=== PATIENT | female | born 1935 | race Caucasian/White ===

== ENCOUNTER → 2019-07-19 | Outpatient (CLI) | payer MEDICARE ==
--- NOTE | 2019-07-19 11:13 | BD ---
EXAMINATION TYPE: Axial Bone Density DATE OF EXAM: 07/19/2019 COMPARISON: NONE CLINICAL HISTORY: Postmenopausal female, disorder of bone Height: 63 Weight: 205 FRAX RISK QUESTIONS: Alcohol (3 or more units per day): no Family History (Parent hip fracture): no Glucocorticoids (More than 3mos): no (Ex: prednisone, prednisolone, methylprednisolone, dexamethasone, and hydrocortisone). History of Fracture in Adulthood: no Secondary Osteoporosis: 1. Type 1 Diabetes: no 2. Hyperthyroidism: no 3. Menopause before 45: no 4. Malnutrition: no 5. Chronic liver disease: no Rheumatoid Arthritis: no Current Tobacco Use: no RISK FACTORS HISTORY OF: Family History of Osteoporosis: unsure Active: yes Diet low in dairy products/other sources of calcium: at least one serving a day Postmenopausal woman: yes Take estrogen and/or progesterone medications: no Lost more than 2 inches in height since high school: no Frequent falls: no Poor Health: no, fair health because of dental problems Hyperparathyroidism: no Adrenal Insufficiency: no MEDICATIONS: Prednisone or other steroids: no Thyroid Medications: yes Which medication: Synthroid How Long: unsure, at least over 10 years Osteoporosis Medications: yes, Evista How long: unsure Additional Medications: medication for AFib ; Lipitor; blood pressure med Additional History: bilateral knee replacement; hypothyroid EXAM MEASUREMENTS: Bone mineral densitometry was performed using the [employer] System. Bone mineral density as measured about the Lumbar spine is: ----- L1-L4(G/cm2): 0.955 T Score Values are as follows: ----- L2: -1.3 ----- L3: -1.6 ----- L4: -2.3 ----- L1-L4: -1.9 Bone mineral density not previously done t this facility; done elsewhere many years ago Bone mineral density about the R hip (g/cm2): 0.694 Bone mineral density about the L hip (g/cm2): 0.668 T Score values are as follows: -----R Neck: -2.5 -----L Neck: -2.7 -----R Total: -2.6 -----L Total: -2.2 Bone mineral density not previously done at this facility; done elsewhere years ago IMPRESSION: Osteoporosis (T Score less than -2.5) femoral neck level left hip and overall right hip. Bone density likely falsely elevated in the low back. There is increased fracture risk and therapy is usually indicated based on age. Re-Screen 1-2 years. NOTE: T-SCORE=SD OF THE YOUNG ADULT MEAN.
== END ==
LOC: RADBDWWP 09:11
PROVIDERS: ATTEND Internal Medicine
DX: M81.8 Other osteoporosis without current pathological fracture (principal)
CPT/HCPCS: 77080

== ENCOUNTER → 2020-03-26 | Outpatient (CLI) | payer MEDICARE | END | disposition home or self-care (01) | LOC: LABWHC1 12:09 | PROVIDERS: ATTEND Ophthalmology | DX: I77.89 Other specified disorders of arteries and arterioles (principal) | CPT/HCPCS: 36415; 85652; 86140 ==

== ENCOUNTER → 2021-02-14 | Outpatient (CLI) | payer MEDICARE ==
--- NOTE | 2021-02-14 13:18 | XR ---
EXAMINATION TYPE: XR ankle complete RT DATE OF EXAM: 02/14/2021 COMPARISON: NONE HISTORY: Pain TECHNIQUE: Frontal, lateral and oblique images of the right ankle are obtained. COMPARISON: None. FINDINGS: There is no acute fracture/dislocation evident. The joint spaces appear within normal chatterjee its. Lateral soft tissue swelling noted. IMPRESSION: There is no acute fracture or dislocation seen.
== END | disposition home or self-care (01) ==
LOC: RADXRMAIN 11:11
PROVIDERS: ATTEND Internal Medicine
DX: M25.571 Pain in right ankle and joints of right foot (principal)

== ENCOUNTER 2021-06-21 11:48 | Emergency (ER) | payer MEDICARE ==
--- NOTE | 2021-06-21 12:16 | ED ---
General Adult HPI - General Chief complaint: Syncope Stated complaint: Syncope Time Seen by Provider: 06/21/21 12:00 Source: patient, EMS, RN notes reviewed, old records reviewed Mode of arrival: EMS Limitations: no limitations - History of Present Illness Initial comments: This is an 86-year-old female presents emergency department stating she got up l ate today did not eat breakfast wanted to take a hot shower. Patient states when she had shower she passed out. There is no indication of how long she was unconscious for but the came in and she woke up fairly quickly according to EMS. Patient denies any headache patient denies any numbness weakness. Patient denies any lightheadedness prior to the event. Patient denies any chest pain palpitations difficulty breathing shortness of breath. Patient states she did not take her Toprol today. Patient states she takes eliquis. Patient does not know if she's ever been told she has a slow heart rate. Patient currently has no symptoms. Patient states there was no injury when she fell onto the shower. - Related Data Home Medications Medication Instructions Recorded Confirmed Apixaban [Eliquis] 5 mg PO BID 06/21/21 06/21/21 Atorvastatin [Lipitor] 20 mg PO DAILY 06/21/21 06/21/21 Cholecalciferol [Vitamin D3 (25 50 mcg PO DAILY 06/21/21 06/21/21 Mcg = 1000 Iu)] Levothyroxine Sodium [Synthroid] 137 mcg PO DAILY 06/21/21 06/21/21 Metoprolol Succinate (ER) [Toprol 25 mg PO DAILY 06/21/21 06/21/21 Xl] Raloxifene HCl 60 mg PO DAILY 06/21/21 06/21/21 Vit C/E/Zn/Coppr/Lutein/Zeaxan 1 cap PO BID 06/21/21 06/21/21 [Preservision Areds 2 Softgel] Allergies Allergy/AdvReac Type Severity Reaction Status Date / Time No Known Allergies Allergy Verified 06/21/21 13:53 Review of Systems ROS Statement: Those systems with pertinent positive or pertinent negative responses have been documented in the HPI. ROS Other: All systems not noted in ROS Statement are negative. Past Medical History Past Medical History: Coronary Artery Disease (CAD), Hypertension, Thyroid Disorder History of Any Multi-Drug Resistant Organisms: None Reported Past Surgical History: No Surgical Hx Reported Past Psychological History: No Psychological Hx Reported Smoking Status: Never smoker Past Alcohol Use History: Daily Past Drug Use History: None Reported General Exam - General Exam Comments Initial Comments: GENERAL: Patient is well-developed and well-nourished. Patient is nontoxic and well- hydrated and is in no acute distress. ENT: Neck is soft and supple. No significant lymphadenopathy is noted. Oropharynx is clear. Moist mucous membranes. Neck has full range of motion without eliciting any pain. EYES: The sclera were anicteric and conjunctiva were pink and moist. Extraocular movements were intact and pupils were equal round and reactive to light. Eyelids were unremarkable. PULMONARY: Unlabored respirations. Good breath sounds bilaterally. No audible rales rhonchi or wheezing was noted. CARDIOVASCULAR: There is a regular rate and rhythm without any murmurs gallops or rubs. ABDOMEN: Soft and nontender with normal bowel sounds. SKIN: Skin is clear with no lesions or rashes and otherwise unremarkable. NEUROLOGIC: Patient is alert and oriented x3. Cranial nerves II through XII are grossly intact. Motor and sensory are also intact. Normal speech, volume and content. Symmetrical smile. MUSCULOSKELETAL: Normal extremities with adequate strength and full range of motion. LYMPHATICS: No significant lymphadenopathy is noted PSYCHIATRIC: Normal psychiatric evaluation. Limitations: no limitations Course Vital Signs 06/21/21 06/21/21 06/21/21 11:54 12:55 13:34 Temperature 97.9 F 97.5 F L Pulse Rate 51 L 54 L Pulse Rate [ 72 Right Sitting Pulse Oximetery ] Pulse Rate [ 76 Right Standing Pulse Oximetery ] Pulse Rate [ 63 Right Supine Pulse Oximetery ] Respiratory 22 18 18 Rate Blood Pressure 169/68 180/81 Blood Pressure 184/77 [Right Arm Sitting] Blood Pressure 187/92 [Right Arm Standing] Blood Pressure 208/80 [Right Arm Supine] O2 Sat by Pulse 92 L 97 95 Oximetry Medical Decision Making - Medical Decision Making EKG shows sinus bradycardia 50 bpm WV interval 250 QRS 78 QT interval 452 QTC is or 12. Patient's EKG shows no ST segment patient. Chest x-ray shows no acute abnormality. Patient's blood pressure was elevated so gave the patient 10 of hydralazine. I suggested patient be admitted patient refused admission daughter was in the room she was okay with the patient going home. Daughter states she will stay with the patient tonight. Patient has a nurse come in every day at 10:00. - Lab Data Result diagrams: 06/21/21 12:13 06/21/21 12:13 Lab Results 06/21/21 06/21/21 06/21/21 Range/Units 12:13 12:13 12:13 WBC 8.8 (3.8-10.6) k/uL RBC 5.10 (3.80-5.40) m/uL Hgb 16.0 (11.4-16.0) gm/dL Hct 48.6 H (34.0-46.0) % MCV 95.3 (80.0-100.0) fL MCH 31.3 (25.0-35.0) pg MCHC 32.8 (31.0-37.0) g/dL RDW 13.1 (11.5-15.5) % Plt Count 261 (150-450) k/uL MPV 8.7 Neutrophils % 61 % Lymphocytes % 27 % Monocytes % 7 % Eosinophils % 3 % Basophils % 1 % Neutrophils # 5.3 (1.3-7.7) k/uL Lymphocytes # 2.3 (1.0-4.8) k/uL Monocytes # 0.6 (0-1.0) k/uL Eosinophils # 0.3 (0-0.7) k/uL Basophils # 0.1 (0-0.2) k/uL PT 11.6 (9.0-12.0) sec INR 1.1 (<1.2) APTT 24.3 (22.0-30.0) sec Sodium 141 (137-145) mmol/L Potassium 4.2 (3.5-5.1) mmol/L Chloride 106 (98-107) mmol/L Carbon Dioxide 22 (22-30) mmol/L Anion Gap 13 mmol/L BUN 16 (7-17) mg/dL Creatinine 0.86 (0.52-1.04) mg/dL Est GFR (CKD-EPI)AfAm 71 (>60 ml/min/1.73 sqM) Est GFR (CKD-EPI)NonAf 61 (>60 ml/min/1.73 sqM) Glucose 113 H (74-99) mg/dL Calcium 9.9 (8.4-10.2) mg/dL Magnesium 2.0 (1.6-2.3) mg/dL Total Bilirubin 0.8 (0.2-1.3) mg/dL AST 39 H (14-36) U/L ALT 24 (4-34) U/L Alkaline Phosphatase 92 (38-126) U/L Troponin I (0.000-0.034) ng/mL Total Protein 7.0 (6.3-8.2) g/dL Albumin 4.2 (3.5-5.0) g/dL 06/21/21 Range/Units 12:13 WBC (3.8-10.6) k/uL RBC (3.80-5.40) m/uL Hgb (11.4-16.0) gm/dL Hct (34.0-46.0) % MCV (80.0-100.0) fL MCH (25.0-35.0) pg MCHC (31.0-37.0) g/dL RDW (11.5-15.5) % Plt Count (150-450) k/uL MPV Neutrophils % % Lymphocytes % % Monocytes % % Eosinophils % % Basophils % % Neutrophils # (1.3-7.7) k/uL Lymphocytes # (1.0-4.8) k/uL Monocytes # (0-1.0) k/uL Eosinophils # (0-0.7) k/uL Basophils # (0-0.2) k/uL PT (9.0-12.0) sec INR (<1.2) APTT (22.0-30.0) sec Sodium (137-145) mmol/L Potassium (3.5-5.1) mmol/L Chloride (98-107) mmol/L Carbon Dioxide (22-30) mmol/L Anion Gap mmol/L BUN (7-17) mg/dL Creatinine (0.52-1.04) mg/dL Est GFR (CKD-EPI)AfAm (>60 ml/min/1.73 sqM) Est GFR (CKD-EPI)NonAf (>60 ml/min/1.73 sqM) Glucose (74-99) mg/dL Calcium (8.4-10.2) mg/dL Magnesium (1.6-2.3) mg/dL Total Bilirubin (0.2-1.3) mg/dL AST (14-36) U/L ALT (4-34) U/L Alkaline Phosphatase (38-126) U/L Troponin I <0.012 (0.000-0.034) ng/mL Total Protein (6.3-8.2) g/dL Albumin (3.5-5.0) g/dL Disposition Clinical Impression: Syncope and collapse, Bradycardia, Hypertension Disposition: HOME SELF-CARE Instructions (If sedation given, give patient instructions): Syncope (ED), Bradycardia (ED) Additional Instructions: Patient should reduce the metoprolol and only take half a dose every morning. Is patient prescribed a controlled substance at d/c from ED?: No Referrals: Vangie Jimenez MD [Primary Care Provider] - 1-2 days Time of Disposition: 14:15
[2021-06-21] MEDS: SODIUM CHLORIDE 0.9% 500 ML 500 ML IV STA (12:26)
--- NOTE | 2021-06-21 12:32 | XR ---
EXAMINATION TYPE: XR chest 2V DATE OF EXAM: 06/21/2021 COMPARISON: Chest x-ray April 26, 2013 HISTORY: Chest pain. TECHNIQUE: Frontal and lateral views of the chest are obtained. FINDINGS: Low lung volumes redemonstrated. There is some chronic parenchymal change without suspicio us new focal air space opacity, pleural effusion, or pneumothorax seen. The cardiac silhouette size remains within normal limits. Degenerative change left glenohumeral joint. IMPRESSION: Chronic changes without acute pulmonary process.
[2021-06-21 12:44] LABS: Basophils # (A) 0.1 k/uL (0-0.2); Basophils % (A) 1 %; Eosinophils # (A) 0.3 k/uL (0-0.7); Eosinophils % (A) 3 %; HCT 48.6 % (34.0-46.0); Lymphocytes # (A) 2.3 k/uL (1.0-4.8); Lymphocytes % (A) 27 %; MCH 31.3 pg (25.0-35.0); MCHC 32.8 g/dL (31.0-37.0); MCV 95.3 fL (80.0-100.0); Mean Platelet Volume 8.7; Monocytes # (A) 0.6 k/uL (0-1.0); Monocytes % (A) 7 %; Neutrophils # (A) 5.3 k/uL (1.3-7.7); Neutrophils % (A) 61 %; Platelet Count 261 k/uL (150-450); RDW 13.1 % (11.5-15.5); WBC 8.8 k/uL (3.8-10.6)
[2021-06-21 12:49] LABS: Albumin 4.2 g/dL (3.5-5.0); Calcium 9.9 mg/dL (8.4-10.2); Potassium 4.2 mmol/L (3.5-5.1); Total Bilirubin 0.8 mg/dL (0.2-1.3)
[2021-06-21 12:50] LABS: INR 1.1 (<1.2); Partial Thromboplastin Time 24.3 sec (22.0-30.0); Prothrombin Time 11.6 sec (9.0-12.0)
--- NOTE | 2021-06-21 13:17 | XR ---
EXAMINATION TYPE: XR femur LT DATE OF EXAM: 06/21/2021 CLINICAL HISTORY: Pain after fall injury. TECHNIQUE: Two views of the left femur are obtained. COMPARISON: None FINDINGS: Osseous structures are demineralized. There is no acute fracture or dislocation seen in th e left femur. Czli-oc-[id number] axial joint space loss left hip. Metallic hardware from left knee pro sthesis is satisfactory in position on frontal projection. Overlying clothing or blanket material is present. IMPRESSION: There is no acute fracture or dislocation in the left femur.
[2021-06-21 13:30] VITALS: RESP 18
[2021-06-21] MEDS: hydrALAZINE HCL 20 MG/ML 1 ML VIAL IVP STA (13:36)
[2021-06-21] MEDS ORDERED: hydrALAZINE HCL 20 MG/ML 1 ML VIAL IVP STA (14:15)
[2021-06-21 14:40] VITALS: BP 152/63; PULSE 57; TEMP 97.9
== END 2021-06-21 14:39 | disposition home or self-care (01) ==
LOC: EC 11:48
DX: I10 Essential (primary) hypertension (principal); I25.10 Atherosclerotic heart disease of native coronary artery without angina pectoris; Z79.01 Long term (current) use of anticoagulants; Z79.890 Hormone replacement therapy; Z79.899 Other long term (current) drug therapy
CPT/HCPCS: 36415; 93005; 80053; 83735; 84484; 85025; 85610; 85730; 73552; 71046; 99284; 96374; 96361; J0360

== ENCOUNTER 2021-07-23 13:31 | Emergency (ER) | payer MEDICARE ==
[2021-07-23] MEDS ORDERED: SODIUM CHLORIDE 0.9% 1,000 ML IV STA (15:24)
--- NOTE | 2021-07-23 15:36 | ED ---
Abdominal Pain HPI - General Chief Complaint: Abdominal Pain Stated Complaint: R side pain-sent by Dr. Jimenez Time Seen by Provider: 07/23/21 15:04 Source: patient Mode of arrival: ambulatory Limitations: no limitations - History of Present Illness Initial Comments: Patient is an 86-year-old female who presents with right-sided flank pain since 10 AM this morning. She states that she felt fine when she woke up but then experienced 10/10 right flank pain after eating breakfast. Patient states this pain has never happened before. Patient's daughter states that the pain was consistent until 1:30 PM where severity changed to a 1/10. She denies fever, chills, chest pain, shortness of breath, abdominal pain, nausea, vomiting, diarrhea, gross hematuria. Patient has no history of kidney stones or infection. She does note that she has been experiencing a urinary tract infection for 3 weeks. Currently, no dysuria or urinary frequency/urgency. She is on day 5 of ciprofloxacin and was sent here today after speaking with her primary care provider regarding the right flank pain. - Related Data Home Medications Medication Instructions Recorded Confirmed Apixaban [Eliquis] 5 mg PO BID 06/21/21 06/21/21 Atorvastatin [Lipitor] 20 mg PO DAILY 06/21/21 06/21/21 Cholecalciferol [Vitamin D3 (25 50 mcg PO DAILY 06/21/21 06/21/21 Mcg = 1000 Iu)] Levothyroxine Sodium [Synthroid] 137 mcg PO DAILY 06/21/21 06/21/21 Metoprolol Succinate (ER) [Toprol 25 mg PO DAILY 06/21/21 06/21/21 Xl] Raloxifene HCl 60 mg PO DAILY 06/21/21 06/21/21 Vit C/E/Zn/Coppr/Lutein/Zeaxan 1 cap PO BID 06/21/21 06/21/21 [Preservision Areds 2 Softgel] Colace 50mg 1 cap PO DAILY 07/23/21 07/23/21 Allergies Allergy/AdvReac Type Severity Reaction Status Date / Time No Known Allergies Allergy Verified 07/23/21 17:21 Review of Systems ROS Statement: Those systems with pertinent positive or pertinent negative responses have been documented in the HPI. ROS Other: All systems not noted in ROS Statement are negative. Past Medical History Past Medical History: Coronary Artery Disease (CAD), Hypertension, Thyroid Disorder History of Any Multi-Drug Resistant Organisms: None Reported Past Surgical History: No Surgical Hx Reported Past Psychological History: No Psychological Hx Reported Smoking Status: Former smoker Past Alcohol Use History: Daily Past Drug Use History: None Reported General Exam Limitations: no limitations General appearance: alert, in no apparent distress Head exam: Present: atraumatic, normocephalic, normal inspection Eye exam: Present: normal appearance, PERRL, EOMI. Absent: scleral icterus, conjunctival injection, periorbital swelling ENT exam: Present: normal exam, mucous membranes dry Respiratory exam: Present: normal lung sounds bilaterally. Absent: respiratory distress, wheezes, rales, rhonchi, stridor Cardiovascular Exam: Present: regular rate, normal rhythm, normal heart sounds. Absent: systolic murmur, diastolic murmur, rubs, gallop, clicks GI/Abdominal exam: Present: soft, normal bowel sounds. Absent: distended, tenderness, guarding, rebound, rigid Extremities exam: Present: normal inspection, full ROM, normal capillary refill. Absent: tenderness, pedal edema, joint swelling, calf tenderness Back exam: Present: normal inspection, full ROM. Absent: tenderness, CVA tenderness (R), CVA tenderness (L), muscle spasm, paraspinal tenderness, vertebral tenderness, rash noted Neurological exam: Present: alert, oriented X3, CN II-XII intact Psychiatric exam: Present: normal affect, normal mood Skin exam: Present: warm, dry, intact, normal color. Absent: rash Course Vital Signs 07/23/21 14:13 Temperature 97.4 F L Pulse Rate 56 L Respiratory 20 Rate Blood Pressure 189/81 O2 Sat by Pulse 92 L Oximetry Medical Decision Making - Medical Decision Making This is an 86-year-old female with right flank pain since this morning. Vitals are stable. Patient looks well resting in bed. CBC reveals leukocytosis with a left shift. Urinalysis reveals high RBCs. High WBC's likely secondary to passed kidney stone. CT abdomen/pelvis without contrast reveals a 3 mm bladder calculus near the right ureterovesicular junction layering within the bladder lumen, may representing a recently passed stone. hepatic steatosis, cholithiasis, colonic diverticulosis. - Lab Data Result diagrams: 07/23/21 16:01 Lab Results 07/23/21 07/23/21 Range/Units 16:01 16:40 WBC 16.5 H (3.8-10.6) k/uL RBC 5.08 (3.80-5.40) m/uL Hgb 16.0 (11.4-16.0) gm/dL Hct 49.3 H (34.0-46.0) % MCV 97.2 (80.0-100.0) fL MCH 31.5 (25.0-35.0) pg MCHC 32.4 (31.0-37.0) g/dL RDW 13.7 (11.5-15.5) % Plt Count 303 (150-450) k/uL MPV 9.0 Neutrophils % 86 % Lymphocytes % 9 % Monocytes % 3 % Eosinophils % 1 % Basophils % 0 % Neutrophils # 14.2 H (1.3-7.7) k/uL Lymphocytes # 1.5 (1.0-4.8) k/uL Monocytes # 0.5 (0-1.0) k/uL Eosinophils # 0.1 (0-0.7) k/uL Basophils # 0.1 (0-0.2) k/uL Urine Color Light Red Urine Appearance Cloudy H (Clear) Urine pH 6.5 (5.0-8.0) Ur Specific [place] 1.009 (1.001-1.035) Urine Protein 1+ H (Negative) Urine Glucose (UA) Negative (Negative) Urine Ketones Trace H (Negative) Urine Blood Large H (Negative) Urine Nitrite Negative (Negative) Urine Bilirubin Negative (Negative) Urine Urobilinogen <2.0 (<2.0) mg/dL Ur Leukocyte Esterase Trace H (Negative) Urine RBC >182 H (0-5) /hpf Urine WBC 20 H (0-5) /hpf Ur Squamous Epith Cells 1 (0-4) /hpf Urine Bacteria Occasional H (None) /hpf Urine Mucus Occasional H (None) /hpf Disposition Clinical Impression: Nephrolithiasis Disposition: HOME SELF-CARE Condition: Good Instructions (If sedation given, give patient instructions): Kidney Stones (ED) Additional Instructions: Follow-up with urology at earliest available appointment. Return to emergency department if there are any concerning, new, worsening symptoms. Is patient prescribed a controlled substance at d/c from ED?: No Referrals: Vangie Jimenez MD [Primary Care Provider] - 1-2 days Jean-Claude Freeman MD [STAFF PHYSICIAN] - 1-2 days Time of Disposition: 17:17
[2021-07-23 16:19] LABS: Basophils # (A) 0.1 k/uL (0-0.2); Basophils % (A) 0 %; Eosinophils # (A) 0.1 k/uL (0-0.7); Eosinophils % (A) 1 %; HCT 49.3 % (34.0-46.0); Lymphocytes # (A) 1.5 k/uL (1.0-4.8); Lymphocytes % (A) 9 %; MCH 31.5 pg (25.0-35.0); MCHC 32.4 g/dL (31.0-37.0); MCV 97.2 fL (80.0-100.0); Monocytes # (A) 0.5 k/uL (0-1.0); Monocytes % (A) 3 %; Neutrophils # (A) 14.2 k/uL (1.3-7.7); Neutrophils % (A) 86 %; Platelet Count 303 k/uL (150-450); RBC 5.08 m/uL (3.80-5.40); RDW 13.7 % (11.5-15.5); WBC 16.5 k/uL (3.8-10.6)
[2021-07-23 17:03] LABS: Appearance,Urine Cloudy (Clear); Bacteria,Urine Occasional /hpf; Bilirubin,Urine Negative (Negative); Blood,Urine Large (Negative); Color,Urine Light Red; Glucose,Urine (UA) Negative (Negative); Ketones,Urine Trace (Negative); Leukocyte Esterase,Urine Trace (Negative); Mucus,Urine Occasional /hpf; Nitrite,Urine Negative (Negative); PH, Urine 6.5 (5.0-8.0); Protein,Urine 1+ (Negative); RBC,Urine >182 /hpf (0-5); Specific Gravity,Urine 1.009 (1.001-1.035); Squamous Epithelial Cell,Urine 1 /hpf (0-4); Urobilinogen,Urine <2.0 mg/dL (<2.0); WBC,Urine 20 /hpf (0-5)
--- NOTE | 2021-07-23 17:05 | CT ---
EXAMINATION TYPE: CT abdomen pelvis wo con CT DLP: 1077.9 mGycm, Automated exposure control for dose reduction was used. DATE OF EXAM: 07/23/2021 4:35 PM COMPARISON: CLINICAL INDICATION:Female, 86 years old with history of flank pain; right flank pain TECHNIQUE: Renal stone protocol CT of the abdomen and pelvis without IV or oral contrast. Lack of IV or oral contrast limits evaluation of solid and hollow organ viscera. Coronal and sagittal reformats were performed. FINDINGS: LOWER CHEST: Unremarkable ABDOMEN LIVER: Diffusely hypoattenuating parenchyma. GALLBLADDER AND BILE DUCTS: Layering increased densities within the lumen consistent with gallstones are present. PANCREAS: Unremarkable. SPLEEN: Unremarkable. ADRENAL GLANDS: Unremarkable. KIDNEYS AND URETERS: Mild right hydroureteronephrosis evidence for obstructing calculus. Left renal c ollecting system is unremarkable. No evidence of renal calculus or cyst. No evidence of right renal c alculi. PELVIS BLADDER: A 3 mm layering calculus near the right ureterovesicular junction in the bladder lumen. REPRODUCTIVE: Unremarkable. ABDOMEN & PELVIS STOMACH AND BOWEL: Small hiatal hernia, duodenum is unremarkable. Scattered diverticula are noted thr oughout the colon. No evidence of bowel obstruction. The appendix is visualized and within normal chatterjee its. PERITONEUM: No evidence of pneumoperitoneum or free fluid. VASCULATURE: Mild atherosclerotic calcifications are present throughout the abdominal aorta and its b ranches. MUSCULOSKELETAL: Mild disc degeneration changes are present throughout the thoracolumbar spine. L4-L5 disc osteophyte complex with at least mild spinal canal stenosis. LYMPH NODES: No gross evidence for lymphadenopathy. SOFT TISSUE/ABDOMINAL WALL: Fat filled umbilical hernia measuring 12 mm at the neck. IMPRESSION: 1. Mild right hydroureteronephrosis without evidence for obstructing calculus. There is a 3 mm bladd er calculus near the right ureterovesicular junction layering within the bladder lumen. This may repr esent recently passed stone. 2. Hepatic steatosis. 3. Cholelithiasis. 4. Colonic diverticulosis.
[2021-07-23 17:21] LABS: ALT 25 U/L (4-34); AST 47 U/L (14-36); African American GFR (CKD) >90 (>60 ml/min/1.73 sqM); Alkaline Phosphatase 106 U/L (38-126); Anion Gap 8 mmol/L; Blood Urea Nitrogen 16 mg/dL (7-17); Calcium 9.6 mg/dL (8.4-10.2); Carbon Dioxide 27 mmol/L (22-30); Chloride 104 mmol/L (98-107); Glucose 113 mg/dL (74-99); Lipase 120 U/L (23-300); Non-African American GFR(CKD) 79 (>60 ml/min/1.73 sqM); Potassium 4.5 mmol/L (3.5-5.1); Sodium 139 mmol/L (137-145); Total Bilirubin 0.7 mg/dL (0.2-1.3); Total Protein 6.7 g/dL (6.3-8.2)
[2021-07-23 18:02] VITALS: BP 182/79; PULSE 69; RESP 18; TEMP 97.6
== END 2021-07-23 17:55 | disposition home or self-care (01) ==
LOC: EC 13:31
DX: N20.0 Calculus of kidney (principal); I10 Essential (primary) hypertension; I25.10 Atherosclerotic heart disease of native coronary artery without angina pectoris; Z87.891 Personal history of nicotine dependence; Z79.01 Long term (current) use of anticoagulants; Z79.890 Hormone replacement therapy; Z79.899 Other long term (current) drug therapy
CPT/HCPCS: 36415; 74176; 80053; 81001; 83690; 85025; 87086; 96360; 99284

== ENCOUNTER → 2021-08-05 | Outpatient (CLI) | payer MEDICARE ==
--- NOTE | 2021-08-05 13:07 | CT ---
EXAMINATION TYPE: CT brain jeff wo con DATE OF EXAM: 08/05/2021 COMPARISON: None HISTORY: Syncope. CT DLP: 1729.[address] of the brain was performed. The ventricles, basal cisterns and sulci overlying the cerebral convexities demonstrate moderate enla rgement. There is no evidence for intracranial hemorrhage or sulcal effacement. There is decreased attenuatio n about the periventricular white matter and deep white matter of both cerebral hemispheres, compatib le with chronic small vessel ischemia. No mass effects are seen. If symptoms persist consider MRI. Osseous calvarium is intact. IMPRESSION: 1. Age related atrophic and chronic small vessel ischemic change without acute intracranial process seen at this time. CT Cervical Spine: Unenhanced CT of the cervical spine was performed with bone and soft tissue window settings submitted . Coronal and sagittal reconstruction is obtained. There is normal alignment and prevertebral soft tissues. No evidence for acute cervical fracture . Scattered degenerative disc disease and spondylosis. Biapical scarring. IMPRESSION: 1. No evidence for acute fracture or subluxation of the cervical spine.
--- NOTE | 2021-08-05 15:58 | US ---
EXAMINATION TYPE: US carotid duplex BILAT DATE OF EXAM: 08/05/2021 COMPARISON: NONE CLINICAL HISTORY: 86-year-old female [id number] SYNCOPE. TECHNIQUE: Carotid duplex ultrasound examination. Indirect Doppler criteria was utilized. FINDINGS: EXAM MEASUREMENTS: RIGHT: Peak Systolic Velocity (PSV) cm/sec ----- Right CCA: 68.6 ----- Right ICA: 102 ----- Right ECA: 112 ICA/CCA ratio: 1.5 RIGHT: End Diastole cm/sec ----- Right CCA: 7.9 ----- Right ICA: 10.8 ----- Right ECA: 10.2 LEFT: Peak Systolic Velocity (PSV) cm/sec ----- Left CCA: 72.8 ----- Left ICA: 90.9 ----- Left ECA: 96.0 ICA/CCA ratio: 1.25 LEFT: End Diastole cm/sec ----- Left CCA: 13.4 ----- Left ICA: 22.3 ----- Left ECA: 6.0 VERTEBRALS (direction of flow): Right Vertebral: Antegrade Left Vertebral: Antegrade Rhythm: Normal Rattling Machine Tender notes: Mild plaque with no significant velocity elevations. IMPRESSION: No hemodynamically significant internal carotid artery stenosis on either side. Criteria for Assigning % of Stenosis / Diameter reduction (Estimation based on the indirect measurements of the internal carotid artery velocities (ICA PSV). 1. Normal (no stenosis)=ICA PSV < 125 cm/s: ratio < 2.0: ICA EDV<40 cm/s. 2. Less than 50% stenosis=ICA PSV < 125 cm/s: ratio < 2.0: ICA EDV<40 cm/s. 3. 50 to 69% stenosis=ICA PSV of 125 to 230 cm/s: ration 2.0 ? 4.0: ICA EDV 40-100 cm/s. 4. Greater than 70% stenosis to near occlusion= ICA PSV > 230 cm/s: ratio > 4.0: ICA EDV > 100 cm/s. 5. Near occlusion= ICA PSV velocities may be low or undetectable: variable ratio and ICA EDV. 6. Total occlusion=unable to detect flow.
--- NOTE | 2021-08-06 11:00 | ECHOF ---
Referral Reason:[id number] SYNCOPE MEASUREMENTS -------- HEIGHT: 162.6 cm WEIGHT: 81.7 kg BP: 189/86 RVIDd: 3.0 cm (< 3.3) IVSd: 1.0 cm (0.6 - 1.1) LVIDd: 5.0 cm (3.9 - 5.3) LVPWd: 1.0 cm (0.6 - 1.1) IVSs: 1.7 cm LVIDs: 2.9 cm LVPWs: 1.5 cm LA Diam: 3.3 cm (2.7 - 3.8) LAESV Index (A-L): 31.88 ml/m Ao Diam: 2.8 cm (2.0 - 3.7) AV Cusp: 2.3 cm (1.5 - 2.6) MV EXCURSION: 17.007 mm (> 18.000) MV EF SLOPE: 67 mm/s (70 - 150) EPSS: 1.8 cm MV E Kwame: 0.86 m/s MV DecT: 217 ms MV A Kwame: 1.05 m/s MV E/A Ratio: 0.82 AR PHT: 1351 ms RAP: 5.00 mmHg RVSP: 38.41 mmHg FINDINGS -------- Sinus rhythm. The left ventricular size is normal. Left ventricular wall thickness is normal. Overall left vent ricular systolic function is normal with, an EF between 60 - 65 %. The right ventricle is normal in size. Normal LA size by volume 22+/-6 ml/m2. The right atrium is normal in size. Interatrial and interventricular septum intact. Trace to mild aortic regurgitation. Mild mitral regurgitation is present. Mild tricuspid regurgitation present. There is mild pulmonary hypertension. The right ventricular systolic pressure, as measured by Doppler, is 38.41mmHg. Trace/mild (physiologic) pulmonic regurgitation. The aortic root size is normal. IVC Not well visulized. There is no pericardial effusion. CONCLUSIONS -------- 1. Sinus rhythm. 2. The left ventricular size is normal. 3. Left ventricular wall thickness is normal. 4. Overall left ventricular systolic function is normal with, an EF between 60 - 65 %. 5. Normal LA size by volume 22+/-6 ml/m2. 6. Trace to mild aortic regurgitation. 7. Mild mitral regurgitation is present. 8. Mild tricuspid regurgitation present. 9. There is mild pulmonary hypertension. 10. The right ventricular systolic pressure, as measured by Doppler, is 38.41mmHg. 11. Trace/mild (physiologic) pulmonic regurgitation. 12. The aortic root size is normal. 13. There is no pericardial effusion. BAND SAW FILER: Lissa Garcia RDCS
== END | disposition home or self-care (01) ==
LOC: RADECHMAIN 11:58
PROVIDERS: ATTEND Internal Medicine
DX: I67.82 Cerebral ischemia (principal); G31.89 Other specified degenerative diseases of nervous system; I08.3 Combined rheumatic disorders of mitral, aortic and tricuspid valves; I27.20 Pulmonary hypertension, unspecified
CPT/HCPCS: 70450; 72125; 93306; 93880

== ENCOUNTER 2021-11-22 12:43 | Inpatient (IN) | payer MEDICARE ==
--- NOTE | 2021-11-22 13:23 | ED ---
General Adult HPI - General Chief complaint: Syncope Stated complaint: Syncope Time Seen by Provider: 11/22/21 13:00 Source: patient, EMS, RN notes reviewed Mode of arrival: EMS Limitations: no limitations - History of Present Illness Initial comments: Patient is a pleasant 86-year-old female presenting to the emergency department with friend following near syncopal episode. Patient [place] when she started not feeling well. Patient felt weak all over. Bystanders stated her color looked off. Patient felt generally weak and sat down. She was given orange juice and then started to feel somewhat better. Patient still feel s slightly weak at this time. Patient denies any isolated area of weakness. Patient noticed no difficulty with walking. No chest or back pain. No abdominal pain. No headache. No confusion. No history of similar symptoms previously. Patient did not pass out. Friend is present who helps provide history. Last known well was 12:30 - Related Data Home Medications Medication Instructions Recorded Confirmed Apixaban [Eliquis] 5 mg PO BID 06/21/21 11/22/21 Atorvastatin [Lipitor] 20 mg PO HS 06/21/21 11/22/21 Cholecalciferol [Vitamin D3 (25 25 mcg PO DAILY 06/21/21 11/22/21 Mcg = 1000 Iu)] Levothyroxine Sodium [Synthroid] 137 mcg PO DAILY 06/21/21 11/22/21 Metoprolol Succinate (ER) [Toprol 12.5 mg PO DAILY 06/21/21 11/22/21 Xl] Raloxifene HCl 60 mg PO HS 06/21/21 11/22/21 Vit C/E/Zn/Coppr/Lutein/Zeaxan 1 cap PO BID 06/21/21 11/22/21 [Preservision Areds 2 Softgel] Docusate [Colace] 100 mg PO DAILY PRN 11/22/21 11/22/21 Allergies Allergy/AdvReac Type Severity Reaction Status Date / Time No Known Allergies Allergy Verified 11/22/21 14:13 Review of Systems ROS Statement: Those systems with pertinent positive or pertinent negative responses have been documented in the HPI. ROS Other: All systems not noted in ROS Statement are negative. Constitutional: Denies: fever Eyes: Denies: eye pain ENT: Denies: ear pain Respiratory: Denies: cough, dyspnea Cardiovascular: Denies: chest pain Endocrine: Denies: fatigue Gastrointestinal: Denies: abdominal pain Genitourinary: Denies: dysuria Musculoskeletal: Denies: back pain Skin: Denies: rash Neurological: Reports: as per HPI, weakness. Denies: headache, numbness, paresthesias, confusion, abnormal gait, vertigo Past Medical History Past Medical History: Coronary Artery Disease (CAD), Hypertension, Thyroid Disorder History of Any Multi-Drug Resistant Organisms: None Reported Past Surgical History: No Surgical Hx Reported Past Psychological History: No Psychological Hx Reported Smoking Status: Former smoker Past Alcohol Use History: Daily Past Drug Use History: None Reported General Exam Limitations: no limitations General appearance: alert, in no apparent distress Head exam: Present: normocephalic Eye exam: Present: normal appearance, PERRL, EOMI. Absent: nystagmus ENT exam: Present: normal oropharynx Neck exam: Present: normal inspection. Absent: tenderness Respiratory exam: Present: normal lung sounds bilaterally Cardiovascular Exam: Present: regular rate, normal rhythm GI/Abdominal exam: Present: soft. Absent: tenderness Extremities exam: Present: normal inspection Neurological exam: Present: alert, oriented X3, CN II-XII intact Expanded Neurological exam: Present: protecting the airway Patient oriented to: Present: person, place, time Speech: Present: fluid speech Cranial nerves: EOM's Intact: Normal, Facial Sensation: Normal Sensory exam: Upper Extremity Light Touch: Normal, Lower Extremity Light Touch: Normal Motor strength exam: RUE: 5, LUE: 5, RLE: 3, LLE: 5 Eye Response: (4) open spontaneously Motor Response: (6) obeys commands Verbal Response: (5) oriented Psychiatric exam: Present: normal affect, normal mood Skin exam: Present: normal color Course Vital Signs 11/22/21 12:48 Temperature 97.0 F L Pulse Rate 58 L Respiratory 18 Rate Blood Pressure 116/44 O2 Sat by Pulse 93 L Oximetry - Reevaluation(s) Reevaluation #1: 11/22/21 13:22 Code stroke was called. Patient felt to be unlikely to receive TPA secondary to risks outweigh benefits. [facility] 1. 11/22/21 14:03 Case was discussed with Dr. Hall who confirmed not a TPA candidate secondary to risks outweigh benefits. Patient reevaluated and updated. EKG Findings - EKG Comments: EKG Findings:: Sinus bradycardia 52. IL 167. QRS 80. QT 412. QTC 393. Normal axis. Normal QRS. No acute ST change. Medical Decision Making - Medical Decision Making Case was discussed with Dr. Gonzalez from [facility] who will admit covering Dr. Harrison. - Lab Data Result diagrams: 11/22/21 14:10 - Radiology Data Radiology results: report reviewed (Computed tomography scan of the brain shows atrophy and chronic small vessel disease. 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 No acute process.) Disposition Clinical Impression: CVA (cerebral vascular accident) Disposition: ADMITTED IP TO THIS HOSP Is patient prescribed a controlled substance at d/c from ED?: No Time of Disposition: 14:07
--- NOTE | 2021-11-22 13:51 | CT ---
EXAMINATION TYPE: CT brain wo con for TPA DATE OF EXAM: 11/22/2021 HISTORY: cva. Acute onset neuro deficit. CT DLP: 1086.6 mGycm. Automated Exposure Control for Dose Reduction was Utilized. TECHNIQUE: CT scan of the head is performed without contrast. COMPARISON: Prior CT brain August 05, 2021. FINDINGS: There is no acute intracranial hemorrhage or midline shift identified. There is mild to m oderate diffuse ventricular and sulcal prominence consistent with diffuse age-related cerebral atroph y redemonstrated. There is more advanced low-attenuation in the periventricular white matter consist ent with chronic small vessel ischemic change redemonstrated. Suspected old infarct in the left inter nal capsule axial image 24 redemonstrated . The globes are intact and the visualized sinuses are daija r. IMPRESSION: No acute intracranial hemorrhage or midline shift. There is mild to moderate diffuse ce rebral atrophy and advanced chronic small vessel ischemic change along with old left-sided infarct re demonstrated. No significant change from recent CT. Attempts made to communicate preliminary results to emergency room. No one answered phone.
--- NOTE | 2021-11-22 14:06 | XR ---
EXAMINATION TYPE: XR chest 2V DATE OF EXAM: 11/22/2021 COMPARISON: Chest x-ray June 21, 2021 HISTORY: Altered mental status and weakness. TECHNIQUE: Frontal and lateral views of the chest are obtained. FINDINGS: Low lung volumes and chronic parenchymal changes bilaterally redemonstrated. Overlying bra strap current study. There is no suspicious new focal air space opacity, pleural effusion, or pneumot horax seen. The cardiac silhouette size remains within normal limits. The osseous structures remai n demineralized. IMPRESSION: Chronic changes and low lung volumes without new suspicious acute pulmonary process.
[2021-11-22] MEDS ORDERED: ASPIRIN 325 MG TAB PO STA (14:07)
[2021-11-22 14:19] LABS: Basophils # (A) 0.1 k/uL (0-0.2); Basophils % (A) 1 %; Eosinophils # (A) 0.1 k/uL (0-0.7); Eosinophils % (A) 1 %; HCT 46.8 % (34.0-46.0); HGB 14.4 gm/dL (11.4-16.0); Lymphocytes # (A) 1.6 k/uL (1.0-4.8); Lymphocytes % (A) 17 %; MCHC 30.9 g/dL (31.0-37.0); MCV 97.2 fL (80.0-100.0); Mean Platelet Volume 8.3; Monocytes # (A) 0.7 k/uL (0-1.0); Monocytes % (A) 7 %; Neutrophils # (A) 6.9 k/uL (1.3-7.7); Neutrophils % (A) 72 %; Platelet Count 282 k/uL (150-450); RBC 4.81 m/uL (3.80-5.40); RDW 13.2 % (11.5-15.5); WBC 9.6 k/uL (3.8-10.6)
[2021-11-22 14:33] LABS: Albumin 3.7 g/dL (3.5-5.0); Calcium 9.1 mg/dL (8.4-10.2); Potassium 4.7 mmol/L (3.5-5.1); Total Bilirubin 0.5 mg/dL (0.2-1.3); Total Protein 6.1 g/dL (6.3-8.2)
[2021-11-22 14:36] LABS: INR 1.1 (<1.2); Partial Thromboplastin Time 25.4 sec (22.0-30.0); Prothrombin Time 12.2 sec (9.0-12.0)
[2021-11-22] MEDS: SODIUM CHLORIDE 0.9% 1,000 ML IV SCH (14:38)
--- NOTE | 2021-11-22 14:47 | CT ---
EXAMINATION TYPE: CT angio head neck DATE OF EXAM: 11/22/2021 HISTORY: cva COMPARISON: None CT DLP: 591.2 mGycm. Automated Exposure Control for Dose Reduction was Utilized. TECHNIQUE: CTA scan of the head and neck is performed with IV Contrast, patient injected with 65cc m L of Isovue 370, axial images are obtained, coronal and sagittal reformatted images are reviewed. 3D reconstructed images are created on an independent workstation and reviewed. FINDINGS: The brachiocephalic origins are widely patent without significant stenosis. The left common carotid artery and left carotid bifurcation within the neck is widely patent. There i s a mild stenosis at the origin of the right internal carotid artery. Intracranially, there is no si gnificant stenosis within the anterior or posterior circulation and there are no sizable aneurysm sac s or arteriovascular malformations. IMPRESSION: No significant stenosis within the carotid arteries within the neck or within the intracerebral arter ial circulation. There is a mild focal stenosis of the origin of the right internal carotid artery. NASCET criteria was used in interpretation of this exam?
[2021-11-22] MEDS ORDERED: DOCUSATE 100 MG CAP PO PRN (16:10)
--- NOTE | 2021-11-22 16:33 | P.HPIM ---
History of Present Illness H&P Date: 11/22/21 Chief Complaint: right leg weakness 86 year old woman with history of HTN, HLD, Hypothyroidism, Paroxysmal Atrial Fibrillation who presented with right leg weakness. Pt says she was in her usual state of health this morning, and went to the [employer] club so that she could play bridge with her friends. When she was walking down the stairs she noticed some right leg weakness that almost made her fall. She was helped to the ground by bystanders who gave her some juice, which helped slightly but did not resolve her weakness. She presented to the hospital for further evaluation for this reason. At present, she denies: fevers, chills, nausea, vomiting, chest pain palpitations, cough, dyspnea, abdominal pain, constipation, diarrhea, dyschezia, dysuria, numbness of extremities. In the ER, she is afebrile, 116/44, HR 58, 93% on room air. CBC is unremarkable, chemistries, LFTs are unremarkable. Coags show mildly elevated PT to 12.2, INR is 1.1. Initial troponin is negative. Brain CT was negative for bleed. CXR is clear. EKG shows NSR without evidence of ischemia. CT Angiography of H/N shows mild right ICA stenosis, otherwise clear. All Systems reviewed and pertinent positives and negatives noted in HPI, all other symptoms are negative Gen: awake, alert HEENT: normocephalic, atraumatic, good hearing acuity, moist mucous membranes Resp: good air exchange, breathing comfortably with no accessory muscle use CVS: good distal perfusion x 4, GI: soft, NTTP, ND : no SPT, no CVAT, fisher catheter not present MSK: no pitting edema, no clubbing Neuro: 5 out of 5 motor strength throughout except for the right lower extremity which is 4+ to 5, sensation to fine and light touch are intact throughout, cranial nerves II through XII are intact Psych: cooperative, euthymic mood Labs and Imaging reviewed as above: Assessment/plan: Right Leg Weakness -Admit to observation, telemetry -Neurology consult -MRI pending -Echo pending -A1c, TSH, Lipid panel pending -ASA, statin -PT/OT HTN HLD Hypothyroidism Paroxysmal Atrial Fibrillation -Home medications reviewed and reconciled Pt is No Code DVT PPx covered with eliquis Past Medical History Past Medical History: Coronary Artery Disease (CAD), Hypertension, Thyroid Disorder History of Any Multi-Drug Resistant Organisms: None Reported Past Surgical History: No Surgical Hx Reported Past Psychological History: No Psychological Hx Reported Smoking Status: Former smoker Past Alcohol Use History: Daily Past Drug Use History: None Reported Medications and Allergies Home Medications Medication Instructions Recorded Confirmed Type Apixaban [Eliquis] 5 mg PO BID 06/21/21 11/22/21 History Atorvastatin [Lipitor] 20 mg PO HS 06/21/21 11/22/21 History Cholecalciferol [Vitamin D3 (25 25 mcg PO DAILY 06/21/21 11/22/21 History Mcg = 1000 Iu)] Levothyroxine Sodium [Synthroid] 137 mcg PO DAILY 06/21/21 11/22/21 History Metoprolol Succinate (ER) [Toprol 12.5 mg PO DAILY 06/21/21 11/22/21 History Xl] Raloxifene HCl 60 mg PO HS 06/21/21 11/22/21 History Vit C/E/Zn/Coppr/Lutein/Zeaxan 1 cap PO BID 06/21/21 11/22/21 History [Preservision Areds 2 Softgel] Docusate [Colace] 100 mg PO DAILY PRN 11/22/21 11/22/21 History Allergies Allergy/AdvReac Type Severity Reaction Status Date / Time No Known Allergies Allergy Verified 11/22/21 14:13 Physical Exam Osteopathic Statement: *. No significant issues noted on an osteopathic structural exam other than those noted in the History and Physical/Consult. Vitals: Vital Signs Temp Pulse Resp BP Pulse Ox 11/22/21 14:39 54 L 18 133/63 97 11/22/21 12:48 97.0 F L 58 L 18 116/44 93 L Intake and Output 11/22/21 11/22/21 11/22/21 06:59 14:59 22:59 Other: Weight 77.111 kg Results CBC & Chem 7: 11/22/21 14:10 11/22/21 14:10 Labs: Abnormal Lab Results - Last 24 Hours (Table) 11/22/21 11/22/21 11/22/21 Range/Units 14:10 14:10 14:10 Hct 46.8 H (34.0-46.0) % MCHC 30.9 L (31.0-37.0) g/dL PT 12.2 H (9.0-12.0) sec Glucose 102 H (74-99) mg/dL Total Protein 6.1 L (6.3-8.2) g/dL
--- NOTE | 2021-11-22 18:38 | CA ---
Transthoracic Echo Report Name: Namita Velazquez Age: 86 Gender: F : 1935 Exam Date: 11/22/2021 14:20 Exam Location: [facility] Ht (in): 64 Wt (lb): 170 Ordering Physician: Rj Schaffer DO Attending/Referring Phys: Ld Teacher Elda Babin RDCS Procedure CPT: Indications: Thrombus Cardiac Hx: Technical Quality: Fair Contrast 1: Total Dose (mL): Contrast 2: Total Dose (mL): MEASUREMENTS (Male / Female) Normal Values 2D ECHO LV Diastolic Diameter PLAX 3.9 cm 4.2 - 5.9 / 3.9 - 5.3 cm LV Systolic Diameter PLAX 2.5 cm IVS Diastolic Thickness 1.3 cm 0.6 - 1.0 / 0.6 - 0.9 cm LVPW Diastolic Thickness 1.3 cm 0.6 - 1.0 / 0.6 - 0.9 cm LV Relative Wall Thickness 0.7 RV Internal Dim ED PLAX 2.8 cm LA Volume 53.2 cm??? 18 - 58 / 22 - 52 cm??? M-MODE Aortic Root Diameter MM 2.6 cm LA Systolic Diameter MM 2.7 cm LA Ao Ratio MM 1.1 AV Cusp Separation MM 1.6 cm DOPPLER AV Peak Velocity 110.1 cm/s AV Peak Gradient 4.8 mmHg AI Peak Velocity 291.9 cm/s AI Peak Gradient 34.1 mmHg AI Pressure Half Time 686.8 ms LVOT Peak Velocity 87.8 cm/s LVOT Peak Gradient 3.1 mmHg Mitral E Point Velocity 57.1 cm/s Mitral A Point Velocity 84.9 cm/s Mitral E to A Ratio 0.7 MV E' Velocity 3.6 cm/s Mitral E to MV E' Ratio 16.0 TR Peak Velocity 259.0 cm/s TR Peak Gradient 26.8 mmHg Right Ventricular Systolic Press 31.6 mmHg FINDINGS Left Ventricle Moderately increased left ventricular wall thickness. Left ventricular cavity size normal. Normal left ventricular systolic function with no obvious regional wall motion abnormalities. Normal left ventricular diastolic filling pattern. Left ventricular ejection fraction is estimated at 55-60 %. Right Ventricle Normal right ventricular size and function. Right ventricular systolic pressure within normal limits. Right Atrium Normal right atrial size. Left Atrium Mildly increased left atrial volume. No evidence for an atrial septal defect. Mitral Valve Mild mitral annular calcification. Moderate mitral regurgitation. Aortic Valve Trace aortic regurgitation. Tricuspid Valve Mild tricuspid regurgitation. Pulmonic Valve Trace to mild pulmonic regurgitation. Pericardium No pericardial effusion. Aorta Normal size aortic root and proximal ascending aorta. CONCLUSIONS Normal left ventricular dimension and systolic function Moderate mitral regurgitation Previewed by: Dr. Roc Felipe MD (Electronically Signed) Final Date: 22 Nov 2021 18:37
[2021-11-22 20:35] VITALS: RESP 18
[2021-11-22] MEDS ORDERED: RALOXIFENE 60 MG TAB PO SCH (21:00)
[2021-11-22] MEDS ORDERED: ATORVASTATIN 20 MG TAB PO SCH (21:00)
[2021-11-22] MEDS: VIT A,C & E-LUTEIN-MINERALS 1 EACH TAB PO SCH (22:21)
[2021-11-22] MEDS: APIXABAN 5 MG TAB PO SCH (22:21)
[2021-11-23] MEDS: SODIUM CHLORIDE 0.9% 1,000 ML IV SCH ×2 (04:32→10:10)
[2021-11-23 05:59] VITALS: TEMP 97.5
[2021-11-23] MEDS ORDERED: LEVOTHYROXINE 137 MCG TAB PO SCH (06:30)
[2021-11-23] MEDS ORDERED: ASPIRIN 325 MG TAB PO SCH (09:00)
[2021-11-23] MEDS ORDERED: CHOLECALCIFEROL 25 MCG (1000 IU) TABLET PO SCH (09:00)
[2021-11-23] MEDS ORDERED: METOPROLOL SUCCINATE (ER) 25 MG TAB.ER.24H PO SCH (09:00)
[2021-11-23] MEDS ORDERED: ASPIRIN 81 MG PO SCH (09:00)
[2021-11-23 09:01] LABS: Basophils # (A) 0.1 k/uL (0-0.2); Basophils % (A) 1 %; Eosinophils # (A) 0.3 k/uL (0-0.7); Eosinophils % (A) 4 %; HCT 42.6 % (34.0-46.0); HGB 13.4 gm/dL (11.4-16.0); Lymphocytes # (A) 2.6 k/uL (1.0-4.8); Lymphocytes % (A) 33 %; MCH 30.9 pg (25.0-35.0); MCHC 31.4 g/dL (31.0-37.0); MCV 98.4 fL (80.0-100.0); Mean Platelet Volume 8.4; Monocytes # (A) 0.5 k/uL (0-1.0); Monocytes % (A) 6 %; Neutrophils # (A) 4.3 k/uL (1.3-7.7); Neutrophils % (A) 54 %; Platelet Count 245 k/uL (150-450); RBC 4.33 m/uL (3.80-5.40); RDW 13.8 % (11.5-15.5); WBC 7.9 k/uL (3.8-10.6)
[2021-11-23 09:24] LABS: African American GFR (CKD) >90 (>60 ml/min/1.73 sqM); Anion Gap 5 mmol/L; Blood Urea Nitrogen 16 mg/dL (7-17); Calcium 8.7 mg/dL (8.4-10.2); Carbon Dioxide 26 mmol/L (22-30); Chloride 108 mmol/L (98-107); Glucose 84 mg/dL (74-99); Magnesium 1.9 mg/dL (1.6-2.3); Non-African American GFR(CKD) 79 (>60 ml/min/1.73 sqM); Potassium 4.5 mmol/L (3.5-5.1); Sodium 139 mmol/L (137-145)
[2021-11-23] MEDS: APIXABAN 5 MG TAB PO SCH (10:09)
[2021-11-23] MEDS: VIT A,C & E-LUTEIN-MINERALS 1 EACH TAB PO SCH (10:10)
--- NOTE | 2021-11-23 10:53 | MR ---
EXAMINATION TYPE: MR brain wo con DATE OF EXAM: 11/23/2021 COMPARISON: CT brain 11/22/2021 HISTORY: Stroke rule out. CONTRAST: Performed utilizing 0 mL intravenous Gadavist gadolinium contrast. TECHNIQUE: Multiplanar, multiecho imaging on a 3.0 Josephine magnet is performed through the brain. Stud y is performed within 24 hours of arrival to the hospital. The craniovertebral junction is normal. The pituitary is normal. Diffusion-weighted imaging is performed. No abnormal hyperintensity is present to suggest an acute i ntracranial infarct or acute ischemic change. There is fairly extensive patchy to confluent periventricular deep white matter hyperintensities on T 2 and inversion recovery weighted sequences. Microvascular ischemic change is favored within the diff erential. An old lacunar infarct within the left banuelos radiata could be considered. No suspicious ch adam suggestive acute intracranial infarct is evident. Ventricles and sulci are prominent for the patient age. IMPRESSIONS: 1. Atrophy with chronic appearing ischemic type confluent white matter changes.
[2021-11-23 12:17] LABS: Chol/HDL Ratio 4.81 Ratio; LDL Cholesterol,Calculated 101.8 mg/dL (0.0-131.0)
[2021-11-23 15:33] VITALS: BP 138/74; PULSE 54
--- NOTE | 2021-11-23 15:56 | P.DS ---
Providers Date of admission: 11/22/21 14:07 Expected date of discharge: 11/23/21 Attending physician: aMrcela Vidales MD Consults: 11/22/21 14:08 Consult Physician Urgent Consulting Provider: Amelia Horowitz Consult Reason/Comments: cva Do you want consulting provider notified?: Yes Primary care physician: Vangie Jimenez MD Hospital Course: Right Leg Weakness HTN HLD Hypothyroidism Paroxysmal Atrial Fibrillation 86 year old woman with history of HTN, HLD, Hypothyroidism, Paroxysmal Atrial Fibrillation who presented with right leg weakness. In the ER, she is afebrile, 116/44, HR 58, 93% on room air. CBC is unremarkable, chemistries, LFTs are unremarkable. Coags show mildly elevated PT to 12.2, INR is 1.1. Initial troponin is negative. Brain CT was negative for bleed. CXR is clear. EKG shows NSR without evidence of ischemia. CT Angiography of H/N shows mild right ICA stenosis, otherwise clear. MRI did not show stroke. Echo showed good EF. Pt was discharged with routine PCP f/u. Gen: awake, alert HEENT: normocephalic, atraumatic, good hearing acuity, moist mucous membranes Resp: good air exchange, breathing comfortably with no accessory muscle use CVS: good distal perfusion x 4, GI: soft, NTTP, ND : no SPT, no CVAT, fisher catheter not present MSK: no pitting edema, no clubbing Neuro: 5 out of 5 motor strength throughout except for the right lower extremity which is 4+ to 5, sensation to fine and light touch are intact throughout, cranial nerves II through XII are intact Psych: cooperative, euthymic mood Patient Condition at Discharge: Good Plan - Discharge Summary New Discharge Prescriptions: New Aspirin 81 mg PO DAILY #30 tab Continue Cholecalciferol [Vitamin D3 (25 Mcg = 1000 Iu)] 25 mcg PO DAILY Vit C/E/Zn/Coppr/Lutein/Zeaxan [Preservision Areds 2 Softgel] 1 cap PO BID Metoprolol Succinate (ER) [Toprol XL] 12.5 mg PO DAILY Levothyroxine Sodium [Synthroid] 137 mcg PO DAILY Docusate [Colace] 100 mg PO DAILY PRN PRN Reason: Constipation Raloxifene HCl 60 mg PO HS Atorvastatin [Lipitor] 20 mg PO HS Apixaban [Eliquis] 5 mg PO BID Discharge Medication List Apixaban [Eliquis] 5 mg PO BID 06/21/21 [History] Atorvastatin [Lipitor] 20 mg PO HS 06/21/21 [History] Cholecalciferol [Vitamin D3 (25 Mcg = 1000 Iu)] 25 mcg PO DAILY 06/21/21 [History] Levothyroxine Sodium [Synthroid] 137 mcg PO DAILY 06/21/21 [History] Metoprolol Succinate (ER) [Toprol XL] 12.5 mg PO DAILY 06/21/21 [History] Raloxifene HCl 60 mg PO HS 06/21/21 [History] Vit C/E/Zn/Coppr/Lutein/Zeaxan [Preservision Areds 2 Softgel] 1 cap PO BID 06/21/21 [History] Docusate [Colace] 100 mg PO DAILY PRN 11/22/21 [History] Aspirin 81 mg PO DAILY #30 tab 11/23/21 [Rx] Follow up Appointment(s)/Referral(s): Vangie Jimenez MD [Primary Care Provider] - 1-2 days Patient Instructions/Handouts: Ischemic Stroke (DC) Discharge Disposition: HOME SELF-CARE
--- NOTE | 2021-11-23 16:42 | P.CNNES ---
History of Present Illness Consult date: 11/23/21 Requesting physician: Rj Schaffer Reason for Consult: CVA History of Present Illness: Patient is a 86-year-old female was brought to the hospital by ambulance yesterday at 12:43 PM for a near syncopal spell. Patient's daughters were present at the time of interview. They mentioned that patient was going to [place] to have dinner with her friend. She was going upstairs, when she became very weak, felt will pass out. She was placed in a chair. Patient denies loss of consciousness although it was reported that she was not responding. Kept on saying "I'm weak". Patient does have a cane and a walker, but doesn't use any of the devices. Patient did not bite her tongue, or loss control of urine. No convulsive activity was noted. Patient denies any focal symptoms like numbness tingling focal weakness, double vision, loss of vision or facial droop or slurred speech. As per EMS flow sheet, it was mentioned that patient while walking into lunch with her friend, suddenly stopped walking and became very weak and pale in color. Friends asked if she was okay, and she would not respond or follow commands to sit down for approximately 2 minutes. When EMS arrived, patient was seated but very pale and slightly diaphoretic. She denied any pain or discomfort or dyspnea. Her blood glucose was 1 45 mg/dL. Vitals were normal. EKG revealed normal sinus rhythm. Her blood pressure at the scene was 148/78, pulse rate 65, respiration 12, saturation 93%. Vital signs on arrival blood pressure 116/44 pulse rate 58 temperature 97.0. Blood tests shows normal CBC, PT/PTT, normal CMP. Troponin negative. Last hemoglobin A1c 5.5 on 06/18/2021. Her cholesterol 193, LDL 104 and HDL 37 on 06/18/2021. CT head showed no acute intracranial hemorrhage or midline shift. 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 No significant change from recent CT. I personally review CT of the head, and agree with the findings. There is evidence of a probable old encephalomalacia in the left anterior limb of internal capsule. CTA of head and neck revealed mild right ICA stenosis. Chest x-ray revealed chronic changes and low lung volumes without new suspicious acute pulmonary process. EKG shows sinus bradycardia with heart rate in 52. Patient had a carotid Doppler on 08/05/2021 revealed no hemodynamically significant stenosis of the ICA on either side. Antegrade flow in both vertebral arteries. Patient was evaluated in the ED by ED staff. Last known well was 12:30 PM. Patient's NIH stroke scale was 1. ED staff discussed case with stroke neurologist Dr. Shane, and patient was not considered a candidate for TPA because of low NIH stroke scale. Patient's daughters further mentioned that in the last 1 year she had about 3 syncopal spells. Around 3 months ago she passed out in shower. She was placed in a chair, then passed out again. She was noted to have low heart rate, high BP. Her dose of metoprolol was decreased from 50 down to 25 mg a day. She had another syncopal spell in the bathroom about one-year ago. Patient's daughters have observed that she sleeps a lot, sometimes up to 16-18 hours per day. She does have mild depression. Patient's , who is 89 years old is currently in hospice. She does have history of recurrent UTI in the last 6-9 months. Home medications include vitamin D, metoprolol, levothyroxine, raloxifene 60 mg at bedtime, Lipitor 20 mg, Eliquis 5 mg twice a day and Colace. Review of Systems All 14 points of review of system reviewed, and unremarkable except as mentioned in HPI. Patient does have borderline diabetes per family. Past Medical History Past Medical History: Atrial Fibrillation, Coronary Artery Disease (CAD), Hypertension, Thyroid Disorder History of Any Multi-Drug Resistant Organisms: None Reported Past Surgical History: Joint Replacement Additional Past Surgical History / Comment(s): bilateral Knee replacement Past Anesthesia/Blood Transfusion Reactions: No Reported Reaction Past Psychological History: No Psychological Hx Reported Smoking Status: Former smoker Past Alcohol Use History: Daily Past Drug Use History: None Reported - Past Family History Father Family Medical History: Coronary Artery Disease (CAD) Medications and Allergies Home Medications Medication Instructions Recorded Confirmed Type Apixaban [Eliquis] 5 mg PO BID 06/21/21 11/22/21 History Atorvastatin [Lipitor] 20 mg PO HS 06/21/21 11/22/21 History Cholecalciferol [Vitamin D3 (25 25 mcg PO DAILY 06/21/21 11/22/21 History Mcg = 1000 Iu)] Levothyroxine Sodium [Synthroid] 137 mcg PO DAILY 06/21/21 11/22/21 History Metoprolol Succinate (ER) [Toprol 12.5 mg PO DAILY 06/21/21 11/22/21 History XL] Raloxifene HCl 60 mg PO HS 06/21/21 11/22/21 History Vit C/E/Zn/Coppr/Lutein/Zeaxan 1 cap PO BID 06/21/21 11/22/21 History [Preservision Areds 2 Softgel] Docusate [Colace] 100 mg PO DAILY PRN 11/22/21 11/22/21 History Aspirin 81 mg PO DAILY #30 tab 11/23/21 Rx Allergies Allergy/AdvReac Type Severity Reaction Status Date / Time No Known Allergies Allergy Verified 11/22/21 14:13 Physical Examination - Vital Signs Vital Signs: Vital Signs Temp Pulse Pulse Resp BP BP Pulse Ox 11/23/21 04:00 97.5 F L 58 L 18 179/83 95 11/23/21 02:00 58 L 18 11/22/21 21:54 97.8 F 58 L 18 157/69 93 L 11/22/21 20:33 59 L 18 161/71 11/22/21 18:21 56 L 16 152/57 98 11/22/21 14:39 54 L 18 133/63 97 11/22/21 12:48 97.0 F L 58 L 18 116/44 93 L Intake and Output 11/22/21 11/23/21 11/23/21 22:59 06:59 14:59 Intake Total 540 Output Total 200 Balance 340 Intake: Oral 540 Output: Urine 200 Other: Voiding Method Toilet # Voids 3 Weight 77.111 kg 80 kg Patient is an elderly female, in no acute distress. Patient is alert awake oriented to time place and person. Speech and language functions are normal. No aphasia or dysarthria. Attention, concentration and fund of knowledge is adequate. On cranial examination, pupils are equal, round and reacting to light, visual bullock are full on confrontation, extraocular muscles are intact with no nystagmus. Face is symmetric, tongue protrudes to the midline. Palatal elevation and sensation normal, hearing and shoulder shrug normal, facial sensation normal. Shoulder shrug normal. On muscle strength testing, there is no pronator drift and the strength is normal in arms and legs distally and proximally. Deep tendon reflexes are 1+, symmetric and plantars downgoing. Sensory to touch is equal with no neglect. Cerebellar function showed no ataxia for [id number] testing. No dysdiadochokinesia. Tone and bulk of muscles normal. Gait deferred. On general examination, there is no carotid bruit or murmur, S1-S2 audible. Abdomen is soft nontender. No organomegaly, bowel sounds present. Chest is clear. Peripheral pulses are present. No edema. Results - Laboratory Findings CBC and BMP: 11/23/21 08:31 11/23/21 08:31 Abnormal Lab Findings: Abnormal Labs 11/22/21 11/22/21 11/22/21 14:10 14:10 14:10 Hct 46.8 H MCHC 30.9 L PT 12.2 H Glucose 102 H Total Protein 6.1 L Assessment and Plan Assessment: * Near syncopal spell. Patient was generalized weak, with no focal weakness. Doubt stroke/TIA. * CAD * Hypertension * History of atrial fibrillation, on anticoagulation. Plan: * CTA of head and neck showed no significant stenosis within the carotid arteries within the neck all within the intracerebral arterial circulation. There is mild focal stenosis of the origin of the right ICA. * 2-D echo revealed normal left ventricular dimension and systolic function. Moderate mitral regurgitation. EF is 55-60%. Normal left atrial size. * Orthostatics were checked today. Supine blood pressure 138/74, pulse rate 54. Sitting blood pressure 121/69, pulse rate 53. On standing up, blood pressure 150/78, pulse rate 71. Orthostatics appears to have slightly tachycardic response on standing, may suggest ?POTS. May consider tilt table test as an outpatient. * Suggest follow-up with cardiology for a 30 days event monitor or loop recorder placement for further evaluation of arrhythmia. * MRI brain revealed no acute process. Atrophy and chronic appearing ischemic type confluent white matter changes. I personally reviewed MRI agree with the findings. * Lipase. Cholesterol 174, LDL 101, HDL 36 and triglycerides were 80. May increase Lipitor to 40 mg. * Neurologically clear for discharge.
== END 2021-11-23 16:26 | disposition home or self-care (01) | DRG 948 ==
LOC: EC 12:43 → 3SCARD 14:07
PROVIDERS: ADMIT Internal Medicine; ATTEND Internal Medicine
DX: R53.1 Weakness (principal); Z87.891 Personal history of nicotine dependence; R55 Syncope and collapse; I25.10 Atherosclerotic heart disease of native coronary artery without angina pectoris; I10 Essential (primary) hypertension; B96.20 Unspecified Escherichia coli [E. coli] as the cause of diseases classified elsewhere; E03.9 Hypothyroidism, unspecified; E78.5 Hyperlipidemia, unspecified; F32.A Depression, unspecified; I48.0 Paroxysmal atrial fibrillation; I08.3 Combined rheumatic disorders of mitral, aortic and tricuspid valves; I25.2 Old myocardial infarction; I37.1 Nonrheumatic pulmonary valve insufficiency; G31.89 Other specified degenerative diseases of nervous system; G93.89 Other specified disorders of brain; R00.0 Tachycardia, unspecified; I65.21 Occlusion and stenosis of right carotid artery; R79.1 Abnormal coagulation profile; Z79.01 Long term (current) use of anticoagulants; Z79.82 Long term (current) use of aspirin; Z79.890 Hormone replacement therapy; Z79.899 Other long term (current) drug therapy; Z82.49 Family history of ischemic heart disease and other diseases of the circulatory system; Z87.440 Personal history of urinary (tract) infections; Z96.653 Presence of artificial knee joint, bilateral
CPT/HCPCS: 36415; 70450; 70496; 70498; 70551; 71046; 80048; 80053; 80061; 83735; 84484; 85025; 85610; 85730; 87077; 87086; 87186; 93005; 93306; 99285

== ENCOUNTER → 2022-01-10 | Outpatient (CLI) | payer MEDICARE ==
--- NOTE | 2022-01-10 15:04 | BD ---
EXAMINATION TYPE: Axial Bone Density DATE OF EXAM: 01/10/2022 COMPARISON: DEXA bone scan July 19, 2019 CLINICAL HISTORY: 86 years year old Female. ICD-10 CODE: OSTEOPOROSIS M81.0 Height: 64 Weight: 180 FRAX RISK QUESTIONS: Alcohol (3 or more units per day): no Family History (Parent hip fracture): no Glucocorticoids (More than 3mos): no (Ex: prednisone, prednisolone, methylprednisolone, dexamethasone, and hydrocortisone). History of Fracture in Adulthood: no Secondary Osteoporosis: 1. Type 1 Diabetes: no 2. Hyperthyroidism: no 3. Menopause before 45: no 4. Malnutrition: no 5. Chronic liver disease: no Rheumatoid Arthritis: no Current Tobacco Use: no RISK FACTORS HISTORY OF: Surgery to Spine/Hip(right/left)/Wrist (right/left): no Family History of Osteoporosis: no Diet low in dairy products/other sources of calcium: no Postmenopausal woman: yes Lost more than 2 inches in height since high school: no MEDICATIONS: Thyroid Medications: thyroid How Lon years EXAM MEASUREMENTS: Bone mineral densitometry was performed using the L[employer]Idealist System. Bone mineral density as measured about the Lumbar spine is: ----- L1-L4(G/cm2): 0.982 T Score Values are as follows: ----- L1: -2.2 ----- L2: -1.2 ----- L3: -1.0 ----- L4: -2.2 ----- L1-L4: -1.6 Bone mineral density : unavailable Bone mineral density about the R hip (g/cm2): 0.647 Bone mineral density about the L hip (g/cm2): 0.689 T Score values are as follows: -----R Neck: -2.8 -----L Neck: -2.5 -----R Total: -2.8 -----L Total: -2.5 Bone mineral density unavailable FRAX%s: The graph provided illustrates a 18.3% chance for a major osteoporotic fx and a 7.0% chance f or the hips probability for fx in 10 years time. IMPRESSION: Osteoporosis (T Score less than -2.5) remains present. There is increased fracture risk and therapy is usually indicated based on age. Re-Screen 1-2 years. NOTE: T-SCORE=SD OF THE YOUNG ADULT MEAN.
== END | disposition home or self-care (01) ==
LOC: RADBDWWP 11:56
PROVIDERS: ATTEND Internal Medicine
DX: M81.0 Age-related osteoporosis without current pathological fracture (principal)
CPT/HCPCS: 77080

== ENCOUNTER 2022-04-19 11:07 | Observation (INO) | payer MEDICARE ==
[2022-04-19] MEDS ORDERED: SODIUM CHLORIDE 0.9% 1,000 ML IV STA (11:16)
[2022-04-19 11:33] LABS: Basophils # (A) 0.1 k/uL (0-0.2); Basophils % (A) 1 %; Eosinophils # (A) 0.1 k/uL (0-0.7); Eosinophils % (A) 1 %; HCT 45.6 % (34.0-46.0); HGB 15.1 gm/dL (11.4-16.0); Lymphocytes # (A) 2.2 k/uL (1.0-4.8); Lymphocytes % (A) 27 %; MCHC 33.1 g/dL (31.0-37.0); MCV 93.7 fL (80.0-100.0); Mean Platelet Volume 8.9; Monocytes # (A) 0.8 k/uL (0-1.0); Monocytes % (A) 10 %; Neutrophils # (A) 4.7 k/uL (1.3-7.7); Neutrophils % (A) 59 %; Platelet Count 253 k/uL (150-450); RBC 4.87 m/uL (3.80-5.40); RDW 13.1 % (11.5-15.5); WBC 8.1 k/uL (3.8-10.6)
--- NOTE | 2022-04-19 11:33 | ED ---
General Adult HPI - General Chief complaint: Neuro Symptoms/Deficit Stated complaint: Rt sided weakness Time Seen by Provider: 04/19/22 11:20 Source: patient, RN notes reviewed, old records reviewed Mode of arrival: EMS Limitations: no limitations - History of Present Illness Initial comments: This is an 87-year-old female who presents emergency Department and the history comes from EMS. Patient was in the shower felt fine got out became weak and aparna ntually passed out. When EMS arrived they thought the patient weakness and leaning to the right. Patient currently has no weakness and no complaints at this time. Patient states she can't remember having even taken a shower this morning. Patient denies any fever chills. Patient denies any chest pain difficulty breathing shortest breath. Patient denies any lightheadedness or dizziness. Patient denies any abdominal pain patient denies nausea vomiting or diarrhea recently - Related Data Home Medications Medication Instructions Recorded Confirmed Apixaban [Eliquis] 5 mg PO BID 06/21/21 04/19/22 Atorvastatin [Lipitor] 20 mg PO HS 06/21/21 04/19/22 Cholecalciferol [Vitamin D3 (25 25 mcg PO DAILY 06/21/21 04/19/22 Mcg = 1000 Iu)] Levothyroxine Sodium [Synthroid] 137 mcg PO DAILY 06/21/21 04/19/22 Metoprolol Succinate (ER) [Toprol 12.5 mg PO DAILY 06/21/21 04/19/22 XL] Raloxifene HCl 60 mg PO HS 06/21/21 04/19/22 Vit C/E/Zn/Coppr/Lutein/Zeaxan 2 cap PO DAILY 06/21/21 04/19/22 [Preservision Areds 2 Softgel] Docusate [Colace] 100 mg PO DAILY 11/22/21 04/19/22 Previous Rx's Medication Instructions Recorded Aspirin 81 mg PO DAILY #30 tab 11/23/21 Allergies Allergy/AdvReac Type Severity Reaction Status Date / Time No Known Allergies Allergy Verified 04/19/22 11:24 Review of Systems ROS Statement: Those systems with pertinent positive or pertinent negative responses have been documented in the HPI. ROS Other: All systems not noted in ROS Statement are negative. Past Medical History Past Medical History: Atrial Fibrillation, Coronary Artery Disease (CAD), Hypertension, Thyroid Disorder History of Any Multi-Drug Resistant Organisms: None Reported Past Surgical History: Joint Replacement Additional Past Surgical History / Comment(s): bilateral Knee replacement Past Anesthesia/Blood Transfusion Reactions: No Reported Reaction Past Psychological History: No Psychological Hx Reported Smoking Status: Former smoker Past Alcohol Use History: Daily Past Drug Use History: None Reported - Past Family History Father Family Medical History: Coronary Artery Disease (CAD) General Exam - General Exam Comments Initial Comments: GENERAL: Patient is well-developed and well-nourished. Patient is nontoxic and well-hydrated and is in no acute distress. ENT: Neck is soft and supple. No significant lymphadenopathy is noted. Oropharynx is clear. Moist mucous membranes. Neck has full range of motion without eliciting any pain. EYES: The sclera were anicteric and conjunctiva were pink and moist. Extraocular move ments were intact and pupils were equal round and reactive to light. Eyelids were unremarkable. PULMONARY: Unlabored respirations. Good breath sounds bilaterally. No audible rales rhonchi or wheezing was noted. CARDIOVASCULAR: There is a regular rate and rhythm without any murmurs gallops or rubs. ABDOMEN: Soft and nontender with normal bowel sounds. SKIN: Skin is clear with no lesions or rashes and otherwise unremarkable. NEUROLOGIC: Patient is alert and oriented x3. Cranial nerves II through XII are grossly intact. Motor and sensory are also intact. Normal speech, volume and content. Symmetrical smile. NIH is 0 MUSCULOSKELETAL: Normal extremities with adequate strength and full range of motion. No lower extremity swelling or edema. No calf tenderness. LYMPHATICS: No significant lymphadenopathy is noted PSYCHIATRIC: Normal psychiatric evaluation. Limitations: no limitations Course Vital Signs 04/19/22 04/19/22 04/19/22 11:15 11:49 13:18 Temperature 98.3 F Pulse Rate 60 56 L 56 L Respiratory 18 18 18 Rate Blood Pressure 128/88 125/74 162/79 O2 Sat by Pulse 89 L 95 97 Oximetry Medical Decision Making - Medical Decision Making EKG shows sinus bradycardia 55 bpm DE interval 245 QRS is 90 QT intervals 45 QTC is 394 per patient's EKG shows no ST segment elevation or depression. Chest x-ray shows no acute abnormality. Patient had a urinary tract infection started the patient on Rocephin. Patient also had COVID 19. I spoke with sounds physician's he agreed to admit the patient admitted the patient wrote admitting orders. - Lab Data Result diagrams: 04/19/22 11:26 04/19/22 11:26 Lab Results 04/19/22 04/19/22 04/19/22 Range/Units 11:26 11:26 11:26 WBC 8.1 (3.8-10.6) k/uL RBC 4.87 (3.80-5.40) m/uL Hgb 15.1 (11.4-16.0) gm/dL Hct 45.6 (34.0-46.0) % MCV 93.7 (80.0-100.0) fL MCH 31.0 (25.0-35.0) pg MCHC 33.1 (31.0-37.0) g/dL RDW 13.1 (11.5-15.5) % Plt Count 253 (150-450) k/uL MPV 8.9 Neutrophils % 59 % Lymphocytes % 27 % Monocytes % 10 % Eosinophils % 1 % Basophils % 1 % Neutrophils # 4.7 (1.3-7.7) k/uL Lymphocytes # 2.2 (1.0-4.8) k/uL Monocytes # 0.8 (0-1.0) k/uL Eosinophils # 0.1 (0-0.7) k/uL Basophils # 0.1 (0-0.2) k/uL Sodium 139 (137-145) mmol/L Potassium 3.9 (3.5-5.1) mmol/L Chloride 104 (98-107) mmol/L Carbon Dioxide 23 (22-30) mmol/L Anion Gap 12 mmol/L BUN 18 H (7-17) mg/dL Creatinine 0.80 (0.52-1.04) mg/dL Est GFR (CKD-EPI)AfAm 76 (>60 ml/min/1.73 sqM) Est GFR (CKD-EPI)NonAf 66 (>60 ml/min/1.73 sqM) Glucose 108 H (74-99) mg/dL Plasma Lactic Acid Serge (0.7-2.0) mmol/L Calcium 8.8 (8.4-10.2) mg/dL Total Bilirubin 0.7 (0.2-1.3) mg/dL AST 52 H (14-36) U/L ALT 28 (4-34) U/L Alkaline Phosphatase 90 (38-126) U/L Troponin I 0.013 (0.000-0.034) ng/mL Total Protein 6.3 (6.3-8.2) g/dL Albumin 4.0 (3.5-5.0) g/dL Urine Color Urine Appearance (Clear) Urine pH (5.0-8.0) Ur Specific [place] (1.001-1.035) Urine Protein (Negative) Urine Glucose (UA) (Negative) Urine Ketones (Negative) Urine Blood (Negative) Urine Nitrite (Negative) Urine Bilirubin (Negative) Urine Urobilinogen (<2.0) mg/dL Ur Leukocyte Esterase (Negative) Urine RBC (0-5) /hpf Urine WBC (0-5) /hpf Urine WBC Clumps (None) /hpf Ur Squamous Epith Cells (0-4) /hpf Amorphous Sediment (None) /hpf Urine Bacteria (None) /hpf Hyaline Casts (0-2) /lpf Urine Mucus (None) /hpf Coronavirus (PCR) (Not Detectd) 04/19/22 04/19/22 04/19/22 Range/Units 11:37 11:49 13:16 WBC (3.8-10.6) k/uL RBC (3.80-5.40) m/uL Hgb (11.4-16.0) gm/dL Hct (34.0-46.0) % MCV (80.0-100.0) fL MCH (25.0-35.0) pg MCHC (31.0-37.0) g/dL RDW (11.5-15.5) % Plt Count (150-450) k/uL MPV Neutrophils % % Lymphocytes % % Monocytes % % Eosinophils % % Basophils % % Neutrophils # (1.3-7.7) k/uL Lymphocytes # (1.0-4.8) k/uL Monocytes # (0-1.0) k/uL Eosinophils # (0-0.7) k/uL Basophils # (0-0.2) k/uL Sodium (137-145) mmol/L Potassium (3.5-5.1) mmol/L Chloride (98-107) mmol/L Carbon Dioxide (22-30) mmol/L Anion Gap mmol/L BUN (7-17) mg/dL Creatinine (0.52-1.04) mg/dL Est GFR (CKD-EPI)AfAm (>60 ml/min/1.73 sqM) Est GFR (CKD-EPI)NonAf (>60 ml/min/1.73 sqM) Glucose (74-99) mg/dL Plasma Lactic Acid Serge 1.4 (0.7-2.0) mmol/L Calcium (8.4-10.2) mg/dL Total Bilirubin (0.2-1.3) mg/dL AST (14-36) U/L ALT (4-34) U/L Alkaline Phosphatase (38-126) U/L Troponin I (0.000-0.034) ng/mL Total Protein (6.3-8.2) g/dL Albumin (3.5-5.0) g/dL Urine Color Yellow Urine Appearance Turbid H (Clear) Urine pH 5.5 (5.0-8.0) Ur Specific [place] 1.027 (1.001-1.035) Urine Protein 2+ H (Negative) Urine Glucose (UA) Negative (Negative) Urine Ketones 1+ H (Negative) Urine Blood Negative (Negative) Urine Nitrite Negative (Negative) Urine Bilirubin Negative (Negative) Urine Urobilinogen 2.0 (<2.0) mg/dL Ur Leukocyte Esterase Large H (Negative) Urine RBC 37 H (0-5) /hpf Urine WBC 174 H (0-5) /hpf Urine WBC Clumps Occasional H (None) /hpf Ur Squamous Epith Cells 20 H (0-4) /hpf Amorphous Sediment Occasional H (None) /hpf Urine Bacteria Moderate H (None) /hpf Hyaline Casts 6 H (0-2) /lpf Urine Mucus Many H (None) /hpf Coronavirus (PCR) Detected A (Not Detectd) Disposition Clinical Impression: COVID-19, Syncope, Urinary tract infection Disposition: ADMITTED IP TO THIS HOSP Referrals: Vangie Jimenez MD [REFERRING] - 1-2 days Time of Disposition: 14:03
[2022-04-19 12:00] LABS: Calcium 8.8 mg/dL (8.4-10.2); Potassium 3.9 mmol/L (3.5-5.1); Total Bilirubin 0.7 mg/dL (0.2-1.3); Total Protein 6.3 g/dL (6.3-8.2)
[2022-04-19 12:27] LABS: Amorphous Sediment,Urine Occasional /hpf; Appearance,Urine Turbid (Clear); Bacteria,Urine Moderate /hpf; Bilirubin,Urine Negative (Negative); Blood,Urine Negative (Negative); Color,Urine Yellow; Glucose,Urine (UA) Negative (Negative); Hyaline Casts,Urine 6 /lpf (0-2); Ketones,Urine 1+ (Negative); Leukocyte Esterase,Urine Large (Negative); Mucus,Urine Many /hpf; Nitrite,Urine Negative (Negative); PH, Urine 5.5 (5.0-8.0); Protein,Urine 2+ (Negative); RBC,Urine 37 /hpf (0-5); Specific Gravity,Urine 1.027 (1.001-1.035); Squamous Epithelial Cell,Urine 20 /hpf (0-4); WBC,Urine 174 /hpf (0-5)
--- NOTE | 2022-04-19 12:30 | CT ---
EXAMINATION TYPE: CT brain wo con DATE OF EXAM: 04/19/2022 HISTORY: stroke like symptoms. Acute onset neuro deficit. CT DLP: 1115.4 mGycm. Automated Exposure Control for Dose Reduction was Utilized. TECHNIQUE: CT scan of the head is performed without contrast. COMPARISON: CT brain November 22, 2021 FINDINGS: There is no acute intracranial hemorrhage or midline shift identified. There is mild diff use ventricular and sulcal prominence consistent with diffuse age-related cerebral atrophy. There is moderate to advanced low-attenuation in the periventricular white matter consistent with chronic sma ll vessel ischemic change. The globes are intact and the visualized sinuses are clear. IMPRESSION: No acute intracranial hemorrhage or midline shift. There is mild diffuse cerebral atrop hy and moderately advanced chronic small vessel ischemic change redemonstrated. No significant crespo e from most recent prior CT.
--- NOTE | 2022-04-19 12:31 | XR ---
EXAMINATION TYPE: XR chest 2V DATE OF EXAM: 04/19/2022 COMPARISON: Chest x-ray November 22, 2021 HISTORY: Altered mental status and weakness. TECHNIQUE: Frontal and lateral views of the chest are obtained. FINDINGS: Low lung volumes and mild chronic parenchymal change bilaterally redemonstrated with left b asilar linear scarring and/or atelectasis again seen . There is no suspicious new focal air space opa city, pleural effusion, or pneumothorax seen. The cardiac silhouette size is stable and upper limits of normal. The osseous structures remain demineralized. IMPRESSION: Chronic changes without new acute pulmonary process.
[2022-04-19] MEDS ORDERED: cefTRIAXone IN SWFI 1,000 MG/10 ML SYRINGE IVP STA (12:42)
[2022-04-19] MEDS ORDERED: DOCUSATE 100 MG CAP PO PRN (13:18)
--- NOTE | 2022-04-19 13:25 | P.HPIM ---
History of Present Illness H&P Date: 04/19/22 Chief Complaint: syncope Patient is a 87-year-old female with a past medical history of atrial fibrillation, hypertension, hyperlipidemia, hypothyroidism who presents to the ED with an episode of syncope. Patient herself states that she does not know what happened. History was obtained from the daughter who is at bedside and was also present when the patient passed out. Daughter states that patient took a shower independently and when she came out of the shower she sat down and passed out. Daughter denied any tonic-clonic like activity. Patient states that prior to this episode she did not have any chest pain and lightheadedness. Patient states that for the past 2 days she has not been feeling well. She states that she has a cough. She also reports dysuria. She also states that this morning she did not have her breakfast. Daughter states that for the past 2 days her mother has not been drinking well. In the ED patient was found to have a UTI and was also positive for COVID-19. Patient states that she has received due to booster shots. Chest x-ray is negative. Review of Systems 10 ROS reviewed and are negative except as noted in HPI Past Medical History Past Medical History: Atrial Fibrillation, Coronary Artery Disease (CAD), Hypertension, Thyroid Disorder History of Any Multi-Drug Resistant Organisms: None Reported Past Surgical History: Joint Replacement Additional Past Surgical History / Comment(s): bilateral Knee replacement Past Anesthesia/Blood Transfusion Reactions: No Reported Reaction Past Psychological History: No Psychological Hx Reported Smoking Status: Former smoker Past Alcohol Use History: Daily Past Drug Use History: None Reported - Past Family History Father Family Medical History: Coronary Artery Disease (CAD) Medications and Allergies Home Medications Medication Instructions Recorded Confirmed Type Apixaban [Eliquis] 5 mg PO BID 06/21/21 11/22/21 History Atorvastatin [Lipitor] 20 mg PO HS 06/21/21 11/22/21 History Cholecalciferol [Vitamin D3 (25 25 mcg PO DAILY 06/21/21 11/22/21 History Mcg = 1000 Iu)] Levothyroxine Sodium [Synthroid] 137 mcg PO DAILY 06/21/21 11/22/21 History Metoprolol Succinate (ER) [Toprol 12.5 mg PO DAILY 06/21/21 11/22/21 History XL] Raloxifene HCl 60 mg PO HS 06/21/21 11/22/21 History Vit C/E/Zn/Coppr/Lutein/Zeaxan 1 cap PO BID 06/21/21 11/22/21 History [Preservision Areds 2 Softgel] Docusate [Colace] 100 mg PO DAILY PRN 11/22/21 11/22/21 History Aspirin 81 mg PO DAILY #30 tab 11/23/21 Rx Allergies Allergy/AdvReac Type Severity Reaction Status Date / Time No Known Allergies Allergy Verified 04/19/22 11:24 Physical Exam Osteopathic Statement: *. No significant issues noted on an osteopathic structural exam other than those noted in the History and Physical/Consult. Vitals: Vital Signs Temp Pulse Resp BP Pulse Ox 04/19/22 13:18 56 L 18 162/79 97 04/19/22 11:49 56 L 18 125/74 95 04/19/22 11:15 98.3 F 60 18 128/88 89 L Intake and Output 04/18/22 04/19/22 04/19/22 22:59 06:59 14:59 Other: Weight 81.647 kg General: [Alert and oriented, well nourished, no acute distress]. Eye: [PERRL, EOMI, normal conjunctiva]. HENT: [Normocephalic, clear tympanic membranes, normal hearing, dry oral mucosa, no scleral icterus, no sinus tenderness]. Neck: [Supple, non-tender, no carotid bruits, no JVD, no lymphadenopathy]. Lungs: [Clear to auscultation and percussion, non-labored respiration]. Heart: [Normal rate, regular rhythm, no murmur, gallop or edema]. Abdomen: [Soft, non-tender, non-distended, normal bowel sounds, no masses]. Musculoskeletal: [Normal range of motion and strength, no tenderness or swelling]. Skin: [Skin is warm, dry and pink, no rashes or lesions]. Neurologic: [Awake, alert, and oriented X3, CN II-XII intact]. Psychiatric: [Cooperative, appropriate mood and affect]. Results CBC & Chem 7: 04/19/22 11:26 04/19/22 11:26 Labs: Abnormal Lab Results - Last 24 Hours (Table) 10/22/22 10/22/22 10/22/22 Range/Units 11:26 11:37 11:49 BUN 18 H (7-17) mg/dL Glucose 108 H (74-99) mg/dL AST 52 H (14-36) U/L Urine Appearance Turbid H (Clear) Urine Protein 2+ H (Negative) Urine Ketones 1+ H (Negative) Ur Leukocyte Esterase Large H (Negative) Urine RBC 37 H (0-5) /hpf Urine WBC 174 H (0-5) /hpf Urine WBC Clumps Occasional H (None) /hpf Ur Squamous Epith Cells 20 H (0-4) /hpf Amorphous Sediment Occasional H (None) /hpf Urine Bacteria Moderate H (None) /hpf Hyaline Casts 6 H (0-2) /lpf Urine Mucus Many H (None) /hpf Coronavirus (PCR) Detected A (Not Detectd) Assessment and Plan Assessment: Syncope likely due to dehydration Continue with fluids Generalized weakness secondary to UTI and COVID-19 Consult PT OT Urinary tract infection Continue IV Rocephin Follow up on blood culture and urine culture Patient does not meet sepsis criteria COVID-19 Patient satting well on room air so no need to treat Chest x-ray is negative Atrial fibrillation Resume Eliquis Hold metoprolol as heart rate is in the 50s and 60s Hyperlipidemia Continue with statin Hypothyroidism Continue his Synthroid Hypertension Hold the metoprolol due to low heart rate. We'll continue to monitor blood pressure and if elevated we'll start patient on low-dose lisinopril CODE STATUS: DNR/DNI DPOA: daughter DVT prophylaxis: Eliquis Discussed with: Patient, ER, rn Anticipated length of stay < than [address]: home A total of 75 minutes was spent on the care of this complex patient more than 50% of the time was spent in counseling and care coordination.
[2022-04-19] MEDS ORDERED: SODIUM CHLORIDE 0.9% 1,000 ML IV ONE (14:03)
[2022-04-19] MEDS: RALOXIFENE 60 MG TAB PO SCH (21:25)
[2022-04-19] MEDS: APIXABAN 5 MG TAB PO SCH (21:25)
[2022-04-19] MEDS: ATORVASTATIN 20 MG TAB PO SCH (21:25)
[2022-04-20] MEDS: LEVOTHYROXINE 137 MCG TAB PO SCH (07:32)
[2022-04-20] MEDS: ASPIRIN 81 MG PO SCH (09:26)
[2022-04-20] MEDS: APIXABAN 5 MG TAB PO SCH ×2 (09:26→20:01)
[2022-04-20] MEDS: CHOLECALCIFEROL 25 MCG (1000 IU) TABLET PO SCH (09:26)
--- NOTE | 2022-04-20 10:00 | P.PN ---
Subjective Progress Note Date: 04/20/22 Patient states that she is feeling much better today. She states that she is ready to go home. I started by the nurse that the family is looking forward to go to an extended living facility. PT OT consult is pending. Patient currently is denying any dysuria. 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 Psych - Calm and cooperative - Labs CBC & Chem 7: 04/19/22 11:26 04/19/22 11:26 Labs: Abnormal Lab Results - Last 24 Hours (Table) 04/19/22 04/19/22 04/19/22 Range/Units 11:26 11:37 11:49 BUN 18 H (7-17) mg/dL Glucose 108 H (74-99) mg/dL AST 52 H (14-36) U/L Urine Appearance Turbid H (Clear) Urine Protein 2+ H (Negative) Urine Ketones 1+ H (Negative) Ur Leukocyte Esterase Large H (Negative) Urine RBC 37 H (0-5) /hpf Urine WBC 174 H (0-5) /hpf Urine WBC Clumps Occasional H (None) /hpf Ur Squamous Epith Cells 20 H (0-4) /hpf Amorphous Sediment Occasional H (None) /hpf Urine Bacteria Moderate H (None) /hpf Hyaline Casts 6 H (0-2) /lpf Urine Mucus Many H (None) /hpf Coronavirus (PCR) Detected A (Not Detectd) Microbiology - Last 24 Hours (Table) 04/19/22 11:49 Urine Culture - Preliminary Urine,Voided Assessment and Plan Assessment: Syncope likely due to dehydration Continue with fluids Generalized weakness secondary to UTI and COVID-19 Consult PT OT Urinary tract infection Continue IV Rocephin Follow up on blood culture and urine culture Patient does not meet sepsis criteria COVID-19 Patient satting well on room air so no need to treat Chest x-ray is negative Atrial fibrillation Resume Eliquis Hold metoprolol as heart rate is in the 50s and 60s Hyperlipidemia Continue with statin Hypothyroidism Continue his Synthroid Hypertension Hold the metoprolol due to low heart rate. We'll continue to monitor blood pressure and if elevated we'll start patient on low-dose lisinopril CODE STATUS: DNR/DNI DPOA: daughter DVT prophylaxis: Eliquis Anticipated length of stay: Awaiting for urine culture PT OT consult Anticipated discharge place: home
[2022-04-20] MEDS: ATORVASTATIN 20 MG TAB PO SCH (20:01)
[2022-04-20] MEDS: RALOXIFENE 60 MG TAB PO SCH (20:01)
[2022-04-21] MEDS ORDERED: ACETAMINOPHEN TAB 325 MG TAB PO PRN (01:20)
[2022-04-21] MEDS: LEVOTHYROXINE 137 MCG TAB PO SCH (06:07)
[2022-04-21 08:24] VITALS: BP 183/83; PULSE 63; RESP 18; TEMP 97.7
[2022-04-21] MEDS: APIXABAN 5 MG TAB PO SCH (10:26)
[2022-04-21] MEDS: ASPIRIN 81 MG PO SCH (10:27)
[2022-04-21] MEDS: CHOLECALCIFEROL 25 MCG (1000 IU) TABLET PO SCH (10:27)
--- NOTE | 2022-04-21 13:27 | P.DS ---
Providers Date of admission: 04/19/22 14:05 Attending physician: Niels Sevilla MD Primary care physician: Dennis Carroll MD Hospital Course: Discharge Diagnosis: Syncope likely due to dehydration Generalized weakness secondary to UTI and COVID-19 Unit tract infection COVID-19 Atrial fibrillation Hyperlipidemia Hyperthyroidism Hypertension Hospital Course: Patient is a 87-year-old female with a past medical history of atrial fibrillation, hypertension, hyperlipidemia, hypothyroidism who presents to the ED with an episode of syncope. Patient herself states that she does not know what happened. History was obtained from the daughter who is at bedside and was also present when the patient passed out. Daughter states that patient took a shower independently and when she came out of the shower she sat down and passed out. Daughter denied any tonic-clonic like activity. Patient states that prior to this episode she did not have any chest pain and lightheadedness. Patient states that for the past 2 days she has not been feeling well. She states that she has a cough. She also reports dysuria. She also states that this morning she did not have her breakfast. Daughter states that for the past 2 days her mother has not been drinking well. In the ED patient was found to have a UTI and was also positive for COVID-19. Patient states that she has received due to booster shots. Chest x-ray is negative. Patient was given fluids. She was also started on IV Rocephin. Patient did not require any treatment for her COVID-19 since she was asymptomatic and satting well on room air. The following day patient was feeling much better. During hospitalization patient had a good appetite and was eating well. Patient was ready to go home. However family did not think she was safe to go home because she lives alone with her elderly . Patient seen by PT OT and was cleared to go home. Patient amenable to going home. 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 Daughter from out of state will be living with the patient. I discussed this with the son who is amenable to the plan. Patient will be discharged on Ceftin for 5 more days to complete antibiotic course. At the time of discharge patient denied any dysuria. Patient seen and examined at bedside.[] Vital signs reviewed and stable. General: [non toxic], [no distress], [appears at stated age] Derm: [warm], [dry] Head: [atraumatic], [normocephalic], [symmetric] Eyes: [EOMI], [no lid lag], [anicteric sclera] Mouth: [no lip lesion], [mucus membranes moist] Cardiovascular: [S1S2 reg], [no murmur], [positive posterior tibial pulse bilateral], Lungs: [CTA bilateral], [no rhonchi, no rales] , [no accessory muscle use] Abdominal: [soft], [ nontender to palpation], [no guarding], [no appreciable organomegaly] Ext: [no gross muscle atrophy], [no edema], [no contractures] Neuro: [ CN II-XI grossly intact], [no focal neuro deficits] Psych: [Alert], [oriented], [appropriate affect] A total of [33] minutes of time were spent preparing this complex discharge summary . Patient Condition at Discharge: Fair Plan - Discharge Summary New Discharge Prescriptions: New cefUROXime axetiL [Ceftin] 500 mg PO BID 5 Days #10 tab Continue Cholecalciferol [Vitamin D3 (25 Mcg = 1000 Iu)] 25 mcg PO DAILY Vit C/E/Zn/Coppr/Lutein/Zeaxan [Preservision Areds 2 Softgel] 2 cap PO DAILY Levothyroxine Sodium [Synthroid] 137 mcg PO DAILY Docusate [Colace] 100 mg PO DAILY Aspirin 81 mg PO DAILY #30 tab Raloxifene HCl 60 mg PO HS Atorvastatin [Lipitor] 20 mg PO HS Apixaban [Eliquis] 5 mg PO BID Discontinued Metoprolol Succinate (ER) [Toprol XL] 12.5 mg PO DAILY Discharge Medication List Apixaban [Eliquis] 5 mg PO BID 06/21/21 [History] Atorvastatin [Lipitor] 20 mg PO HS 06/21/21 [History] Cholecalciferol [Vitamin D3 (25 Mcg = 1000 Iu)] 25 mcg PO DAILY 06/21/21 [History] Levothyroxine Sodium [Synthroid] 137 mcg PO DAILY 06/21/21 [History] Raloxifene HCl 60 mg PO HS 06/21/21 [History] Vit C/E/Zn/Coppr/Lutein/Zeaxan [Preservision Areds 2 Softgel] 2 cap PO DAILY 06/21/21 [History] Docusate [Colace] 100 mg PO DAILY 11/22/21 [History] Aspirin 81 mg PO DAILY #30 tab 11/23/21 [Rx] cefUROXime axetiL [Ceftin] 500 mg PO BID 5 Days #10 tab 04/21/22 [Rx] Follow up Appointment(s)/Referral(s): Vangie Jimenez MD [REFERRING] - 1-2 days Discharge Disposition: HOME SELF-CARE
== END 2022-04-21 15:08 | disposition home or self-care (01) ==
LOC: EC 11:07 → 6NMEDSUR 14:05
PROVIDERS: ADMIT Internal Medicine; ATTEND Internal Medicine
DX: R55 Syncope and collapse (principal); N39.0 Urinary tract infection, site not specified; U07.1 COVID-19; I10 Essential (primary) hypertension; I25.10 Atherosclerotic heart disease of native coronary artery without angina pectoris; I48.91 Unspecified atrial fibrillation; E78.5 Hyperlipidemia, unspecified; E03.9 Hypothyroidism, unspecified; Z79.01 Long term (current) use of anticoagulants; Z79.899 Other long term (current) drug therapy; Z79.890 Hormone replacement therapy; Z79.82 Long term (current) use of aspirin; Z96.653 Presence of artificial knee joint, bilateral; Z87.891 Personal history of nicotine dependence; Z82.49 Family history of ischemic heart disease and other diseases of the circulatory system; Z66 Do not resuscitate
CPT/HCPCS: 96361 ×3; 96366 ×2; 96376; 96365; 99285; 36415; 93005; 97162; 97166; 80053; 83605; 84484; 85025; 81001; 87040; 87086; 87077; 87186; 87635; 71046; 70450; G0378 ×3; J0696 ×2

== ENCOUNTER 2023-04-26 10:04 | Observation (INO) | payer MEDICARE ==
[2023-04-26 10:21] LABS: Glucose,Whole Blood 105 mg/dL (70-110)
[2023-04-26] MEDS ORDERED: SODIUM CHLORIDE 0.9% 1,000 ML IV STA (10:30)
[2023-04-26 10:49] LABS: Basophils % (A) 1 %; Eosinophils # (A) 0.3 k/uL (0-0.7); Eosinophils % (A) 4 %; HCT 47.7 % (34.0-46.0); HGB 15.3 gm/dL (11.4-16.0); Lymphocytes # (A) 2.2 k/uL (1.0-4.8); Lymphocytes % (A) 27 %; MCH 30.7 pg (25.0-35.0); MCV 95.8 fL (80.0-100.0); Mean Platelet Volume 9.1; Monocytes # (A) 0.6 k/uL (0-1.0); Monocytes % (A) 7 %; Neutrophils # (A) 4.8 k/uL (1.3-7.7); Neutrophils % (A) 59 %; Platelet Count 227 k/uL (150-450); RBC 4.97 m/uL (3.80-5.40); RDW 13.7 % (11.5-15.5)
[2023-04-26 10:54] LABS: Appearance,Urine Clear (Clear); Bilirubin,Urine Negative (Negative); Blood,Urine Negative (Negative); Color,Urine Colorless; Glucose,Urine (UA) Negative (Negative); Ketones,Urine Negative (Negative); Leukocyte Esterase,Urine Negative (Negative); Nitrite,Urine Negative (Negative); PH, Urine 7.5 (5.0-8.0); Protein,Urine Trace (Negative); Specific Gravity,Urine 1.011 (1.001-1.035); Urobilinogen,Urine <2.0 mg/dL (<2.0)
[2023-04-26 11:03] LABS: INR 1.1 (<1.2); Partial Thromboplastin Time 23.2 sec (22.0-30.0); Prothrombin Time 11.7 sec (10.0-12.5)
[2023-04-26 11:14] LABS: ALT 18 U/L (4-34); AST 29 U/L (14-36); African American GFR (CKD) 88 (>60 ml/min/1.73 sqM); Albumin 4.1 g/dL (3.5-5.0); Alkaline Phosphatase 74 U/L (38-126); Anion Gap 13 mmol/L; Blood Urea Nitrogen 17 mg/dL (7-17); Calcium 9.5 mg/dL (8.4-10.2); Carbon Dioxide 23 mmol/L (22-30); Chloride 106 mmol/L (98-107); Glucose 106 mg/dL (74-99); Non-African American GFR(CKD) 76 (>60 ml/min/1.73 sqM); Potassium 4.4 mmol/L (3.5-5.1); Sodium 142 mmol/L (137-145); Total Bilirubin 0.7 mg/dL (0.2-1.3); Total Protein 6.8 g/dL (6.3-8.2)
--- NOTE | 2023-04-26 11:20 | ED ---
General Adult HPI - General Chief complaint: Syncope Stated complaint: Syncope Time Seen by Provider: 04/26/23 10:05 Source: patient, RN notes reviewed, old records reviewed Mode of arrival: ambulatory Limitations: no limitations - History of Present Illness Initial comments: Patient is an 88-year-old female who presents emergency Department after a syn copal episode. Patient presents from assisted living. At baseline patient is alert and oriented 2, to person and place. She is currently at her baseline. She has a history of atrial fibrillation on Eliquis. She states she was taking a shower this morning and was doing well when she went to sit on the bed. She states she felt a little off and lightheaded and extension and she was on the ground. Unknown if she significantly her head. Denies any obvious injuries at this time. Denies any episodes of chest pain or shortness of breath. Denies nausea or vomiting. Patient was seen here approximately one year ago for similar complaints. She had COVID-19 at that time. Presents for further evaluation at this time. Per half-way paperwork, patient is DO NOT RESUSCITATE.Patient apparently was in A. fib with RVR initially with EMS and converted to normal sinus rhythm with heart rates in the 60s. - Related Data Home Medications Medication Instructions Recorded Confirmed Apixaban [Eliquis] 5 mg PO BID 06/21/21 04/19/22 Atorvastatin [Lipitor] 20 mg PO HS 06/21/21 04/19/22 Cholecalciferol [Vitamin D3 (25 25 mcg PO DAILY 06/21/21 04/19/22 Mcg = 1000 Iu)] Levothyroxine Sodium [Synthroid] 137 mcg PO DAILY 06/21/21 04/19/22 Raloxifene HCl 60 mg PO HS 06/21/21 04/19/22 Vit C/E/Zn/Coppr/Lutein/Zeaxan 2 cap PO DAILY 06/21/21 04/19/22 [Preservision Areds 2 Softgel] Docusate [Colace] 100 mg PO DAILY 11/22/21 04/19/22 Previous Rx's Medication Instructions Recorded Aspirin 81 mg PO DAILY #30 tab 11/23/21 cefUROXime axetiL [Ceftin] 500 mg PO BID 5 Days #10 tab 04/21/22 Allergies Allergy/AdvReac Type Severity Reaction Status Date / Time No Known Allergies Allergy Verified 04/26/23 13:59 Review of Systems ROS Statement: Those systems with pertinent positive or pertinent negative responses have been documented in the HPI. Review of Systems: CONST: Denies fever EYES: Denies blurry vision ENT: Denies nasal congestion C/V: Denies Chest pain RESP: Denies shortness of breath GI: Denies abdominal pain : Denies dysuria SKIN: Denies rash. MSK: Denies joint pain. NEURO: Denies headache ROS Other: All systems not noted in ROS Statement are negative. Past Medical History Past Medical History: Atrial Fibrillation, Coronary Artery Disease (CAD), Hypertension, Thyroid Disorder History of Any Multi-Drug Resistant Organisms: None Reported Past Surgical History: Joint Replacement Additional Past Surgical History / Comment(s): bilateral Knee replacement Past Anesthesia/Blood Transfusion Reactions: No Reported Reaction Past Psychological History: No Psychological Hx Reported Smoking Status: Former smoker Past Alcohol Use History: Daily Past Drug Use History: None Reported - Past Family History Father Family Medical History: Coronary Artery Disease (CAD) General Exam - General Exam Comments Initial Comments: General: Appears in no acute distress. HEAD: Normal with no signs of head trauma. Negative harper sign. Negative raccoon eyes. EYES: PERRLA, EOMI, conjunctiva normal, no discharge. Pupils are 2 mm and equal bilaterally. ENT: Hearing grossly intact, normal oropharynx. RESPIRATORY: Clear breath sounds bilaterally. No wheezes, rales, or rhonchi. C/V: Regular rate and rhythm. S1 and S2 auscultated, no edema, peripheral pulses 2+ and intact throughout ABD: Abd is soft, nontender, nondistended EXT: Normal range of motion, no obvious deformity. Pelvis is stable. No midline cervical, thoracic, lumbar spine tenderness to palpation and no step- offs or deformities of the spine. No extremity tenderness to palpation. SKIN: No rashes or lesions observed on exposed skin. NEURO: Alert and oriented 2-3. Confused to time. This is baseline for the patient. No focal neurological deficits. Limitations: no limitations Course Vital Signs 04/26/23 04/26/23 04/26/23 10:17 10:38 11:00 Temperature 98.8 F Pulse Rate 56 L 58 L Pulse Rate [ 56 L Disposition Clerk ] Respiratory 18 16 Rate Blood Pressure 162/87 145/78 O2 Sat by Pulse 91 L 92 L Oximetry 04/26/23 04/26/23 12:00 13:00 Temperature Pulse Rate 51 L 60 Pulse Rate [ Disposition Clerk ] Respiratory 18 19 Rate Blood Pressure 174/85 176/85 O2 Sat by Pulse 90 L 92 L Oximetry Medical Decision Making - Medical Decision Making Was pt. sent in by a medical professional or institution (JENNIFER Saunders, FRONT OFFICE ASSOCIATE, urgent care, hospital, or half-way...) When possible be specific @ -Sent from her assisted living facility. Did you speak to anyone other than the patient for history (EMS, parent, family, police, friend...)? What history was obtained from this source @ -I spoke with nursing staff who spoke with the EMS provided history. Did you review nursing and triage notes (agree or disagree)? Why? @ -I reviewed and agree with nursing and triage notes Were old charts reviewed (outside hosp., previous admission, EMS record, old EKG, old radiological studies, urgent care reports/EKG's, half-way records)? Report findings @ -Old charts reviewed. Differential Diagnosis (chest pain, altered mental status, abdominal pain women, abdominal pain men, vaginal bleeding, weakness, fever, dyspnea, syncope, headache, dizziness, GI bleed, back pain, seizure, CVA, palpatations, mental health, musculoskeletal)? @ -Differential Syncope: Valvular disease, hypertrophic cardiomyopathy, pulmonary embolism, tamponade, tachycardia, bradycardia, SC, hypovolemia, hemorrhage, dissection, anemia, intracranial hemorrhage, seizure, hypoglycemia, carbon monoxide poisoning, this is not meant to be an all-inclusive list. EKG interpreted by me (3pts min.). @ -As above X-rays interpreted by me (1pt min.). @ -Chest x-ray reveals no obvious acute cardio pulmonary process. CT interpreted by me (1pt min.). @ -CT brain shows no obvious acute intracranial process or injury. U/S interpreted by me (1pt. min.). @ -None done What testing was considered but not performed or refused? (CT, X-rays, U/S, labs)? Why? @ -None What meds were considered but not given or refused? Why? @ -None Did you discuss the management of the patient with other professionals (professionals i.e. JENNIFER Saunders, FRONT OFFICE ASSOCIATE, lab, RT, psych nurse, social media campaign manager, marketing community liaison, teacher, chief juvenile probation officer, piano case and bench assembler)? Give summary @ -Discussed with Dr. Vaughn as he was rounding who reviewed EKG and was in agreement with admission and troponin trending. Discussed with Dr. Villa who is covering for Dr. Ness for admitting and accepted the patient. Was smoking cessation discussed for >3mins.? @ -No Was critical care preformed (if so, how long)? @ -No Were there social determinants of health that impacted care today? How? (Homelessness, low income, unemployed, alcoholism, drug addiction, transportation, low edu. Level, literacy, decrease access to med. care, prison, rehab)? @ -No Was there de-escalation of care discussed even if they declined (Discuss DNR or withdrawal of care, Hospice)? DNR status @ -Patient is DO NOT RESUSCITATE per her assisted living home paperwork What co-morbidities impacted this encounter? (DM, HTN, Smoking, COPD, CAD, Cancer, CVA, ARF, Chemo, Hep., AIDS, mental health diagnosis, sleep apnea, morbid obesity)? @ -None Was patient admitted / discharged? Hospital course, mention meds given and route, prescriptions, significant lab abnormalities, going to OR and other per tinent info. @ -Based on the patient's presentation and physical exam, presents with a syncopal episode. We will obtain syncope workup. She has no acute complaints at this time. She is on blood thinners and therefore we will obtain CT brain. Vital signs are currently within acceptable limits. Patient was in agreement this plan. She was given a 1 L fluid bolus. EKG shows what appears to be a new left bundle branch block however we have no recent EKG for comparison since last March. Patient has no ACS symptoms at this time denying any chest pain, shortness of breath, lightheadedness. I did briefly showed EKG to Dr. Vaughn who is running in the ER and he was in agreement with likely admission trending the troponin as the patient is asymptomatic at this time. Patient's imaging negative. Patient's labs were remarkable for lactic acidosis of 2.6 likely secondary to mild dehydration. Remainder the labs within acceptable limits. On reevaluation, patient is asymptomatic. We did discuss her workup. Patient's daughter is now bedside. I discussed the EKG findings and we would like to admit the patient for cardiology evaluation, telemetry monitoring, as well as troponin trending. They were in agreement this plan. Patient will be an observation admission. I spoke with admitting team, Dr. Villa of [facility] emergency department who is covering for Dr. Ness who normally admits for Dr. Anne. Patient was accepted. Undiagnosed new problem with uncertain prognosis? @ -No Drug Therapy requiring intensive monitoring for toxicity (Heparin, Nitro, Insulin, Cardizem)? @ -No Were any procedures done? @ -No Diagnosis/symptom? @ -Syncope, new left bundle branch block Acute, or Chronic, or Acute on Chronic? @ -Acute Uncomplicated (without systemic symptoms) or Complicated (systemic symptoms)? @ -Complicated Side effects of treatment? @ -none Exacerbation, Progression, or Severe Exacerbation] @ -no Poses a threat to life or bodily function? @ -Possibly - Lab Data Result diagrams: 04/26/23 10:37 04/26/23 10:37 Lab Results 04/26/23 04/26/23 04/26/23 Range/Units 10:18 10:37 10:37 WBC 8.0 (3.8-10.6) k/uL RBC 4.97 (3.80-5.40) m/uL Hgb 15.3 (11.4-16.0) gm/dL Hct 47.7 H (34.0-46.0) % MCV 95.8 (80.0-100.0) fL MCH 30.7 (25.0-35.0) pg MCHC 32.0 (31.0-37.0) g/dL RDW 13.7 (11.5-15.5) % Plt Count 227 (150-450) k/uL MPV 9.1 Neutrophils % 59 % Lymphocytes % 27 % Monocytes % 7 % Eosinophils % 4 % Basophils % 1 % Neutrophils # 4.8 (1.3-7.7) k/uL Lymphocytes # 2.2 (1.0-4.8) k/uL Monocytes # 0.6 (0-1.0) k/uL Eosinophils # 0.3 (0-0.7) k/uL Basophils # 0.0 (0-0.2) k/uL PT 11.7 (10.0-12.5) sec INR 1.1 (<1.2) APTT 23.2 (22.0-30.0) sec Sodium (137-145) mmol/L Potassium (3.5-5.1) mmol/L Chloride (98-107) mmol/L Carbon Dioxide (22-30) mmol/L Anion Gap mmol/L BUN (7-17) mg/dL Creatinine (0.52-1.04) mg/dL Est GFR (CKD-EPI)AfAm (>60 ml/min/1.73 sqM) Est GFR (CKD-EPI)NonAf (>60 ml/min/1.73 sqM) Glucose (74-99) mg/dL POC Glucose (mg/dL) 105 (70-110) mg/dL POC Glu Lower In Supervisor ID Rosette Curtis Lactic Ac Sepsis Rflx Plasma Lactic Acid Serge (0.7-2.0) mmol/L Calcium (8.4-10.2) mg/dL Magnesium (1.6-2.3) mg/dL Total Bilirubin (0.2-1.3) mg/dL AST (14-36) U/L ALT (4-34) U/L Alkaline Phosphatase (38-126) U/L Troponin I (0.000-0.034) ng/mL Total Protein (6.3-8.2) g/dL Albumin (3.5-5.0) g/dL Urine Color Urine Appearance (Clear) Urine pH (5.0-8.0) Ur Specific Overton (1.001-1.035) Urine Protein (Negative) Urine Glucose (UA) (Negative) Urine Ketones (Negative) Urine Blood (Negative) Urine Nitrite (Negative) Urine Bilirubin (Negative) Urine Urobilinogen (<2.0) mg/dL Ur Leukocyte Esterase (Negative) Influenza Type A (PCR) (Not Detectd) Influenza Type B (PCR) (Not Detectd) RSV (PCR) (Not Detectd) SARS-CoV-2 (PCR) (Not Detectd) 04/26/23 04/26/23 04/26/23 Range/Units 10:37 10:37 10:37 WBC (3.8-10.6) k/uL RBC (3.80-5.40) m/uL Hgb (11.4-16.0) gm/dL Hct (34.0-46.0) % MCV (80.0-100.0) fL MCH (25.0-35.0) pg MCHC (31.0-37.0) g/dL RDW (11.5-15.5) % Plt Count (150-450) k/uL MPV Neutrophils % % Lymphocytes % % Monocytes % % Eosinophils % % Basophils % % Neutrophils # (1.3-7.7) k/uL Lymphocytes # (1.0-4.8) k/uL Monocytes # (0-1.0) k/uL Eosinophils # (0-0.7) k/uL Basophils # (0-0.2) k/uL PT (10.0-12.5) sec INR (<1.2) APTT (22.0-30.0) sec Sodium 142 (137-145) mmol/L Potassium 4.4 (3.5-5.1) mmol/L Chloride 106 (98-107) mmol/L Carbon Dioxide 23 (22-30) mmol/L Anion Gap 13 mmol/L BUN 17 (7-17) mg/dL Creatinine 0.71 (0.52-1.04) mg/dL Est GFR (CKD-EPI)AfAm 88 (>60 ml/min/1.73 sqM) Est GFR (CKD-EPI)NonAf 76 (>60 ml/min/1.73 sqM) Glucose 106 H (74-99) mg/dL POC Glucose (mg/dL) (70-110) mg/dL POC Glu Lower In Supervisor ID Lactic Ac Sepsis Rflx Plasma Lactic Acid Serge 2.6 H* (0.7-2.0) mmol/L Calcium 9.5 (8.4-10.2) mg/dL Magnesium 2.0 (1.6-2.3) mg/dL Total Bilirubin 0.7 (0.2-1.3) mg/dL AST 29 (14-36) U/L ALT 18 (4-34) U/L Alkaline Phosphatase 74 (38-126) U/L Troponin I (0.000-0.034) ng/mL Total Protein 6.8 (6.3-8.2) g/dL Albumin 4.1 (3.5-5.0) g/dL Urine Color Colorless Urine Appearance Clear (Clear) Urine pH 7.5 (5.0-8.0) Ur Specific Overton 1.011 (1.001-1.035) Urine Protein Trace H (Negative) Urine Glucose (UA) Negative (Negative) Urine Ketones Negative (Negative) Urine Blood Negative (Negative) Urine Nitrite Negative (Negative) Urine Bilirubin Negative (Negative) Urine Urobilinogen <2.0 (<2.0) mg/dL Ur Leukocyte Esterase Negative (Negative) Influenza Type A (PCR) (Not Detectd) Influenza Type B (PCR) (Not Detectd) RSV (PCR) (Not Detectd) SARS-CoV-2 (PCR) (Not Detectd) 04/26/23 04/26/23 04/26/23 Range/Units 10:37 10:37 11:29 WBC (3.8-10.6) k/uL RBC (3.80-5.40) m/uL Hgb (11.4-16.0) gm/dL Hct (34.0-46.0) % MCV (80.0-100.0) fL MCH (25.0-35.0) pg MCHC (31.0-37.0) g/dL RDW (11.5-15.5) % Plt Count (150-450) k/uL MPV Neutrophils % % Lymphocytes % % Monocytes % % Eosinophils % % Basophils % % Neutrophils # (1.3-7.7) k/uL Lymphocytes # (1.0-4.8) k/uL Monocytes # (0-1.0) k/uL Eosinophils # (0-0.7) k/uL Basophils # (0-0.2) k/uL PT (10.0-12.5) sec INR (<1.2) APTT (22.0-30.0) sec Sodium (137-145) mmol/L Potassium (3.5-5.1) mmol/L Chloride (98-107) mmol/L Carbon Dioxide (22-30) mmol/L Anion Gap mmol/L BUN (7-17) mg/dL Creatinine (0.52-1.04) mg/dL Est GFR (CKD-EPI)AfAm (>60 ml/min/1.73 sqM) Est GFR (CKD-EPI)NonAf (>60 ml/min/1.73 sqM) Glucose (74-99) mg/dL POC Glucose (mg/dL) (70-110) mg/dL POC Glu Lower In Supervisor ID Lactic Ac Sepsis Rflx Y Plasma Lactic Acid Serge (0.7-2.0) mmol/L Calcium (8.4-10.2) mg/dL Magnesium (1.6-2.3) mg/dL Total Bilirubin (0.2-1.3) mg/dL AST (14-36) U/L ALT (4-34) U/L Alkaline Phosphatase (38-126) U/L Troponin I <0.012 (0.000-0.034) ng/mL Total Protein (6.3-8.2) g/dL Albumin (3.5-5.0) g/dL Urine Color Urine Appearance (Clear) Urine pH (5.0-8.0) Ur Specific Overton (1.001-1.035) Urine Protein (Negative) Urine Glucose (UA) (Negative) Urine Ketones (Negative) Urine Blood (Negative) Urine Nitrite (Negative) Urine Bilirubin (Negative) Urine Urobilinogen (<2.0) mg/dL Ur Leukocyte Esterase (Negative) Influenza Type A (PCR) Not Detected (Not Detectd) Influenza Type B (PCR) Not Detected (Not Detectd) RSV (PCR) Not Detected (Not Detectd) SARS-CoV-2 (PCR) Not Detected (Not Detectd) - EKG Data -: EKG Interpreted by Me EKG Comments: 12-lead Electrocardiogram Interpretation Note EKG was reviewed and interpreted by myself. 12-lead ECG performed at 1013 is interpreted by me as revealing sinus bradycardia at a rate of 58 beats per minute. Left axis deviation. WV interval is 176 ms, QRS durations 149 ms, QTc is 450 ms. Appears to have a new left bundle branch block, as no prior EKGs show evidence of this. However, patient's most recent EKG is from March 2022.. There were no obvious ST or T wave abnormalities to suggest myocardial ischemia or injury. R wave progression across the precordium delayed. Disposition Clinical Impression: Syncope, New onset left bundle branch block (LBBB) Disposition: ADMITTED IP TO THIS HOSP Condition: Stable Time of Disposition: 12:45
--- NOTE | 2023-04-26 12:17 | CT ---
EXAMINATION TYPE: CT brain wo con DATE OF EXAM: 04/26/2023 COMPARISON: 04/19/2022 INDICATION: syncope DLP: 1087.4 mGycm, Automated exposure control for dose reduction was used. CONTRAST: None CT of the brain is performed utilizing 3 mm thick sections through the posterior fossa and 3 mm thick sections through the remaining calvarium. Study is performed within 24 hours of arrival to the hosp ital. No abnormal hyperdensity is present to suggest an acute intracranial hemorrhage. No mass lesion is evident. No acute infarcts are evident. Patchy periventricular white matter hypodensity is present, likely on the basis of chronic white matter ischemic changes. Ventricles and sulci are prominent for the patient age. Paranasal sinuses and mastoid air cells within the [id number] are clear. IMPRESSION: 1. Atrophy with chronic appearing periventricular white matter ischemic changes, stable from compar maty. 2. No acute intracranial process. Follow-up MRI can be performed as clinically indicated.
[2023-04-26] MEDS ORDERED: NALOXONE 0.4 MG/ML 1 ML VIAL IV PRN (12:53)
[2023-04-26] MEDS ORDERED: ONDANSETRON 4 MG/2 ML VIAL IVP PRN (12:53)
--- NOTE | 2023-04-26 12:57 | XR ---
EXAMINATION TYPE: XR chest 2V DATE OF EXAM: 04/26/2023 10:47 AM CLINICAL INDICATION:Female, 88 years old with history of syncope; [facility] COMPARISON: 04/19/2022 TECHNIQUE: XR chest 2V Frontal and lateral views of the chest. FINDINGS: Lines/Tubes: EKG leads overlie the chest. No indwelling lines are seen. Lungs/Pleura: Mild asymmetric elevation right hemidiaphragm with mild basilar atelectasis and/or scar ring. Mild chronic senescent changes otherwise. There is no evidence of pleural effusion, focal conso lidation, or pneumothorax. Pulmonary vascularity: Unremarkable. Heart/mediastinum: Cardiomediastinal silhouette is stable. Heart size upper normal. Musculoskeletal: No acute osseous pathology. Degenerative changes of the shoulders and spine. Other findings: None IMPRESSION: Overall stable exam. Chronic lung changes, without evidence of an acute abnormality.
[2023-04-26] MEDS: SODIUM CHLORIDE 0.9% 1,000 ML IV SCH (13:42)
[2023-04-26] MEDS ORDERED: ASPIRIN 81 MG PO STA (13:58)
--- NOTE | 2023-04-26 16:14 | P.HPIM ---
History of Present Illness H&P Date: 04/26/23 88-year-old female with PMH of atrial fibrillation, dyslipidemia, hypothyroidism presents the ED after syncopal episode. Patient reports taking a shower, walking back and sitting down when she apparen tly had a syncopal episode. She denies any prodrome prior to her syncope. She denies any episode of shaking, bladder or bowel incontinence. She denies any postictal confusion. She denies any chest pain, shortness breath or palpitations. Currently feeling at baseline. In the ED, she underwent extensive evaluation. CBC showed hematocrit 47.7 Coagulation panel within normal limits CMP showed glucose 106 Lactic acid 2.6 Troponin less than 0.012. Magnesium 2.0. Urinalysis trace protein. Influenza, COVID-19, RSV negative. EKG showed sinus bradycardia with left bundle branch block. CT brain negative for acute pathology. Chest x-ray negative for acute pathology. General: non toxic, no distress, appears at stated age Derm: warm, dry Head: atraumatic, normocephalic, symmetric Eyes: EOMI, no lid lag, anicteric sclera Cardiovascular: S1S2 reg, no murmur Lungs: CTA bilateral, no rhonchi, no rales , no accessory muscle use Abdominal: soft, nontender to palpation, no guarding, no appreciable organomegaly Ext: no gross muscle atrophy, no edema, no contractures Neuro: no focal neuro deficits Psych: Alert, oriented, appropriate affect Syncope Lactic acidosis LBBB Chronic conditions: atrial fibrillation, dyslipidemia, hypothyroidism Based on my assessment of this patient, this patient meets a high complexity level of care. Patient has an acute diagnosis of syncope with new LBBB on EKG which poses a threat to life or bodily function. Syncope: Trend Trop/EKG to rule out ACS. Echo. Telemetry monitoring. Cardiology consult. Lactic acidosis: NS at 75 cc/hr. Trend until negative. LBBB: Management as above. Eliquis for DVT prophylaxis. NO CODE. Decision maker is her son if she can't make decisions for himself. I have reviewed the following information consultant notes: I have reviewed the results of the following tests: As above. I have ordered the following tests: Trop. Echo. I have discussed the care of this patient with the following independent historian: I have independently interpreted the following test below: EKG. I have discussed the management of this patient with the following physician: Past Medical History Past Medical History: Atrial Fibrillation, Coronary Artery Disease (CAD), Hypertension, Thyroid Disorder History of Any Multi-Drug Resistant Organisms: None Reported Past Surgical History: Joint Replacement Additional Past Surgical History / Comment(s): bilateral Knee replacement Past Anesthesia/Blood Transfusion Reactions: No Reported Reaction Past Psychological History: No Psychological Hx Reported Smoking Status: Former smoker Past Alcohol Use History: Daily Past Drug Use History: None Reported - Past Family History Father Family Medical History: Coronary Artery Disease (CAD) Medications and Allergies Home Medications Medication Instructions Recorded Confirmed Type Apixaban [Eliquis] 5 mg PO BID 06/21/21 04/26/23 History Atorvastatin [Lipitor] 20 mg PO HS 06/21/21 04/26/23 History Cholecalciferol [Vitamin D3 (25 25 mcg PO DAILY 06/21/21 04/26/23 History Mcg = 1000 Iu)] Raloxifene HCl 60 mg PO DAILY 06/21/21 04/26/23 History Vit C/E/Zn/Coppr/Lutein/Zeaxan 1 cap PO BID 06/21/21 04/26/23 History [Preservision Areds 2 Softgel] Docusate [Colace] 100 mg PO BID 11/22/21 04/26/23 History Acetaminophen [Tylenol] 650 mg PO Q6H PRN 04/26/23 04/26/23 History Levothyroxine Sodium [Synthroid] 125 mcg PO [id number] 04/26/23 04/26/23 History Melatonin 5 mg PO HS 04/26/23 04/26/23 History Metoprolol Succinate [Metoprolol 12.5 mg PO DAILY 04/26/23 04/26/23 History Succinate ER] Allergies Allergy/AdvReac Type Severity Reaction Status Date / Time No Known Allergies Allergy Verified 04/26/23 13:59 Physical Exam Vitals: Vital Signs Temp Pulse Pulse Resp BP Pulse Ox 04/26/23 13:00 60 19 176/85 92 L 04/26/23 12:00 51 L 18 174/85 90 L 04/26/23 11:00 58 L 16 145/78 92 L 04/26/23 10:38 56 L 04/26/23 10:17 98.8 F 56 L 18 162/87 91 L Intake and Output 04/26/23 04/26/23 04/26/23 06:59 14:59 22:59 Other: Weight 90.718 kg Results CBC & Chem 7: 04/26/23 10:37 04/26/23 10:37 Labs: Abnormal Lab Results - Last 24 Hours (Table) 04/26/23 04/26/23 04/26/23 Range/Units 10:37 10:37 10:37 Hct 47.7 H (34.0-46.0) % Glucose 106 H (74-99) mg/dL Plasma Lactic Acid Serge (0.7-2.0) mmol/L Urine Protein Trace H (Negative) 04/26/23 Range/Units 10:37 Hct (34.0-46.0) % Glucose (74-99) mg/dL Plasma Lactic Acid Serge 2.6 H* (0.7-2.0) mmol/L Urine Protein (Negative)
[2023-04-26] MEDS: ATORVASTATIN 20 MG TAB PO SCH (22:00)
[2023-04-26] MEDS: MELATONIN 5 MG TABLET PO SCH (22:00)
[2023-04-26] MEDS: APIXABAN 5 MG TAB PO SCH (22:00)
[2023-04-27] MEDS ORDERED: ACETAMINOPHEN TAB 325 MG TAB PO PRN (01:07)
[2023-04-27] MEDS: SODIUM CHLORIDE 0.9% 1,000 ML IV SCH ×2 (02:26→19:44)
[2023-04-27 09:00] LABS: BUN/Creat Ratio 20.86 Ratio (12.00-20.00); Blood Urea Nitrogen 14.6 mg/dL (9.0-27.0); Calcium 8.9 mg/dL (8.7-10.3); Carbon Dioxide 23.4 mmol/L (21.6-31.8); Chloride 111 mmol/L (96-109); Glucose 93 mg/dL (70-110); Potassium 4.6 mmol/L (3.5-5.5); Sodium 145 mmol/L (135-145)
[2023-04-27 09:12] LABS: Basophils # (A) 0.07 X 10*3/uL (0.00-0.10); Basophils % (A) 0.6 %; Eosinophils # (A) 0.27 X 10*3/uL (0.04-0.35); Eosinophils % (A) 2.2 %; HCT 42.7 % (37.2-46.3); HGB 13.6 d/dL (12.0-15.0); Lymphocytes # (A) 2.99 X 10*3/uL (0.90-5.00); Lymphocytes % (A) 24.1 %; MCH 30.4 pg (27.0-32.0); MCHC 31.9 d/dL (32.0-37.0); MCV 95.3 FL (80.0-97.0); Mean Platelet Volume 11.6 FL (9.5-12.2); Monocytes # (A) 1.12 X 10*3/uL (0.20-1.00); NRBC Per 100 WBC 0 X 10*3/uL (0.00-0.01); Neutrophils % (A) 63.6 %; Platelet Count 249 X 10*3/uL (140-440); RBC 4.48 X 10*6/uL (4.10-5.20); WBC 12.41 X 10*3/uL (4.50-10.00)
[2023-04-27] MEDS: APIXABAN 5 MG TAB PO SCH ×2 (10:09→21:17)
[2023-04-27] MEDS: METOPROLOL SUCCINATE (ER) 25 MG TAB.ER.24H PO SCH (10:09)
[2023-04-27] MEDS: LEVOTHYROXINE 125 MCG TAB PO SCH (10:09)
[2023-04-27] MEDS: RALOXIFENE 60 MG TAB PO SCH (10:10)
--- NOTE | 2023-04-27 10:18 | P.CRDCN ---
History of Present Illness Consult date: 04/27/23 Consult reason: sycope (new LBBB) History of present illness: History of present illness: This is an 88-year-old female patient of Dr. Calvin Jorgensen with past medical history of paroxysmal atrial fibrillation, mitral regurgitation, dyslipidemia hypoth yroidism. We've been asked to evaluate the patient for syncope and new left bundle branch block. Patient states that she had passed out. She states that she took her shower she walked over to the bed and sat down and the next thing she knew she was completely out. She is unsure how long she was out. She denies having any weakness at this time. She denies having any change in her speech. No shortness of breath no chest pain, no dizziness. She states she is usually active. She states that Dr. Esquivel was evaluating her for pacemaker knee. This was not indicated in his last office note dated 03/19/2023. EKG sinus bradycardia at 56 bpm with left bundle branch block compared to old EKGs is new finding. Chest x-ray: Stable exam. Chronic lung changes without evidence of acute abnormality. CT of the brain revealed atrophy with chronic appearing periventricular white matter changes. No acute intracranial process. WBC 12.4, hemoglobin 13.6, platelet count 249. INR 1.1. Electrolytes and renal function unremarkable. Blood sugar 106. Lactic acid 2.6 followed by 1.6. Troponin negative 3. Liver function tests are normal. Urinalysis negative for infection. Influenza A, influenza B, RSV, Covid 19 not detected. Home cardiac medications: Eliquis 5 mg twice daily, atorvastatin 20 mg at bedtime, levothyroxine 125 g daily, metoprolol succinate 12.5 mg daily Review Of Systems: At the time of my evaluation: Constitutional: No fever, no chills. No weakness, fatigue or lethargy. EENT: No headache. No dizziness. Lungs: No shortness of breath, cough, no sputum production. No wheezing. Cardiovascular: No chest pain, no lower extremity edema. No palpitations. No paroxysmal nocturnal dyspnea. No orthopnea. No lightheadedness or dizziness. + syncopal episodes. Abdominal: No abdominal pain. No nausea, vomiting. No diarrhea. No constipation. No bloody or tarry stools. Genitourinary: No dysuria. Musculoskeletal: No myalgias. No muscle weakness, no frequent falls. Integumentary: No wounds. No rash. No unusual bruising. Neurologic: No aphasia. No facial droop. No change in mentation. Physical examination: Gen: This is an 88-year-old female. She is resting in bed and appears to be comfortable and in no acute distress. VS: reviewed HEENT: Head is atraumatic, normocephalic. Pupils equal, round. Sclerae is anicteric. NECK: Supple. No JVD. LUNGS: Clear to auscultation. No wheezes or rhonchi. No intercostal retractions. HEART: Regular rate and rhythm. 2/6 systolic murmur. ABDOMEN: Soft No tenderness. EXTREMITIES: No pedal edema. No calf tenderness. NEUROLOGICAL: Patient is awake, alert and oriented x3. Assessment: Syncopal episode rule out orthostatic hypotension, AV block, arrhythmia Paroxysmal atrial fibrillation Mitral regurgitation Dyslipidemia Hypothyroidism Plan: Resume patient's home cardiac medications Continue telemetry monitoring Obtain 2-D echocardiogram and Doppler study to assess cardiac structure and function We will review records from the office for further determination of plan. Patient may require event monitor or loop recorder. Further recommendations to follow based upon clinical course Thank you kindly for this consultation. Nurse practitioner note has been reviewed, I agree with documented findings and plan of care. Patient was seen and examined. Past Medical History Past Medical History: Atrial Fibrillation, Coronary Artery Disease (CAD), Hypertension, Thyroid Disorder History of Any Multi-Drug Resistant Organisms: None Reported Past Surgical History: Joint Replacement Additional Past Surgical History / Comment(s): bilateral Knee replacement Past Anesthesia/Blood Transfusion Reactions: No Reported Reaction Past Psychological History: No Psychological Hx Reported Smoking Status: Former smoker Past Alcohol Use History: Daily Past Drug Use History: None Reported - Past Family History Father Family Medical History: Coronary Artery Disease (CAD) Medications and Allergies Home Medications Medication Instructions Recorded Confirmed Type Apixaban [Eliquis] 5 mg PO BID 06/21/21 04/26/23 History Atorvastatin [Lipitor] 20 mg PO HS 06/21/21 04/26/23 History Cholecalciferol [Vitamin D3 (25 25 mcg PO DAILY 06/21/21 04/26/23 History Mcg = 1000 Iu)] Raloxifene HCl 60 mg PO DAILY 06/21/21 04/26/23 History Vit C/E/Zn/Coppr/Lutein/Zeaxan 1 cap PO BID 06/21/21 04/26/23 History [Preservision Areds 2 Softgel] Docusate [Colace] 100 mg PO BID 11/22/21 04/26/23 History Acetaminophen [Tylenol] 650 mg PO Q6H PRN 04/26/23 04/26/23 History Levothyroxine Sodium [Synthroid] 125 mcg PO AC-BRKFST 04/26/23 04/26/23 History Melatonin 5 mg PO HS 04/26/23 04/26/23 History Metoprolol Succinate [Metoprolol 12.5 mg PO DAILY 04/26/23 04/26/23 History Succinate ER] Allergies Allergy/AdvReac Type Severity Reaction Status Date / Time No Known Allergies Allergy Verified 04/27/23 09:55 Physical Exam Vitals: Vital Signs Temp Pulse Pulse Resp BP Pulse Ox 04/27/23 06:21 56 L 16 175/86 92 L 04/27/23 05:00 63 17 95 04/27/23 03:35 61 16 186/88 93 L 04/26/23 13:00 60 19 176/85 92 L 04/26/23 12:00 51 L 18 174/85 90 L 04/26/23 11:00 58 L 16 145/78 92 L 04/26/23 10:38 56 L 04/26/23 10:17 98.8 F 56 L 18 162/87 91 L Results 04/27/23 05:53 04/27/23 05:53 Cardiac Enzymes 04/26/23 04/26/23 04/26/23 Range/Units 10:37 10:37 14:46 AST 29 (14-36) U/L Troponin I <0.012 0.014 (0.000-0.034) ng/mL 04/26/23 Range/Units 18:33 AST (14-36) U/L Troponin I <0.012 (0.000-0.034) ng/mL Coagulation 04/26/23 Range/Units 10:37 PT 11.7 (10.0-12.5) sec APTT 23.2 (22.0-30.0) sec CBC 04/26/23 Range/Units 10:37 WBC 8.0 (3.8-10.6) k/uL RBC 4.97 (3.80-5.40) m/uL Hgb 15.3 (11.4-16.0) gm/dL Hct 47.7 H (34.0-46.0) % Plt Count 227 (150-450) k/uL Comprehensive Metabolic Panel 04/26/23 Range/Units 10:37 Sodium 142 (137-145) mmol/L Potassium 4.4 (3.5-5.1) mmol/L Chloride 106 (98-107) mmol/L Carbon Dioxide 23 (22-30) mmol/L BUN 17 (7-17) mg/dL Creatinine 0.71 (0.52-1.04) mg/dL Glucose 106 H (74-99) mg/dL Calcium 9.5 (8.4-10.2) mg/dL AST 29 (14-36) U/L ALT 18 (4-34) U/L Alkaline Phosphatase 74 (38-126) U/L Total Protein 6.8 (6.3-8.2) g/dL Albumin 4.1 (3.5-5.0) g/dL Current Medications Generic Name Dose Route Start Last Admin Trade Name Freq PRN Reason Stop Dose Admin Acetaminophen 650 mg 04/27/23 01:07 Acetaminophen Tab 325 Mg Tab PO Q4HR PRN Fever and/ or Mild Pain Apixaban 5 mg 04/26/23 21:00 04/26/23 22:00 Apixaban 5 Mg Tab PO 5 mg BID MICHELA Administration Protocol Atorvastatin Calcium 20 mg 04/26/23 21:00 04/26/23 22:00 Atorvastatin 20 Mg Tab PO 20 mg HS MICHELA Administration Sodium Chloride 1,000 mls @ 75 mls/hr 04/26/23 13:00 04/27/23 02:26 Saline 0.9% IV 75 mls/hr .[id number] MICHELA Administration Levothyroxine Sodium 125 mcg 04/27/23 07:30 Levothyroxine 125 Mcg Tab PO AC-BRKFST MICHELA Melatonin 5 mg 04/26/23 21:00 04/26/23 22:00 Melatonin 5 Mg Tablet PO 5 mg HS MICHELA Administration Metoprolol Succinate 12.5 mg 04/27/23 09:00 Metoprolol Succinate (Er) 25 Mg Tab.Er.24h PO DAILY MICHELA Naloxone HCl 0.2 mg 04/26/23 12:53 Naloxone 0.4 Mg/Ml 1 Ml Vial IV Q2M PRN Opioid Reversal Ondansetron HCl 4 mg 04/26/23 12:53 Ondansetron 4 Mg/2 Ml Vial IVP Q8HR PRN Nausea And Vomiting Raloxifene HCl 60 mg 04/27/23 09:00 Raloxifene 60 Mg Tab PO DAILY [facility] 04/26/23 10:37 04/26/23 10:37
--- NOTE | 2023-04-27 19:23 | CA ---
Transthoracic Echo Report Name: Namita Velazquez Age: 88 Gender: F : 1935 Exam Date: 04/27/2023 15:58 Exam Location: [place] [facility] Ht (in): 64 Wt (lb): 200 Ordering Physician: Raad Pacheco MD Attending/Referring Phys: Page Makeup System Operator Becky Russo [facility] Procedure CPT: Indications: Syncope Cardiac Hx: Technical Quality: Fair Contrast 1: Total Dose (mL): Contrast 2: Total Dose (mL): MEASUREMENTS (Male / Female) Normal Values 2D ECHO LV Diastolic Diameter PLAX 4.9 cm 4.2 - 5.9 / 3.9 - 5.3 cm LV Systolic Diameter PLAX 3.8 cm IVS Diastolic Thickness 0.8 cm 0.6 - 1.0 / 0.6 - 0.9 cm LVPW Diastolic Thickness 0.9 cm 0.6 - 1.0 / 0.6 - 0.9 cm LV Relative Wall Thickness 0.4 LVOT Diameter 2.0 cm Ascending Aorta Diameter 3.4 cm M-MODE Aortic Root Diameter MM 2.5 cm LA Systolic Diameter MM 4.9 cm LA Ao Ratio MM 2.0 AV Cusp Separation MM 1.7 cm DOPPLER AV Peak Velocity 136.2 cm/s AV Peak Gradient 7.4 mmHg AV Mean Velocity 85.9 cm/s AV Mean Gradient 3.4 mmHg AV Velocity Time Integral 24.6 cm LVOT Peak Velocity 98.4 cm/s LVOT Peak Gradient 3.9 mmHg LVOT Velocity Time Integral 19.1 cm LVOT Stroke Volume 57.1 cm??? LVOT Stroke Volume Index 29.2 ml/m??? LVOT Cardiac Index 1633.2 cm???/min???m??? AV Area Cont Eq vti 2.3 cm??? AV Area Cont Eq pk 2.2 cm??? MV Peak Velocity 135.7 cm/s MV Peak Gradient 7.4 mmHg MV Mean Velocity 61.0 cm/s MV Mean Gradient 2.0 mmHg MV Velocity Time Integral 41.6 cm MR Peak Velocity 630.7 cm/s MR Peak Gradient 159.1 mmHg Mitral E Point Velocity 122.5 cm/s Mitral A Point Velocity 88.0 cm/s Mitral E to A Ratio 1.4 MV Deceleration Time 176.2 ms LV E' Lateral Velocity 8.3 cm/s Mitral E to LV E' Lateral Ratio 14.7 LV E' Septal Velocity 5.6 cm/s Mitral E to LV E' Septal Ratio 22.0 TR Peak Velocity 315.5 cm/s TR Peak Gradient 39.8 mmHg Right Atrial Pressure 3.0 mmHg Pulmonary Artery Systolic Pressu 42.8 mmHg Right Ventricular Systolic Press 44.8 mmHg FINDINGS Left Ventricle Left ventricular cavity size normal. Left ventricular wall thickness normal. Low normal left ventricular systolic function with no obvious regional wall motion abnormalities. Left ventricular ejection fraction is estimated at 55-60 %. Right Ventricle Normal right ventricular size. Mild pulmonary hypertension Right Atrium Normal right atrial size. Left Atrium Severe left atrial dilatation. Mitral Valve Mitral valve thickened. Moderate to Severe mitral regurgitation. Aortic Valve Trileaflet aortic valve. Aortic valve sclerosis. Trace aortic regurgitation. Tricuspid Valve Structurally normal tricuspid valve. Moderate tricuspid regurgitation. Pulmonic Valve Pulmonic valve not well visualized. Pericardium Minimal pericardial effusion (normal variant). Echo free space anterior to the right ventricle likely represents a fat pad. Aorta Normal size aortic root and proximal ascending aorta. CONCLUSIONS 1. Normal left ventricular size and systolic function 2. Moderate to severe mitral regurgitation 3. Moderate tricuspid regurgitation with mild pulmonary hypertension Previewed by: Dr. Vangie Logan MD (Electronically Signed) Final Date: 27 April 2023 19:22
[2023-04-27] MEDS: ATORVASTATIN 20 MG TAB PO SCH (21:17)
[2023-04-27] MEDS: MELATONIN 5 MG TABLET PO SCH (21:17)
--- NOTE | 2023-04-27 22:18 | P.PN ---
Progress Note - Text Progress Note Date: 04/27/23 88-year-old female with PMH of atrial fibrillation, dyslipidemia, hypothyroidism presents the ED after syncopal episode. Patient reports taking a shower, walking back and sitting down when she apparently had a syncopal episode. She denies any prodrome prior to her syncope. She denies any episode of shaking, bladder or bowel incontinence. She denies any postictal confusion. She denies any chest pain, shortness breath or palpitations. Currently feeling at baseline. April 27: I assumed care of the patient today. Daughter the bedside. Patient been up to the bathroom. Eating fair. Her fever no chills. Often likes to lie down. Discussed with her daughter were deconditioning. 2-D echo was done. Cardiology will review office records then go from there. In the ED, she underwent extensive evaluation. CBC showed hematocrit 47.7 Coagulation panel within normal limits CMP showed glucose 106 Lactic acid 2.6 Troponin less than 0.012. Magnesium 2.0. Urinalysis trace protein. Influenza, COVID-19, RSV negative. EKG showed sinus bradycardia with left bundle branch block. CT brain negative for acute pathology. Chest x-ray negative for acute pathology. On examination: VITAL SIGNS: [97.7, 60, 16, 155/62, 94% room air] GENERAL APPEARANCE: Laying in bed, comfortable HEENT: Normal external appearance of nose and ear. Oral cavity normal EYES: Pupils equal. Conjunctiva normal. NECK: JVD not raised. Mass not palpable. RESPIRATORY: Respiratory effort normal. Lungs clear to auscultation. CARDIOVASCULAR: First and second sounds normal. No edema. ABDOMEN: Soft. Liver and spleen not palpable. No tenderness. No mass palpable. PSYCHIATRY: Able to answer simple questions. Assessment and plan: Syncope Lactic acidosis LBBB Chronic conditions: Paroxysmal atrial fibrillation, dyslipidemia, hypothyroidism Deconditioning Discussed with daughter at the bedside. Await further input from cardiology Encourage patient to be out of bed up in a chair.
[2023-04-28] MEDS: LEVOTHYROXINE 125 MCG TAB PO SCH (05:52)
[2023-04-28] MEDS: SODIUM CHLORIDE 0.9% 1,000 ML IV SCH (05:52)
[2023-04-28 07:41] VITALS: RESP 16; TEMP 97.5
[2023-04-28] MEDS: RALOXIFENE 60 MG TAB PO SCH (08:35)
[2023-04-28] MEDS: APIXABAN 5 MG TAB PO SCH (08:35)
[2023-04-28] MEDS: METOPROLOL SUCCINATE (ER) 25 MG TAB.ER.24H PO SCH (08:35)
[2023-04-28] MEDS ORDERED: amLODIPine 5 MG TAB PO SCH (09:00)
--- NOTE | 2023-04-28 10:29 | P.PN ---
Subjective Progress Note Date: 04/28/23 History of present illness: This is an 88-year-old female patient of Dr. Calvin Jorgensen with past medical history of paroxysmal atrial fibrillation, mitral regurgitation, dyslipidemia hypothyroidism. We've been asked to evaluate the patient for syncope and new left bundle branch block. Patient states that she had passed out. She states that she took her shower she walked over to the bed and sat down and the next thing she knew she was completely out. She is unsure how long she was out. She denies having any weakness at this time. She denies having any change in her speech. No shortness of breath no chest pain, no dizziness. She states she is usually active. She states that Dr. Esquivel was evaluating her for pacemaker knee. This was not indicated in his last office note dated 03/19/2023. EKG sinus bradycardia at 56 bpm with left bundle branch block compared to old EKGs is new finding. Chest x-ray: Stable exam. Chronic lung changes without evidence of acute abnormality. CT of the brain revealed atrophy with chronic appearing periventricular white matter changes. No acute intracranial process. WBC 12.4, hemoglobin 13.6, platelet count 249. INR 1.1. Electrolytes and renal function unremarkable. Blood sugar 106. Lactic acid 2.6 followed by 1.6. Troponin negative 3. Liver function tests are normal. Urinalysis negative for infection. Influenza A, influenza B, RSV, Covid 19 not detected. Home cardiac medications: Eliquis 5 mg twice daily, atorvastatin 20 mg at bedtime, levothyroxine 125 g daily, metoprolol succinate 12.5 mg daily 04/28 Patient is seen today in follow-up. She denies any lightheadedness or syncope episodes. Telemetry showed no arrhythmias. Heart rate is running in the 50s and 60s, blood pressure elevated at 190/77. Echocardiogram reveals normal left ventricle size and systolic function. Moderate to severe mitral regurgitation. Moderate tricuspid regurgitation and mild pulmonary hypertension. Physical examination: Gen: This is an 88-year-old female. She is resting in bed and appears to be comfortable and in no acute distress. VS: reviewed HEENT: Head is atraumatic, normocephalic. Pupils equal, round. Sclerae is anicteric. NECK: Supple. No JVD. LUNGS: Clear to auscultation. No wheezes or rhonchi. No intercostal retractions. HEART: Regular rate and rhythm. 2/6 systolic murmur. ABDOMEN: Soft No tenderness. EXTREMITIES: No pedal edema. No calf tenderness. NEUROLOGICAL: Patient is awake, alert and oriented x3. Assessment: Syncopal episode rule out orthostatic hypotension, AV block, arrhythmia Paroxysmal atrial fibrillation Mitral regurgitation Dyslipidemia Hypothyroidism Severe mitral regurgitation Plan: Continue patient's home cardiac medications Add amlodipine 5 mg daily Continue telemetry monitoring Patient is cleared for discharge from cardiology and may follow-up with Dr. Calvin Jorgensen in the office and at that time will be considered for event monitor or loop recorder. Cardiology will sign off this case and follow on an as-needed basis. Please reconsult for any new concerns. Nurse practitioner note has been reviewed, I agree with documented findings and plan of care. Patient was seen and examined. Objective - Vital Signs Vital signs: Vital Signs Temp 98.2 F 04/28/23 03:11 Pulse 68 04/28/23 03:11 Resp 17 04/28/23 03:11 BP 182/82 04/28/23 03:11 Pulse Ox 94 L 04/28/23 03:11 FiO2 Intake & Output 04/27/23 04/28/23 04/28/23 18:59 06:59 18:59 Intake Total 356 Balance 356 Weight 90.718 kg Intake: Oral 356 Other: Voiding Method Toilet Toilet # Voids 1 - Labs CBC & Chem 7: 04/27/23 05:53 04/27/23 05:53 Labs: Abnormal Lab Results - Last 24 Hours (Table) 04/27/23 04/27/23 Range/Units 05:53 05:53 WBC 12.41 H (4.50-10.00) X 10*3/uL MCHC 31.9 L (32.0-37.0) d/dL Neutrophils # 7.90 H (1.80-7.70) X 10*3/uL Monocytes # 1.12 H (0.20-1.00) X 10*3/uL Chloride 111 H (96-109) mmol/L BUN/Creatinine Ratio 20.86 H (12.00-20.00) Ratio
[2023-04-28 11:06] VITALS: BP 132/78; PULSE 72
--- NOTE | 2023-04-28 20:13 | P.DS ---
Providers Date of admission: 04/26/23 12:53 Expected date of discharge: 04/28/23 Attending physician: Jeff Ness Consults: 04/26/23 13:57 Consult Physician Routine Consulting Provider: [facility] Consult Reason/Comments: syncope, new LBBB Do you want consulting provider notified?: Yes Primary care physician: [facility] Course: 88-year-old female with PMH of atrial fibrillation, dyslipidemia, hypothyroidism presents the ED after syncopal episode. Patient reports taking a shower, walking back and sitting down when she apparently had a syncopal episode. She denies any prodrome prior to her syncope. She denies any episode of shaking, bladder or bowel incontinence. She denies any postictal confusion. She denies any chest pain, shortness breath or palpitations. Currently feeling at baseline. April 27: I assumed care of the patient today. Daughter the bedside. Patient been up to the bathroom. Eating fair. Her fever no chills. Often likes to lie down. Discussed with her daughter were deconditioning. 2-D echo was done. Cardiology will review office records then go from there. April 28: Patient is stable. Daughter is at bedside. Cleared by cardiac for discharge. Amlodipine has been added for blood pressure. Patient follow-up with Dr. Calvin Esquivel. In the ED, she underwent extensive evaluation. CBC showed hematocrit 47.7 Coagulation panel within normal limits CMP showed glucose 106 Lactic acid 2.6 Troponin less than 0.012. Magnesium 2.0. Urinalysis trace protein. Influenza, COVID-19, RSV negative. EKG showed sinus bradycardia with left bundle branch block. CT brain negative for acute pathology. Chest x-ray negative for acute pathology. On examination: VITAL SIGNS: 97.5, 72, 16, 132/78 GENERAL APPEARANCE: Laying in bed, comfortable HEENT: Normal external appearance of nose and ear. Oral cavity normal EYES: Pupils equal. Conjunctiva normal. NECK: JVD not raised. Mass not palpable. RESPIRATORY: Respiratory effort normal. Lungs clear to auscultation. CARDIOVASCULAR: First and second sounds normal. No edema. ABDOMEN: Soft. Liver and spleen not palpable. No tenderness. No mass palpable. PSYCHIATRY: Able to answer simple questions. Assessment and plan: Syncope Lactic acidosis LBBB Chronic conditions: Paroxysmal atrial fibrillation, dyslipidemia, hypothyroidism Deconditioning Essential hypertension Disposition: Home Plan - Discharge Summary New Discharge Prescriptions: New amLODIPine [Norvasc] 5 mg PO DAILY #30 tab Continue Cholecalciferol [Vitamin D3 (25 Mcg = 1000 Iu)] 25 mcg PO DAILY Vit C/E/Zn/Coppr/Lutein/Zeaxan [Preservision Areds 2 Softgel] 1 cap PO BID Docusate [Colace] 100 mg PO BID Acetaminophen [Tylenol] 650 mg PO Q6H PRN PRN Reason: Pain Or Fever > 100.5 Metoprolol Succinate [Metoprolol Succinate ER] 12.5 mg PO DAILY Raloxifene HCl 60 mg PO DAILY Atorvastatin [Lipitor] 20 mg PO HS Apixaban [Eliquis] 5 mg PO BID Melatonin 5 mg PO HS Levothyroxine Sodium [Synthroid] 125 mcg PO AC-BRKFST Discharge Medication List Apixaban [Eliquis] 5 mg PO BID 06/21/21 [History] Atorvastatin [Lipitor] 20 mg PO HS 06/21/21 [History] Cholecalciferol [Vitamin D3 (25 Mcg = 1000 Iu)] 25 mcg PO DAILY 06/21/21 [History] Raloxifene HCl 60 mg PO DAILY 06/21/21 [History] Vit C/E/Zn/Coppr/Lutein/Zeaxan [Preservision Areds 2 Softgel] 1 cap PO BID 06/21/21 [History] Docusate [Colace] 100 mg PO BID 11/22/21 [History] Acetaminophen [Tylenol] 650 mg PO Q6H PRN 04/26/23 [History] Levothyroxine Sodium [Synthroid] 125 mcg PO AC-BRKFST 04/26/23 [History] Melatonin 5 mg PO HS 04/26/23 [History] Metoprolol Succinate [Metoprolol Succinate ER] 12.5 mg PO DAILY 04/26/23 [History] amLODIPine [Norvasc] 5 mg PO DAILY #30 tab 04/28/23 [Rx] Follow up Appointment(s)/Referral(s): Niko Anne MD [Primary Care Provider] - 1-2 days Juan Jorgensen MD [STAFF PHYSICIAN] - 05/01/23 1:30 pm Patient Instructions/Handouts: Syncope (DC) Discharge Disposition: HOME SELF-CARE
== END 2023-04-28 12:38 | disposition home or self-care (01) ==
LOC: EC 10:04 → 6NMEDSUR 12:53
PROVIDERS: ADMIT Hospitalist; ATTEND Hospitalist
DX: R55 Syncope and collapse (principal); I44.7 Left bundle-branch block, unspecified; I48.0 Paroxysmal atrial fibrillation; I25.10 Atherosclerotic heart disease of native coronary artery without angina pectoris; I10 Essential (primary) hypertension; E78.5 Hyperlipidemia, unspecified; E03.9 Hypothyroidism, unspecified; I08.1 Rheumatic disorders of both mitral and tricuspid valves; E87.20 Acidosis, unspecified; Z20.822 Contact with and (suspected) exposure to COVID-19; Z66 Do not resuscitate; Z86.16 Personal history of COVID-19; Z87.891 Personal history of nicotine dependence; Z79.01 Long term (current) use of anticoagulants; Z79.899 Other long term (current) drug therapy; Z79.890 Hormone replacement therapy; Z79.82 Long term (current) use of aspirin; Z82.49 Family history of ischemic heart disease and other diseases of the circulatory system
CPT/HCPCS: 96361 ×2; 96360; 99285; 36415; 93005; 93306; 80053; 80048; 83605; 83735; 84484; 85025 ×2; 85610; 85730; 81003; 87636; 71046; 70450; G0378 ×3

== ENCOUNTER 2023-11-28 11:22 | Emergency (ER) | payer MEDICARE ==
[2023-11-28 11:44] VITALS: RESP 18
--- NOTE | 2023-11-28 11:54 | ED ---
General Adult HPI - General Chief complaint: Dizziness Stated complaint: Dizziness Time Seen by Provider: 11/28/23 11:35 Source: patient, EMS, RN notes reviewed, old records reviewed Mode of arrival: EMS Limitations: no limitations, altered mental status (Patient is a very poor historian and cannot even remember if she took any medications today and does not know any single one of her medications) - History of Present Illness Initial comments: This is an 88-year-old female who presents to the emergency department because of dizziness and when EMS arrived she was very tachycardic. Patient has a history of atrial fibrillation and a left bundle branch block. Patient denies having any symptoms currently. Patient denies headache patient denies numbness weakness. Patient has any dizziness currently. Patient denies any chest pain palpitation difficulty breathing shortness of breath. Patient has any recent fever chills or cough or patient has any abdominal pain patient has nausea vomiting diarrhea. - Related Data Home Medications Medication Instructions Recorded Confirmed Apixaban [Eliquis] 5 mg PO BID@0800,199906/21/21 11/28/23 Atorvastatin [Lipitor] 20 mg PO HS@199906/21/21 11/28/23 Cholecalciferol [Vitamin D3 (25 25 mcg PO DAILY@0800 06/21/21 11/28/23 Mcg = 1000 Iu)] Raloxifene HCl 60 mg PO DAILY@0800 06/21/21 11/28/23 Vit C/E/Zn/Coppr/Lutein/Zeaxan 1 cap PO BID@0800,199906/21/21 11/28/23 [Preservision Areds 2 Softgel] Docusate [Colace] 100 mg PO BID@0800,199911/22/21 11/28/23 Acetaminophen [Tylenol] 650 mg PO Q6H PRN 04/26/23 11/28/23 Levothyroxine Sodium [Synthroid] 125 mcg PO DAILY@0700 04/26/23 11/28/23 Melatonin 5 mg PO HS@199904/26/23 11/28/23 Metoprolol Succinate [Metoprolol 12.5 mg PO DAILY@0800 04/26/23 11/28/23 Succinate ER] Chlorhexidine Gluconate [Peridex] 1 ml PO BID@0800,199911/28/23 11/28/23 Cyanocobalamin (Vitamin B-12) 1,000 mcg PO DAILY@0800 11/28/23 11/28/23 [Vitamin B-12] amLODIPine [Norvasc] 5 mg PO DAILY@0800 11/28/23 11/28/23 Allergies Allergy/AdvReac Type Severity Reaction Status Date / Time No Known Allergies Allergy Verified 11/28/23 11:47 Review of Systems ROS Statement: Those systems with pertinent positive or pertinent negative responses have been documented in the HPI. ROS Other: All systems not noted in ROS Statement are negative. Past Medical History Past Medical History: Atrial Fibrillation, Coronary Artery Disease (CAD), Hypertension, Thyroid Disorder History of Any Multi-Drug Resistant Organisms: None Reported Past Surgical History: Joint Replacement Additional Past Surgical History / Comment(s): bilateral Knee replacement Past Anesthesia/Blood Transfusion Reactions: No Reported Reaction Past Psychological History: No Psychological Hx Reported Smoking Status: Former smoker Past Alcohol Use History: Daily Past Drug Use History: None Reported - Past Family History Father Family Medical History: Coronary Artery Disease (CAD) General Exam - General Exam Comments Initial Comments: GENERAL: Patient is well-developed and well-nourished. Patient is nontoxic and well- hydrated and is in mild distress. ENT: Neck is soft and supple. No significant lymphadenopathy is noted. Oropharynx is clear. Moist mucous membranes. Neck has full range of motion without eliciting any pain. EYES: The sclera were anicteric and conjunctiva were pink and moist. Extraocular movements were intact and pupils were equal round and reactive to light. Eyelids were unremarkable. PULMONARY: Unlabored respirations. Good breath sounds bilaterally. No audible rales rhonchi or wheezing was noted. CARDIOVASCULAR: Patient is tachycardic at about 150 beats a minute ABDOMEN: Soft and nontender with normal bowel sounds. SKIN: Skin is clear with no lesions or rashes and otherwise unremarkable. NEUROLOGIC: Patient is alert and oriented x 2. Cranial nerves II through XII are grossly intact. Motor and sensory are also intact. Normal speech, volume and content. Symmetrical smile. MUSCULOSKELETAL: Normal extremities with adequate strength and full range of motion. No lower extremity swelling or edema. No calf tenderness. LYMPHATICS: No significant lymphadenopathy is noted PSYCHIATRIC: Normal psychiatric evaluation. Limitations: no limitations Course Vital Signs 11/28/23 11/28/23 11/28/23 11:24 12:01 13:17 Temperature 97.5 F L Pulse Rate 58 L Respiratory 18 18 Rate Blood Pressure 141/99 131/73 O2 Sat by Pulse 92 L 91 L 94 L Oximetry Medical Decision Making - Medical Decision Making EKG is interpreted by myself. EKG shows atrial fibrillation with rapid ventricular response at 147 bpm QRS is 133 QT interval 304 QTc is 388. A second EKG was done because patient converted to normal sinus rhythm on her own. Patient's EKG shows sinus rhythm at 62 bpm SD interval 169 QRS 137 QT interval is 435 QTc is 439. Patient's EKG shows a left bundle branch block. Was pt. sent in by a medical professional or institution (, PA, ORNAMENT SETTER, urgent care, hospital, or [place] [facility]...) When possible be specific @ -No Did you speak to anyone other than the patient for history (EMS, parent, family, police, friend...)? What history was obtained from this source @ -EMS gave us most history because the patient has baseline dementia Did you review nursing and triage notes (agree or disagree)? Why? @ -I reviewed and agree with nursing and triage notes Were old charts reviewed (outside hosp., previous admission, EMS record, old EKG, old radiological studies, urgent care reports/EKG's, [place] [facility] records)? Report findings @ -No old charts were reviewed Differential Diagnosis (chest pain, altered mental status, abdominal pain women, abdominal pain men, vaginal bleeding, weakness, fever, dyspnea, syncope, headache, dizziness, GI bleed, back pain, seizure, CVA, palpatations, mental health, musculoskeletal)? @ -Differential Dizziness: Benign paroxysmal positional Vertigo, Menieres disease, otitis media, acoustic neuroma, vertebrobasilar insufficiency, cerebellar stroke, encephalitis, hypovolemic, arrhythmia, coronary artery syndrome, anemia, this is not meant to be an all-inclusive list EKG interpreted by me (3pts min.). @ -As above X-rays interpreted by me (1pt min.). @ -None done CT interpreted by me (1pt min.). @ -None done U/S interpreted by me (1pt. min.). @ -None done What testing was considered but not performed or refused? (CT, X-rays, U/S, labs)? Why? @ -None What meds were considered but not given or refused? Why? @ -None Did you discuss the management of the patient with other professionals (professionals i.e. DrDeandre, PA, ORNAMENT SETTER, lab, RT, psych nurse, social worker psychiatric, corporation lawyer, teacher, army officer, dependency case manager)? Give summary @ -No Was smoking cessation discussed for >3mins.? @ -No Was critical care preformed (if so, how long)? @ -No Were there social determinants of health that impacted care today? How? (Homelessness, low income, unemployed, alcoholism, drug addiction, transportation, low edu. Level, literacy, decrease access to med. care, prison, rehab)? @ -No Was there de-escalation of care discussed even if they declined (Discuss DNR or withdrawal of care, Hospice)? DNR status @ -No What co-morbidities impacted this encounter? (DM, HTN, Smoking, COPD, CAD, Cancer, CVA, ARF, Chemo, Hep., AIDS, mental health diagnosis, sleep apnea, morbid obesity)? @ -None Was patient admitted / discharged? Hospital course, mention meds given and route, prescriptions, significant lab abnormalities, going to OR and other pertinent info. @ -Patient was initially going to get Cardizem but she converted prior to getting the Cardizem so no Cardizem was given. Patient remained in normal sinus rhythm throughout her ED course. Patient had no symptoms throughout her ED course. Patient ambulated without problem and no symptoms arose. Son came into the room later and I spoke with him and he stated that the patient just prior to arrival took her metoprolol and he thinks that was a little after 10:00 in the morning. Undiagnosed new problem with uncertain prognosis? @ -No Drug Therapy requiring intensive monitoring for toxicity (Heparin, Nitro, Insulin, Cardizem)? @ -No Were any procedures done? @ -No Diagnosis/symptom? @ -A-fib with rapid ventricular response Acute, or Chronic, or Acute on Chronic? @ -Acute Uncomplicated (without systemic symptoms) or Complicated (systemic symptoms)? @ -Complicated Side effects of treatment? @ -No Exacerbation, Progression, or Severe Exacerbation? @ -No Poses a threat to life or bodily function? How? (Chest pain, USA, NC, pneumonia, PE, COPD, DKA, ARF, appy, cholecystitis, CVA, Diverticulitis, Homicidal, Suicidal, threat to staff... and all critical care pts) @ -No - Lab Data Result diagrams: 11/28/23 11:55 11/28/23 11:55 Lab Results 11/28/23 11/28/23 11/28/23 Range/Units 11:55 11:55 11:55 WBC 9.6 (3.8-10.6) k/uL RBC 5.18 (3.80-5.40) m/uL Hgb 15.8 (11.4-16.0) gm/dL Hct 48.6 H (34.0-46.0) % MCV 93.8 (80.0-100.0) fL MCH 30.5 (25.0-35.0) pg MCHC 32.5 (31.0-37.0) g/dL RDW 13.4 (11.5-15.5) % Plt Count 288 (150-450) k/uL MPV 9.3 Neutrophils % 62 % Lymphocytes % 25 % Monocytes % 6 % Eosinophils % 4 % Basophils % 1 % Neutrophils # 5.9 (1.3-7.7) k/uL Lymphocytes # 2.4 (1.0-4.8) k/uL Monocytes # 0.6 (0-1.0) k/uL Eosinophils # 0.4 (0-0.7) k/uL Basophils # 0.1 (0-0.2) k/uL PT 11.7 (10.0-12.5) sec INR 1.1 (<1.2) APTT 27.4 (22.0-30.0) sec Sodium 139 (137-145) mmol/L Potassium 4.1 (3.5-5.1) mmol/L Chloride 107 (98-107) mmol/L Carbon Dioxide 26 (22-30) mmol/L Anion Gap 6 mmol/L BUN 17 (7-17) mg/dL Creatinine 0.78 (0.52-1.04) mg/dL Est GFR (CKD-EPI)AfAm 78 (>60 ml/min/1.73 sqM) Est GFR (CKD-EPI)NonAf 68 (>60 ml/min/1.73 sqM) Glucose 145 H (74-99) mg/dL Calcium 9.2 (8.4-10.2) mg/dL Magnesium 2.0 (1.6-2.3) mg/dL Total Bilirubin 0.7 (0.2-1.3) mg/dL AST 30 (14-36) U/L ALT 17 (4-34) U/L Alkaline Phosphatase 84 (38-126) U/L Troponin I (0.000-0.034) ng/mL Total Protein 6.7 (6.3-8.2) g/dL Albumin 4.1 (3.5-5.0) g/dL 11/28/23 Range/Units 11:55 WBC (3.8-10.6) k/uL RBC (3.80-5.40) m/uL Hgb (11.4-16.0) gm/dL Hct (34.0-46.0) % MCV (80.0-100.0) fL MCH (25.0-35.0) pg MCHC (31.0-37.0) g/dL RDW (11.5-15.5) % Plt Count (150-450) k/uL MPV Neutrophils % % Lymphocytes % % Monocytes % % Eosinophils % % Basophils % % Neutrophils # (1.3-7.7) k/uL Lymphocytes # (1.0-4.8) k/uL Monocytes # (0-1.0) k/uL Eosinophils # (0-0.7) k/uL Basophils # (0-0.2) k/uL PT (10.0-12.5) sec INR (<1.2) APTT (22.0-30.0) sec Sodium (137-145) mmol/L Potassium (3.5-5.1) mmol/L Chloride (98-107) mmol/L Carbon Dioxide (22-30) mmol/L Anion Gap mmol/L BUN (7-17) mg/dL Creatinine (0.52-1.04) mg/dL Est GFR (CKD-EPI)AfAm (>60 ml/min/1.73 sqM) Est GFR (CKD-EPI)NonAf (>60 ml/min/1.73 sqM) Glucose (74-99) mg/dL Calcium (8.4-10.2) mg/dL Magnesium (1.6-2.3) mg/dL Total Bilirubin (0.2-1.3) mg/dL AST (14-36) U/L ALT (4-34) U/L Alkaline Phosphatase (38-126) U/L Troponin I <0.012 (0.000-0.034) ng/mL Total Protein (6.3-8.2) g/dL Albumin (3.5-5.0) g/dL Disposition Clinical Impression: Atrial fibrillation with rapid ventricular response Disposition: HOME SELF-CARE Condition: Good Instructions (If sedation given, give patient instructions): A-fib (Atrial Fibrillation) (ED) Is patient prescribed a controlled substance at d/c from ED?: No Referrals: Niko Anne MD [Primary Care Provider] - 1-2 days Time of Disposition: 14:03
[2023-11-28] MEDS: SODIUM CHLORIDE 0.9% 500 ML 500 ML IV STA (12:00)
[2023-11-28 12:03] LABS: Basophils # (A) 0.1 k/uL (0-0.2); Basophils % (A) 1 %; Eosinophils # (A) 0.4 k/uL (0-0.7); Eosinophils % (A) 4 %; HCT 48.6 % (34.0-46.0); HGB 15.8 gm/dL (11.4-16.0); Lymphocytes # (A) 2.4 k/uL (1.0-4.8); Lymphocytes % (A) 25 %; MCH 30.5 pg (25.0-35.0); MCHC 32.5 g/dL (31.0-37.0); MCV 93.8 fL (80.0-100.0); Mean Platelet Volume 9.3; Monocytes # (A) 0.6 k/uL (0-1.0); Monocytes % (A) 6 %; Neutrophils # (A) 5.9 k/uL (1.3-7.7); Neutrophils % (A) 62 %; Platelet Count 288 k/uL (150-450); RBC 5.18 m/uL (3.80-5.40); RDW 13.4 % (11.5-15.5); WBC 9.6 k/uL (3.8-10.6)
[2023-11-28 12:20] LABS: ALT 17 U/L (4-34); AST 30 U/L (14-36); African American GFR (CKD) 78 (>60 ml/min/1.73 sqM); Albumin 4.1 g/dL (3.5-5.0); Alkaline Phosphatase 84 U/L (38-126); Anion Gap 6 mmol/L; Blood Urea Nitrogen 17 mg/dL (7-17); Calcium 9.2 mg/dL (8.4-10.2); Carbon Dioxide 26 mmol/L (22-30); Chloride 107 mmol/L (98-107); Glucose 145 mg/dL (74-99); INR 1.1 (<1.2); Non-African American GFR(CKD) 68 (>60 ml/min/1.73 sqM); Partial Thromboplastin Time 27.4 sec (22.0-30.0); Potassium 4.1 mmol/L (3.5-5.1); Prothrombin Time 11.7 sec (10.0-12.5); Sodium 139 mmol/L (137-145); Total Bilirubin 0.7 mg/dL (0.2-1.3); Total Protein 6.7 g/dL (6.3-8.2)
[2023-11-28] MEDS: DILTIAZEM 125 MG in SODIUM CHLORIDE 0.9% 100 ML IV SCH (12:43)
[2023-11-28] MEDS: DILTIAZEM DRIP BOLUS FROM BAG 1 MG SOLN IV ONE (12:44)
--- NOTE | 2023-11-28 13:10 | XR ---
EXAMINATION TYPE: XR chest 2V DATE OF EXAM: 11/28/2023 COMPARISON: 04/26/2023 HISTORY: Dysrhythmia TECHNIQUE: Frontal and lateral views of the chest are obtained. FINDINGS: There is no focal air space opacity, pleural effusion, or pneumothorax seen. The cardiac silhouette size is within normal limits. The osseous structures are intact. IMPRESSION: No acute cardiopulmonary process.
[2023-11-28 14:59] VITALS: BP 144/68; PULSE 54; TEMP 98.1
== END 2023-11-28 14:17 | disposition home or self-care (01) ==
LOC: EC 11:22
DX: I48.91 Unspecified atrial fibrillation (principal); Z79.01 Long term (current) use of anticoagulants; Z87.891 Personal history of nicotine dependence
CPT/HCPCS: 36415; 71046; 80053; 83735; 84484; 85025; 85610; 85730; 93005; 99285

== ENCOUNTER 2023-12-08 13:38 | Inpatient (IN) | payer MEDICARE ==
--- NOTE | 2023-12-08 13:58 | ED ---
General Adult HPI - General Chief complaint: Neuro Symptoms/Deficit Stated complaint: Poss TIA Time Seen by Provider: 12/08/23 13:50 Source: patient, EMS, RN notes reviewed, old records reviewed Mode of arrival: EMS Limitations: altered mental status - History of Present Illness Initial comments: This is an 88-year-old female with past medical history significant atrial fibrillation. Patient was sent in because people at her assisted living facility because she was having some facial droop on the left and some right hand weakness. When EMS got there she had no symptoms whatsoever she had no complaints other than feeling tired. Patient states she does drink a alcoholic beverage every day. But only 1. Patient denies any chest pain or palpitations. Patient denies any recent fever chills or cough. Patient only complaint currently is weakness. Patient denies any focal weakness. - Related Data Home Medications Medication Instructions Recorded Confirmed Apixaban [Eliquis] 5 mg PO BID@0800,199906/21/21 12/08/23 Atorvastatin [Lipitor] 20 mg PO HS@199906/21/21 12/08/23 Cholecalciferol [Vitamin D3 (25 25 mcg PO DAILY@0806/21/21 12/08/23 Mcg = 1000 Iu)] Raloxifene HCl 60 mg PO DAILY@0806/21/21 12/08/23 Vit C/E/Zn/Coppr/Lutein/Zeaxan 1 cap PO BID@0800,199906/21/21 12/08/23 [Preservision Areds 2 Softgel] Docusate [Colace] 100 mg PO BID@08,199911/22/21 12/08/23 Acetaminophen [Tylenol] 650 mg PO Q6H PRN 04/26/23 12/08/23 Levothyroxine Sodium [Synthroid] 125 mcg PO DAILY@00 04/26/23 12/08/23 Melatonin 5 mg PO HS@199904/26/23 12/08/23 Metoprolol Succinate [Metoprolol 12.5 mg PO DAILY@00 04/26/23 12/08/23 Succinate ER] Chlorhexidine Gluconate [Peridex] 1 ml PO BID@08,199911/28/23 12/08/23 Cyanocobalamin (Vitamin B-12) 1,000 mcg PO DAILY@00 11/28/23 12/08/23 [Vitamin B-12] amLODIPine [Norvasc] 5 mg PO DAILY@0800 11/28/23 12/08/23 Allergies Allergy/AdvReac Type Severity Reaction Status Date / Time No Known Allergies Allergy Verified 12/08/23 14:26 Review of Systems ROS Statement: Those systems with pertinent positive or pertinent negative responses have been documented in the HPI. ROS Other: All systems not noted in ROS Statement are negative. Past Medical History Past Medical History: Atrial Fibrillation, Coronary Artery Disease (CAD), Hypertension, Thyroid Disorder History of Any Multi-Drug Resistant Organisms: None Reported Past Surgical History: Joint Replacement Additional Past Surgical History / Comment(s): bilateral Knee replacement Past Anesthesia/Blood Transfusion Reactions: No Reported Reaction Past Psychological History: No Psychological Hx Reported Smoking Status: Former smoker Past Alcohol Use History: Daily Past Drug Use History: None Reported - Past Family History Father Family Medical History: Coronary Artery Disease (CAD) General Exam - General Exam Comments Initial Comments: GENERAL: Patient is well-developed and well-nourished. Patient is nontoxic and well- hydrated and is in mild distress. ENT: Neck is soft and supple. No significant lymphadenopathy is noted. Oropharynx is clear. Moist mucous membranes. Neck has full range of motion without eliciting any pain. EYES: The sclera were anicteric and conjunctiva were pink and moist. Extraocular movements were intact and pupils were equal round and reactive to light. Eyelids were unremarkable. PULMONARY: Unlabored respirations. Good breath sounds bilaterally. No audible rales rhonchi or wheezing was noted. CARDIOVASCULAR: Tachycardic at 150 beats a minute and is irregular ABDOMEN: Soft and nontender with normal bowel sounds. SKIN: Skin is clear with no lesions or rashes and otherwise unremarkable. NEUROLOGIC: Patient is alert and oriented x3. Cranial nerves II through XII are grossly intact. Motor and sensory are also intact. Normal speech, volume and content. Symmetrical smile. MUSCULOSKELETAL: Normal extremities with adequate strength and full range of motion. No lower extremity swelling or edema. No calf tenderness. LYMPHATICS: No significant lymphadenopathy is noted PSYCHIATRIC: Normal psychiatric evaluation. Limitations: altered mental status Course Vital Signs 12/08/23 12/08/23 12/08/23 13:48 14:27 14:30 Temperature 97.0 F L Pulse Rate 160 H 154 H 115 H Respiratory 20 18 18 Rate Blood Pressure 104/79 111/81 103/74 O2 Sat by Pulse 90 L 93 L 95 Oximetry 12/08/23 12/08/23 12/08/23 14:45 15:37 15:50 Temperature Pulse Rate 124 H 152 H 144 H Respiratory 18 18 18 Rate Blood Pressure 102/70 84/64 114/87 O2 Sat by Pulse 94 L 93 L 96 Oximetry Medical Decision Making - Medical Decision Making EKG is interpreted by myself. EKG shows A-fib with rapid ventricular response at 155 bpm QRS is 132 QT interval 302 QTc is 389. Patient's EKG has a left bundle branch block Was pt. sent in by a medical professional or institution (, PA, DITCH REPAIRER, urgent care, hospital, or fpc...) When possible be specific @ -No Did you speak to anyone other than the patient for history (EMS, parent, family, police, friend...)? What history was obtained from this source @ -EMS gave all of the history Did you review nursing and triage notes (agree or disagree)? Why? @ -I reviewed and agree with nursing and triage notes Were old charts reviewed (outside hosp., previous admission, EMS record, old EKG, old radiological studies, urgent care reports/EKG's, [facility]pc records)? Report findings @ -No old charts were reviewed Differential Diagnosis (chest pain, altered mental status, abdominal pain women, abdominal pain men, vaginal bleeding, weakness, fever, dyspnea, syncope, headache, dizziness, GI bleed, back pain, seizure, CVA, palpatations, mental health, musculoskeletal)? @ -Differential Weakness: Hypoglycemia, shock, sepsis, hyponatremia, anemia, infection, HI, ETOH, adverse medicine reaction, overdose, stroke, this is not meant to be an all-inclusive list. EKG interpreted by me (3pts min.). @ -As above X-rays interpreted by me (1pt min.). @ -Chest x-ray shows no acute abnormality CT interpreted by me (1pt min.). @ -None done U/S interpreted by me (1pt. min.). @ -None done What testing was considered but not performed or refused? (CT, X-rays, U/S, labs)? Why? @ -None What meds were considered but not given or refused? Why? @ -None Did you discuss the management of the patient with other professionals (professionals i.e. DrDeandre, PA, DITCH REPAIRER, lab, RT, psych nurse, high school social studies teacher, deck steward, teacher, alumni relations officer, pillowcase turner)? Give summary @ -I spoke with Dr. Ness agreed to admit the patient admit the patient wrote admitting orders. Was smoking cessation discussed for >3mins.? @ -No Was critical care preformed (if so, how long)? @ -35 minutes Were there social determinants of health that impacted care today? How? (Homelessness, low income, unemployed, alcoholism, drug addiction, transportation, low edu. Level, literacy, decrease access to med. care, long term, rehab)? @ -No Was there de-escalation of care discussed even if they declined (Discuss DNR or withdrawal of care, Hospice)? DNR status @ -No What co-morbidities impacted this encounter? (DM, HTN, Smoking, COPD, CAD, Cancer, CVA, ARF, Chemo, Hep., AIDS, mental health diagnosis, sleep apnea, morbid obesity)? @ -None Was patient admitted / discharged? Hospital course, mention meds given and route, prescriptions, significant lab abnormalities, going to OR and other p ertinent info. @ -Patient was started on Cardizem after I gave Cardizem bolus. Patient was also given a bolus of normal saline.I will restart the patient's med and patient is on a blood thinner I will restart that as well. Undiagnosed new problem with uncertain prognosis? @ -No Drug Therapy requiring intensive monitoring for toxicity (Heparin, Nitro, Insulin, Cardizem)? @ -No Were any procedures done? @ -No Diagnosis/symptom? @ -A-fib with rapid ventricular response Acute, or Chronic, or Acute on Chronic? @ -Acute Uncomplicated (without systemic symptoms) or Complicated (systemic symptoms)? @ -Complicated Side effects of treatment? @ -No Exacerbation, Progression, or Severe Exacerbation? @ -No Poses a threat to life or bodily function? How? (Chest pain, USA, [place], pneumonia, PE, COPD, DKA, ARF, appy, cholecystitis, CVA, Diverticulitis, Homicidal, Suicidal, threat to staff... and all critical care pts) @ -Yes this can lead to poor perfusion and endorgan dysfunction - Lab Data Result diagrams: 12/08/23 13:53 12/08/23 13:53 Lab Results 12/08/23 12/08/23 12/08/23 Range/Units 13:53 13:53 13:53 WBC 10.9 H (3.8-10.6) k/uL RBC 5.23 (3.80-5.40) m/uL Hgb 15.8 (11.4-16.0) gm/dL Hct 50.0 H (34.0-46.0) % MCV 95.6 (80.0-100.0) fL MCH 30.2 (25.0-35.0) pg MCHC 31.6 (31.0-37.0) g/dL RDW 13.5 (11.5-15.5) % Plt Count 318 (150-450) k/uL MPV 9.1 Neutrophils % 60 % Lymphocytes % 27 % Monocytes % 6 % Eosinophils % 4 % Basophils % 1 % Neutrophils # 6.6 (1.3-7.7) k/uL Lymphocytes # 3.0 (1.0-4.8) k/uL Monocytes # 0.7 (0-1.0) k/uL Eosinophils # 0.4 (0-0.7) k/uL Basophils # 0.1 (0-0.2) k/uL PT 11.9 (10.0-12.5) sec INR 1.1 (<1.2) APTT 26.1 (22.0-30.0) sec Sodium 137 (137-145) mmol/L Potassium 5.0 (3.5-5.1) mmol/L Chloride 109 H (98-107) mmol/L Carbon Dioxide 21 L (22-30) mmol/L Anion Gap 7 mmol/L BUN 22 H (7-17) mg/dL Creatinine 0.92 (0.52-1.04) mg/dL Est GFR (CKD-EPI)AfAm 64 (>60 ml/min/1.73 sqM) Est GFR (CKD-EPI)NonAf 56 (>60 ml/min/1.73 sqM) Glucose 165 H (74-99) mg/dL Calcium 9.5 (8.4-10.2) mg/dL Magnesium 2.0 (1.6-2.3) mg/dL Total Bilirubin 0.6 (0.2-1.3) mg/dL AST 31 (14-36) U/L ALT 17 (4-34) U/L Alkaline Phosphatase 75 (38-126) U/L Troponin I (0.000-0.034) ng/mL NT-Pro-B Natriuret Pep 5030 pg/mL Total Protein 6.4 (6.3-8.2) g/dL Albumin 3.9 (3.5-5.0) g/dL TSH 2.580 (0.465-4.680) mIU/L 12/08/23 Range/Units 13:53 WBC (3.8-10.6) k/uL RBC (3.80-5.40) m/uL Hgb (11.4-16.0) gm/dL Hct (34.0-46.0) % MCV (80.0-100.0) fL MCH (25.0-35.0) pg MCHC (31.0-37.0) g/dL RDW (11.5-15.5) % Plt Count (150-450) k/uL MPV Neutrophils % % Lymphocytes % % Monocytes % % Eosinophils % % Basophils % % Neutrophils # (1.3-7.7) k/uL Lymphocytes # (1.0-4.8) k/uL Monocytes # (0-1.0) k/uL Eosinophils # (0-0.7) k/uL Basophils # (0-0.2) k/uL PT (10.0-12.5) sec INR (<1.2) APTT (22.0-30.0) sec Sodium (137-145) mmol/L Potassium (3.5-5.1) mmol/L Chloride (98-107) mmol/L Carbon Dioxide (22-30) mmol/L Anion Gap mmol/L BUN (7-17) mg/dL Creatinine (0.52-1.04) mg/dL Est GFR (CKD-EPI)AfAm (>60 ml/min/1.73 sqM) Est GFR (CKD-EPI)NonAf (>60 ml/min/1.73 sqM) Glucose (74-99) mg/dL Calcium (8.4-10.2) mg/dL Magnesium (1.6-2.3) mg/dL Total Bilirubin (0.2-1.3) mg/dL AST (14-36) U/L ALT (4-34) U/L Alkaline Phosphatase (38-126) U/L Troponin I <0.012 (0.000-0.034) ng/mL NT-Pro-B Natriuret Pep pg/mL Total Protein (6.3-8.2) g/dL Albumin (3.5-5.0) g/dL TSH (0.465-4.680) mIU/L Critical Care Time Critical Care Time: Yes Total Critical Care Time: 35 Disposition Clinical Impression: Atrial fibrillation with rapid ventricular response Disposition: ADMITTED IP TO THIS HOSP Referrals: Niko Anne MD [Primary Care Provider] - 1-2 days Time of Disposition: 16:08
[2023-12-08] MEDS: SODIUM CHLORIDE 0.9% 500 ML 500 ML IV ONE ×2 (14:23→15:39)
[2023-12-08] MEDS: DILTIAZEM DRIP BOLUS FROM BAG 1 MG SOLN IV ONE ×2 (14:23→15:49)
[2023-12-08 14:24] LABS: Basophils # (A) 0.1 k/uL (0-0.2); Basophils % (A) 1 %; Eosinophils # (A) 0.4 k/uL (0-0.7); Eosinophils % (A) 4 %; HGB 15.8 gm/dL (11.4-16.0); Lymphocytes % (A) 27 %; MCH 30.2 pg (25.0-35.0); MCHC 31.6 g/dL (31.0-37.0); MCV 95.6 fL (80.0-100.0); Mean Platelet Volume 9.1; Monocytes # (A) 0.7 k/uL (0-1.0); Monocytes % (A) 6 %; Neutrophils # (A) 6.6 k/uL (1.3-7.7); Neutrophils % (A) 60 %; Platelet Count 318 k/uL (150-450); RBC 5.23 m/uL (3.80-5.40); RDW 13.5 % (11.5-15.5); WBC 10.9 k/uL (3.8-10.6)
[2023-12-08] MEDS: DILTIAZEM 125 MG in SODIUM CHLORIDE 0.9% 100 ML IV SCH (14:25)
[2023-12-08 14:34] LABS: INR 1.1 (<1.2); Partial Thromboplastin Time 26.1 sec (22.0-30.0); Prothrombin Time 11.9 sec (10.0-12.5)
[2023-12-08 14:36] LABS: ALT 17 U/L (4-34); AST 31 U/L (14-36); African American GFR (CKD) 64 (>60 ml/min/1.73 sqM); Albumin 3.9 g/dL (3.5-5.0); Alkaline Phosphatase 75 U/L (38-126); Anion Gap 7 mmol/L; Blood Urea Nitrogen 22 mg/dL (7-17); Calcium 9.5 mg/dL (8.4-10.2); Carbon Dioxide 21 mmol/L (22-30); Chloride 109 mmol/L (98-107); Glucose 165 mg/dL (74-99); Non-African American GFR(CKD) 56 (>60 ml/min/1.73 sqM); Sodium 137 mmol/L (137-145); Total Bilirubin 0.6 mg/dL (0.2-1.3); Total Protein 6.4 g/dL (6.3-8.2)
[2023-12-08 14:45] LABS: NT-Pro-B-Type Natriuretic Pept 5030 pg/mL
--- NOTE | 2023-12-08 15:12 | XR ---
EXAMINATION TYPE: XR chest 2V DATE OF EXAM: 12/08/2023 COMPARISON: 11/28/2023 HISTORY: Shortness of breath TECHNIQUE: Frontal and lateral views of the chest are obtained. FINDINGS: Scattered senescent parenchymal changes noted. Hyperinflation compatible with COPD. No evidence for infiltrate. No evidence for atelectasis. Heart size is stable. Mediastinal structures are stable and grossly unremarkable. No evidence for hilar prominence. Degenerative changes dorsal spine. IMPRESSION: 1. No evidence for acute pulmonary disease.
[2023-12-08] MEDS ORDERED: NITROGLYCERIN SL TABS 0.4 MG TAB SUBLINGUAL PRN (16:11)
[2023-12-08] MEDS ORDERED: ACETAMINOPHEN TAB 325 MG TAB PO PRN (16:21)
[2023-12-08] MEDS: ASPIRIN 81 MG PO STA (16:55)
[2023-12-08] MEDS: NITROGLYCERIN OINT 1 INCH/GM PACKET TOPICAL SCH (18:25)
[2023-12-08] MEDS: METOPROLOL SUCCINATE (ER) 50 MG TAB.ER.24H PO STA (18:54)
--- NOTE | 2023-12-08 19:05 | P.HPIM ---
History of Present Illness H&P Date: 12/08/23 Chief Complaint: Weak dizzy Pleasant 88-year-old female with PMH of atrial fibrillation, dyslipidemia, hypothyroidism, LBBB.,, follows with PCP Dr. Anne. Recharger Dr. Calvin Jorgensen. Lives at [place] was visited assisted living. Uses a walker at baseline's. Per the EMS report they informed the EMS that patient had been out of it all day. They noticed some facial droop and right-sided arm drift. Patient is lethargic all morning.. In the ER patient not found to have any weakness. But a heart rate of 155. Was given Cardizem bolus of 5 mg and put on a drip. Still feels tired no chest pain or palpitation. Daughter does state that heart rate has been not been easy to control by her traffic sergeant. Review of systems: GEN.: Tired EYES: None HEENT: None NECK: None RESPIRATORY: None CARDIOVASCULAR: As above GASTROINTESTINAL: None GENITOURINARY: None MUSCULOSKELETAL: Joint pains LYMPHATICS: None HEMATOLOGICAL: None PSYCHIATRY: None NEUROLOGICAL: Does use a walker Social history: Lives at [facility] assisted living. Does use a walker. Physical examination: VITAL SIGNS: [98, 157, 16, 133/80, 97% on 2 L GENERAL: BMI 34.3, reclining bed a bit tired appearing. EYES: Pupils equal. Conjunctiva amanuel l. HEENT: External appearance of nose and ears normal, oral cavity grossly normal. NECK: JVD not raised; masses not palpable. HEART: Heart is irregular l; no edema]. LUNGS: Respiratory rate normal; clear to auscultation. ABDOMEN: Soft, nontender, liver spleen not palpable, no masses palpable. PSYCH: Alert and oriented x3; mood and affect amanuel l. MUSCULOSKELETAL:No Clubbing/cyanosis;muscles-grossly intact OA NEUROLOGICAL: Cranial nerves grossly intact; no facial asymmetry, power and sensation grossly intact. LYMPHATICS: No lymph nodes palpable in the axilla and neck INVESTIGATIONS, reviewed in the clinical context: December 08, 2023: White count 10.9 hemoglobin 15.8 platelets 318 sodium 137 potassium 5 BUN 22 creatinine 0.92 Troponin I less than 0.012 proBNP 5030 TSH 2.5 EKG tracing personally reviewed by me-atrial fibrillation. Left bundle branch block. Rate 155 Chest x-ray film personally reviewed by me-cardiomegaly. Some venous prominence Assessment and plan: -Persistent atrial fibrillation now presented with rapid ventricular rate, symptomatic Cardizem drip. Eliquis Toprol-XL 50 mg twice daily -Hypothyroid Synthroid 125 -Chronic LBBB -Primary osteoarthritis specially the knees Tylenol as needed -Chronic gait dysfunction uses a walker at baseline -Hyperlipidemia Lipitor -Essential hypertension Toprol-XL milligram twice daily. Hold amlodipine -DNR Care was discussed with the patient and daughter at the bedside. Questions answered. Cardiology consulted Past Medical History Past Medical History: Atrial Fibrillation, Coronary Artery Disease (CAD), Hypertension, Thyroid Disorder History of Any Multi-Drug Resistant Organisms: None Reported Past Surgical History: Joint Replacement Additional Past Surgical History / Comment(s): bilateral Knee replacement Past Anesthesia/Blood Transfusion Reactions: No Reported Reaction Past Psychological History: No Psychological Hx Reported Smoking Status: Former smoker Past Alcohol Use History: Daily Past Drug Use History: None Reported - Past Family History Father Family Medical History: Coronary Artery Disease (CAD) Medications and Allergies Home Medications Medication Instructions Recorded Confirmed Type Apixaban [Eliquis] 5 mg PO BID@0800,199906/21/21 12/08/23 History Atorvastatin [Lipitor] 20 mg PO HS@199906/21/21 12/08/23 History Cholecalciferol [Vitamin D3 (25 25 mcg PO DAILY@0800 06/21/21 12/08/23 History Mcg = 1000 Iu)] Raloxifene HCl 60 mg PO DAILY@0800 06/21/21 12/08/23 History Vit C/E/Zn/Coppr/Lutein/Zeaxan 1 cap PO BID@0800,199906/21/21 12/08/23 History [Preservision Areds 2 Softgel] Docusate [Colace] 100 mg PO BID@0800,199911/22/21 12/08/23 History Acetaminophen [Tylenol] 650 mg PO Q6H PRN 04/26/23 12/08/23 History Levothyroxine Sodium [Synthroid] 125 mcg PO DAILY@0700 04/26/23 12/08/23 History Melatonin 5 mg PO HS@199904/26/23 12/08/23 History Metoprolol Succinate [Metoprolol 12.5 mg PO DAILY@0800 04/26/2324 History Succinate ER] Chlorhexidine Gluconate [Peridex] 1 ml PO BID@799,199911/28/23 12/08/23 Hist ory Cyanocobalamin (Vitamin B-12) 1,000 mcg PO DAILY@79911/28/23 12/08/23 History [Vitamin B-12] amLODIPine [Norvasc] 5 mg PO DAILY@79911/28/23 12/08/23 History Allergies Allergy/AdvReac Type Severity Reaction Status Date / Time No Known Allergies Allergy Verified 12/08/23 14:26 Physical Exam Vitals: Vital Signs Temp Pulse Pulse Resp BP BP Pulse Ox 12/08/23 17:13 146 H 18 117/91 96 12/08/23 16:38 98.0 F 157 H 16 133/80 97 12/08/23 15:50 144 H 18 114/87 96 12/08/23 15:37 152 H 18 84/64 93 L 12/08/23 14:45 124 H 18 102/70 94 L 12/08/23 14:30 115 H 18 103/74 95 12/08/23 14:27 154 H 18 111/81 93 L 12/08/23 13:48 97.0 F L 160 H 20 104/79 90 L Intake and Output 12/08/23 12/08/23 12/08/23 06:59 14:59 22:59 Intake Total 13.917 Balance 13.917 Intake: Intake, IV Titration 13.917 Amount Diltiazem 125 mg In 13.917 Sodium Chloride 0.9% 100 ml @ 5 MG/HR 5 mls/hr IV .Q24H [facility] Rx#:[id number] Other: Weight 90.718 kg 90.718 kg Results CBC & Chem 7: 12/08/23 13:53 12/08/23 13:53 Labs: Abnormal Lab Results - Last 24 Hours (Table) 12/08/23 12/08/23 Range/Units 13:53 13:53 WBC 10.9 H (3.8-10.6) k/uL Hct 50.0 H (34.0-46.0) % Chloride 109 H (98-107) mmol/L Carbon Dioxide 21 L (22-30) mmol/L BUN 22 H (7-17) mg/dL Glucose 165 H (74-99) mg/dL Thrombosis Risk Factor Assmnt - Choose All That Apply Each Factor Represents 1 point: Medical pt on bed rest, Obesity (BMI >25) Each Risk Factor Represents 3 Points: Age 75 years or older Thrombosis Risk Factor Assessment Total Risk Factor Score: 5 Thrombosis Risk Factor Assessment Level: High Risk
[2023-12-08] MEDS ORDERED: NON FORMULARY DRUG (Vit C/E/Zn/Coppr/Lutein/Zeaxan [Preservision Areds 2 Softgel] 1 EACH C PO SCH (20:00)
--- NOTE | 2023-12-08 20:47 | CT ---
EXAMINATION TYPE: CT brain wo con CT DLP: 1141.4 mGycm, Automated exposure control for dose reduction was used. DATE OF EXAM: 12/08/2023 7:58 PM COMPARISON: CT brain 04/26/2023, 04/19/2023. CLINICAL INDICATION:Female, 88 years old with history of AMS, ams TECHNIQUE: Brain: Axial CT images of the brain were obtained with coronal and sagittal reformats created and rev iewed. Contrast used: None. Oral contrast used: None. FINDINGS: Brain: Extra-axial spaces: No abnormal extra-axial fluid collections. Ventricular system: Within normal limits Cerebral parenchyma: No acute intraparenchymal hemorrhage or mass effect. Stable remote left banuelos radiata infarct. Confluent regions of hypoattenuation are again identified in the periventricular sub cortical white matter. Mild generalized parenchymal volume loss. Remote left basal ganglia infarct ag ain present.. Cerebellum: Unremarkable. Mass effect: No evidence of midline shift. Intracranial vasculature: unremarkable Soft tissues: Normal. Calvarium/osseous structures: No depressed skull fracture. Paranasal sinuses and mastoid air cells: Mild scattered paranasal sinus disease. Visualized orbits: Bilateral lens replacements. IMPRESSION: 1. No acute intracranial process. 2. 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 3. 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
[2023-12-08] MEDS: APIXABAN 5 MG TAB PO SCH (21:35)
[2023-12-08] MEDS: DOCUSATE 100 MG CAP PO SCH (21:35)
[2023-12-08] MEDS: ATORVASTATIN 20 MG TAB PO SCH (21:35)
[2023-12-08] MEDS: MAGNESIUM SULFATE-D5W PMX 1 GM in DEXTROSE/WATER 1 100ML.BAG IVPB SCH ×2 (21:35→23:11)
[2023-12-08] MEDS: METOPROLOL SUCCINATE (ER) 50 MG TAB.ER.24H PO SCH (21:35)
[2023-12-08] MEDS: MELATONIN 5 MG TABLET PO SCH (21:35)
[2023-12-08] MEDS: CHLORHEXIDINE GLUCONATE 15 ML CUP MUCOUS MEM SCH (22:27)
[2023-12-09] MEDS: LEVOTHYROXINE 125 MCG TAB PO SCH (06:26)
[2023-12-09] MEDS ORDERED: METOPROLOL SUCCINATE (ER) 25 MG TAB.ER.24H PO SCH (08:00)
[2023-12-09] MEDS: CYANOCOBALAMIN 500 MCG TAB PO SCH (08:50)
[2023-12-09] MEDS: CHOLECALCIFEROL 25 MCG (1000 IU) TABLET PO SCH (08:51)
[2023-12-09] MEDS: amLODIPine 5 MG TAB PO SCH (08:51)
[2023-12-09] MEDS ORDERED: ASPIRIN 325 MG TAB PO SCH (09:00)
[2023-12-09] MEDS: LORazepam 0.5 MG TAB PO STA (09:57)
--- NOTE | 2023-12-09 11:32 | P.CRDCN ---
History of Present Illness History of present illness: HISTORY OF PRESENT ILLNESS: This is a 88-year-old female with a past medical history significant for sick sinus syndrome refusing pacemaker implantation, paroxysmal atrial fibrillation, hyperlipidemia, hypothyroidism, and hypertension. Patient follows in the office with Dr. Jorgensen. We have been asked to see the patient in consultation for A-fib with RVR. Patient examined at the bedside. Patient daughter is at the bedside and providing majority of HPI. Apparently yesterday the patient had a right- sided facial droop and was feeling very weak and tired so they brought her to the hospital for further evaluation. The patient denied having any palpitations or lightheadedness. Patient was found to be in A-fib with RVR and was started on IV Cardizem. Patient's daughter states that she is still weak this morning and was unable to feed herself breakfast as she was unable to lift her arm. The patient does report having some mild shortness of breath. She denies any chest pain or pressure. During evaluation patient was in A-fib with RVR. At the end of examination, patient converted to sinus bradycardia with a heart rate in the 40s. The patient does have a known history of sick sinus syndrome. Her primary mushroom growth media mixer, Dr. Jorgensen, recommended pacemaker implantation but patient has been refusing. DIAGNOSTICS: - EKG reveals A-fib with RVR. Repeat EKG reveals sinus bradycardia with heart rate of 50. Left bundle branch block.. - Chest xray negative for acute process. - Laboratory data: WBC 10.9. Hemoglobin 15.8. Platelet count 318. Sodium 137. Potassium 5.0. BUN 22. Creatinine 0.92. Magnesium 2.0. Troponin negative x 3. proBNP 5030. TSH 2.580. - Current home cardiac medications include amlodipine 5 mg daily, Eliquis 5 mg twice a day, Lipitor 20 mg at night, metoprolol succinate 12.5 mg daily. - Most recent echocardiogram obtained in March 2023 revealed ejection fraction 55 to 60%, moderate to severe MR, moderate TR, trace AR, mild pulmonary hypert ension REVIEW OF SYSTEMS: At the time of my exam: CONSTITUTIONAL: Denies fever or chills. HEENT: Denies blurred vision, vision changes, or eye pain. Denies hemoptysis CARDIOVASCULAR: Denies chest pain. Denies orthopnea. Denies PND. Denies palpitations RESPIRATORY: Denies shortness of breath. GASTROINTESTINAL: Denies abdominal pain. Denies nausea or vomiting. HEMATOLOGIC: Denies bleeding disorders. GENITOURINARY: Denies any blood in urine. SKIN: Denies pruitis. Denies rash. PHYSICAL EXAM: VITAL SIGNS: Reviewed. GENERAL: Well-developed in no acute distress. HEENT: Head is normocephalic. Pupils are equal, round. Sclerae anicteric. Mucous membranes of the mouth are moist. Neck supple. No JVD or thyromegaly LUNGS: Respirations even and unlabored. Lungs essentially clear to auscultation bilaterally. HEART: Bradycardic. Regular rate and rhythm. S1 and S2 heard. Systolic murmur noted ABDOMEN: Soft. Nondistended. Nontender. EXTREMITIES: Normal range of motion. No clubbing or cyanosis. Peripheral pulses intact. No lower extremity edema NEUROLOGIC: Awake and alert. Oriented x 3. ASSESSMENT: Generalized weakness and fatigue Paroxysmal atrial fibrillation with RVR Sinus bradycardia Sick sinus syndrome, currently refusing pacemaker implantation Known left bundle branch block Valvular heart disease including moderate to severe MR, moderate TR, trace AR Mild pulmonary hypertension Hyperlipidemia Hypertension Hypothyroidism PLAN: No need to repeat echocardiogram Discontinue IV Cardizem Decrease metoprolol to 25 mg twice a day secondary to sinus bradycardia and history of sick sinus syndrome Her primary mushroom growth media mixer, Dr. Jorgensen, recommended pacemaker implantation but pat maricruz has been refusing. We will continue to discuss this with the patient. Continue anticoagulation with Eliquis Continue telemetry monitoring Patient to have 30-day event monitor placed prior to discharge Patient to follow-up postdischarge with Dr. Jorgensen Nurse practitioner note has been reviewed by physician. Signing provider agrees with the documented findings, assessment, and plan of care documented by [employer] as a scribe. Past Medical History Past Medical History: Atrial Fibrillation, Coronary Artery Disease (CAD), Hypertension, Thyroid Disorder History of Any Multi-Drug Resistant Organisms: None Reported Past Surgical History: Joint Replacement Additional Past Surgical History / Comment(s): bilateral Knee replacement Past Anesthesia/Blood Transfusion Reactions: No Reported Reaction Past Psychological History: No Psychological Hx Reported Smoking Status: Former smoker Past Alcohol Use History: Daily Past Drug Use History: None Reported - Past Family History Father Family Medical History: Coronary Artery Disease (CAD) Medications and Allergies Home Medications Medication Instructions Recorded Confirmed Type Apixaban [Eliquis] 5 mg PO BID@0800,199906/21/21 12/08/23 History Atorvastatin [Lipitor] 20 mg PO HS@199906/21/21 12/08/23 History Cholecalciferol [Vitamin D3 (25 25 mcg PO DAILY@0800 06/21/21 12/08/23 History Mcg = 1000 Iu)] Raloxifene HCl 60 mg PO DAILY@0800 06/21/21 12/08/23 History Vit C/E/Zn/Coppr/Lutein/Zeaxan 1 cap PO BID@0800,199906/21/21 12/08/23 History [Preservision Areds 2 Softgel] Docusate [Colace] 100 mg PO BID@08,199911/22/21 12/08/23 History Acetaminophen [Tylenol] 650 mg PO Q6H PRN 04/26/23 12/08/23 History Levothyroxine Sodium [Synthroid] 125 mcg PO DAILY@0700 04/26/23 12/08/23 History Melatonin 5 mg PO HS@199904/26/23 12/08/23 History Metoprolol Succinate [Metoprolol 12.5 mg PO DAILY@0804/26/23 12/08/23 History Succinate ER] Chlorhexidine Gluconate [Peridex] 1 ml PO BID@08,199911/28/23 12/08/23 History Cyanocobalamin (Vitamin B-12) 1,000 mcg PO DAILY@0800 11/28/23 12/08/23 History [Vitamin B-12] amLODIPine [Norvasc] 5 mg PO DAILY@0811/28/23 12/08/23 History Allergies Allergy/AdvReac Type Severity Reaction Status Date / Time No Known Allergies Allergy Verified 12/08/23 14:26 Physical Exam Vitals: Vital Signs Temp Pulse Pulse Resp BP BP Pulse Ox 12/09/23 08:53 97.5 F L 52 L 16 122/67 98 12/09/23 04:00 97.9 F 104 H 16 133/69 95 12/08/23 23:58 126 H 16 121/63 96 12/08/23 20:00 97.8 F 132 H 16 129/73 95 12/08/23 17:13 146 H 18 117/91 96 12/08/23 16:38 98.0 F 157 H 16 133/80 97 12/08/23 15:50 144 H 18 114/87 96 12/08/23 15:37 152 H 18 84/64 93 L 12/08/23 14:45 124 H 18 102/70 94 L 12/08/23 14:30 115 H 18 103/74 95 12/08/23 14:27 154 H 18 111/81 93 L 12/08/23 13:48 97.0 F L 160 H 20 104/79 90 L Intake and Output 12/08/23 12/09/23 12/09/23 22:59 06:59 14:59 Intake Total 60 211 Balance 60 211 Intake: Intake, IV Titration 60 93 Amount Diltiazem 125 mg In 93 Sodium Chloride 0.9% 100 ml @ 15 MG/HR 15 mls/hr IV .Q8H20M [facility] Rx#: [id number] Oral 118 Other: Voiding Method Bedpan Bedpan Bedpan Diaper Diaper Diaper # Voids 1 Weight 90.718 kg Results 12/08/23 13:53 12/08/23 13:53 Cardiac Enzymes 12/08/23 12/08/23 12/08/23 Range/Units 13:53 13:53 17:05 AST 31 (14-36) U/L Troponin I <0.012 <0.012 (0.000-0.034) ng/mL 12/08/23 Range/Units 20:45 AST (14-36) U/L Troponin I 0.012 (0.000-0.034) ng/mL Coagulation 12/08/23 Range/Units 13:53 PT 11.9 (10.0-12.5) sec APTT 26.1 (22.0-30.0) sec CBC 12/08/23 Range/Units 13:53 WBC 10.9 H (3.8-10.6) k/uL RBC 5.23 (3.80-5.40) m/uL Hgb 15.8 (11.4-16.0) gm/dL Hct 50.0 H (34.0-46.0) % Plt Count 318 (150-450) k/uL Comprehensive Metabolic Panel 12/08/23 Range/Units 13:53 Sodium 137 (137-145) mmol/L Potassium 5.0 (3.5-5.1) mmol/L Chloride 109 H (98-107) mmol/L Carbon Dioxide 21 L (22-30) mmol/L BUN 22 H (7-17) mg/dL Creatinine 0.92 (0.52-1.04) mg/dL Glucose 165 H (74-99) mg/dL Calcium 9.5 (8.4-10.2) mg/dL AST 31 (14-36) U/L ALT 17 (4-34) U/L Alkaline Phosphatase 75 (38-126) U/L Total Protein 6.4 (6.3-8.2) g/dL Albumin 3.9 (3.5-5.0) g/dL Current Medications Generic Name Dose Route Start Last Admin Trade Name Freq PRN Reason Stop Dose Admin Acetaminophen 650 mg 12/08/23 16:21 Acetaminophen Tab 325 Mg Tab PO Q6H PRN Pain or Fever > 100.5 Amlodipine Besylate 5 mg 12/09/23 08:00 12/09/23 08:51 Amlodipine 5 Mg Tab PO 5 mg DAILY@799 [facility] Administration Apixaban 5 mg 12/08/23 20:00 12/09/23 08:50 Apixaban 5 Mg Tab PO 5 mg BID@ [facility] Administration Protocol Atorvastatin Calcium 20 mg 12/08/23 20:00 12/08/23 21:35 Atorvastatin 20 Mg Tab PO 20 mg HS@1999 [facility] Administration Chlorhexidine Gluconate 1 ml 12/08/23 20:00 12/09/23 08:51 Chlorhexidine Gluconate 15 Ml Cup MUCOUS MEM Not Given BID@ [facility] Cholecalciferol 25 mcg 12/09/23 08:00 12/09/23 08:51 Cholecalciferol 25 Mcg (1000 Iu) Tablet PO 25 mcg DAILY@799 [facility] Administration Cyanocobalamin 1,000 mcg 12/09/23 08:00 12/09/23 08:50 Cyanocobalamin 500 Mcg Tab PO 1,000 mcg DAILY@799 [facility] Administration Docusate Sodium 100 mg 12/08/23 20:00 12/09/23 08:50 Docusate 100 Mg Cap PO 100 mg BID@ [facility] Administration Levothyroxine Sodium 125 mcg 12/09/23 07:00 12/09/23 06:26 Levothyroxine 125 Mcg Tab PO 125 mcg DAILY@0700 [facility] Administration Melatonin 5 mg 12/08/23 20:00 12/08/23 21:35 Melatonin 5 Mg Tablet PO 5 mg HS@2000 [facility] Administration Metoprolol Succinate 25 mg 12/09/23 09:00 Metoprolol Succinate (Er) 25 Mg Tab.Er.24h PO DAILY [facility] Nitroglycerin 0.4 mg 12/08/23 16:11 Nitroglycerin Sl Tabs 0.4 Mg Tab SUBLINGUAL Q5M PRN Chest Pain Raloxifene HCl 60 mg 12/09/23 08:00 Raloxifene 60 Mg Tab PO DAILY@0800 [facility] Intake and Output 12/08/23 12/09/23 12/09/23 22:59 06:59 14:59 Intake Total 13.917 60 211 Balance 13.917 60 211 Intake: Intake, IV Titration 13.917 60 93 Amount Diltiazem 125 mg In 13.7 60 93 Sodium Chloride 0.9% 100 ml @ 15 MG/HR 15 mls/hr IV .Q8H20M [facility] Rx#: [id number] Oral 118 Other: Voiding Method Bedpan Bedpan Bedpan Diaper Diaper Diaper # Voids 1 Weight 90.718 kg 12/08/23 13:53 12/08/23 13:53
[2023-12-09] MEDS: RALOXIFENE 60 MG TAB PO SCH (12:00)
[2023-12-09] MEDS: METOPROLOL SUCCINATE (ER) 25 MG TAB.ER.24H PO SCH (12:01)
--- NOTE | 2023-12-09 16:11 | P.PN ---
Progress Note - Text Progress Note Date: 12/09/23 Chief Complaint: Weak dizzy Pleasant 88-year-old female with PMH of atrial fibrillation, dyslipidemia, hypothyroidism, LBBB.,, follows with PCP Dr. Anne. State Game Protector Dr. Calvin Jorgensen. Lives at [place] was visited assisted living. Uses a walker at baseline's. Per the EMS report they informed the EMS that patient had been out of it all day. They noticed some facial droop and right-sided arm drift. Patient is lethargic all morning.. In the ER patient not found to have any weakness. But a heart rate of 155. Was given Cardizem bolus of 5 mg and put on a drip. Still feels tired no chest pain or palpitation. Daughter does state that heart rate has been not been easy to control by her car dumper operator. December 08: Patient was on Cardizem drip. Converted earlier today to sinus rhythm. Per cardiology patient has known sick sinus syndrome. Her primary car dumper operator Dr. Gauthier recommended pacemaker but patient had been refusing. Patient placed on Toprol-XL 25 today. Daughter at the bedside. Will see how patient does with that today. Active Medications Acetaminophen (Acetaminophen Tab 325 Mg Tab) 650 mg PO Q6H PRN PRN Reason: Pain or Fever > 100.5 Amlodipine Besylate (Amlodipine 5 Mg Tab) 5 mg PO DAILY@799 [facility] Last Admin: 12/09/23 08:51 Dose: 5 mg Apixaban (Apixaban 5 Mg Tab) 5 mg PO BID@ [facility]; Protocol Last Admin: 12/09/23 08:50 Dose: 5 mg Atorvastatin Calcium (Atorvastatin 20 Mg Tab) 20 mg PO HS@1999 [facility] Last Admin: 12/08/23 21:35 Dose: 20 mg Chlorhexidine Gluconate (Chlorhexidine Gluconate 15 Ml Cup) 1 ml MUCOUS MEM BID@ [facility] Last Admin: 12/09/23 08:51 Dose: Not Given Cholecalciferol (Cholecalciferol 25 Mcg (1000 Iu) Tablet) 25 mcg PO DAILY@08 [facility] Last Admin: 12/09/23 08:51 Dose: 25 mcg Cyanocobalamin (Cyanocobalamin 500 Mcg Tab) 1,000 mcg PO DAILY@799 [facility] Last Admin: 12/09/23 08:50 Dose: 1,000 mcg Docusate Sodium (Docusate 100 Mg Cap) 100 mg PO BID@799,1999 [facility] Last Admin: 12/09/23 08:50 Dose: 100 mg Levothyroxine Sodium (Levothyroxine 125 Mcg Tab) 125 mcg PO DAILY@0700 [facility] Last Admin: 12/09/23 06:26 Dose: 125 mcg Melatonin (Melatonin 5 Mg Tablet) 5 mg PO HS@1999 [facility] Last Admin: 12/08/23 21:35 Dose: 5 mg Metoprolol Succinate (Metoprolol Succinate (Er) 25 Mg Tab.Er.24h) 25 mg PO DAILY [facility] Last Admin: 12/09/23 12:01 Dose: Not Given Nitroglycerin (Nitroglycerin Sl Tabs 0.4 Mg Tab) 0.4 mg SUBLINGUAL Q5M PRN PRN Reason: Chest Pain Raloxifene HCl (Raloxifene 60 Mg Tab) 60 mg PO DAILY@08 [facility] Last Admin: 12/09/23 12:00 Dose: 60 mg Social history: Lives at [facility] living. Does use a walker. Physical examination: VITAL SIGNS: 97.5, 47, 18, 110 x 52, 97% room air GENERAL: Up in a recliner a bit tired. EYES: Pupils equal. Conjunctiva amanuel l. HEENT: External appearance of nose and ears normal, oral cavity grossly normal. NECK: JVD not raised; masses not palpable. HEART: Heart is irregular l; no edema]. LUNGS: Respiratory rate normal; clear to auscultation. ABDOMEN: Soft, nontender, liver spleen not palpable, no masses palpable. PSYCH: Alert and oriented x3; mood and affect amanuel l. MUSCULOSKELETAL:No Clubbing/cyanosis;muscles-grossly intact OA INVESTIGATIONS, reviewed in the clinical context: December 08, 2023: White count 10.9 hemoglobin 15.8 platelets 318 sodium 137 potassium 5 BUN 22 creatinine 0.92 Troponin I less than 0.012 proBNP 5030 TSH 2.5 EKG tracing personally reviewed by me-atrial fibrillation. Left bundle branch block. Rate 155 Chest x-ray film personally reviewed by me-cardiomegaly. Some venous prominence Assessment and plan: -Persistent atrial fibrillation now presented with rapid ventricular rate, symptomatic: Now sinus rhythm Cardizem drip-discontinued. Eliquis Toprol-XL 25 -Sinus bradycardia Patient has been offered pacemaker through her primary car dumper operator Dr. Jorgensen. Patient had deferred -Hypothyroid Synthroid 125 -Chronic LBBB -Primary osteoarthritis specially the knees Tylenol as needed -Chronic gait dysfunction uses a walker at baseline -Hyperlipidemia Lipitor -Essential hypertension Toprol-XL milligram twice daily. Hold amlodipine -DNR See how patient does with Toprol-XL. Telemetry. Discussed with daughter at the bedside. Past Medical History Past Medical History: Atrial Fibrillation, Coronary Artery Disease (CAD), Hypertension, Thyroid Disorder History of Any Multi-Drug Resistant Organisms: None Reported Past Surgical History: Joint Replacement Additional Past Surgical History / Comment(s): bilateral Knee replacement Past Anesthesia/Blood Transfusion Reactions: No Reported Reaction Past Psychological History: No Psychological Hx Reported Smoking Status: Former smoker Past Alcohol Use History: Daily Past Drug Use History: None Reported
[2023-12-09 20:43] LABS: LDL Cholesterol,Calculated 101.6 mg/dL (0.0-131.0)
[2023-12-09] MEDS: LORazepam 0.5 MG TAB PO PRN (22:10)
[2023-12-10 09:36] VITALS: RESP 20; TEMP 98.2
[2023-12-10 11:51] LABS: Appearance,Urine Cloudy (Clear); Bacteria,Urine Rare /hpf; Bilirubin,Urine Negative (Negative); Blood,Urine Small (Negative); Color,Urine Light Yellow; Glucose,Urine (UA) Negative (Negative); Ketones,Urine Negative (Negative); Leukocyte Esterase,Urine Large (Negative); Mucus,Urine Rare /hpf; Nitrite,Urine Negative (Negative); Protein,Urine Negative (Negative); RBC,Urine 6 /hpf (0-5); Specific Gravity,Urine 1.017 (1.001-1.035); Squamous Epithelial Cell,Urine 1 /hpf (0-4); Urobilinogen,Urine <2.0 mg/dL (<2.0); WBC,Urine 126 /hpf (0-5)
[2023-12-10 12:08] VITALS: BP 138/70; PULSE 70
[2023-12-10] MEDS: CEPHALEXIN 500 MG CAP PO STA (14:24)
--- NOTE | 2023-12-10 15:53 | P.PN ---
Subjective Progress Note Date: 12/10/23 HISTORY OF PRESENT ILLNESS: This is a 88-year-old female with a past medical history significant for sick sinus syndrome refusing pacemaker implantation, paroxysmal atrial fibrillation, hyperlipidemia, hypothyroidism, and hypertension. Patient follows in the office with Dr. Jorgensen. We have been asked to see the patient in consultation for A-fib with RVR. Patient examined at the bedside. Patient daughter is at the bedside and providing majority of HPI. Apparently yesterday the patient had a right- sided facial droop and was feeling very weak and tired so they brought her to the hospital for further evaluation. The patient denied having any palpitations or lightheadedness. Patient was found to be in A-fib with RVR and was started on IV Cardizem. Patient's daughter states that she is still weak this morning and was unable to feed herself breakfast as she was unable to lift her arm. The patient does report having some mild shortness of breath. She denies any chest pain or pressure. During evaluation patient was in A-fib with RVR. At the end of examination, patient converted to sinus bradycardia with a heart rate in the 40s. The patient does have a known history of sick sinus syndrome. Her primary head of human resources, Dr. Jorgensen, recommended pacemaker implantation but patient has been refusing. DIAGNOSTICS: - EKG reveals A-fib with RVR. Repeat EKG reveals sinus bradycardia with heart rate of 50. Left bundle branch block.. - Chest xray negative for acute process. - Laboratory data: WBC 10.9. Hemoglobin 15.8. Platelet count 318. Sodium 137. Potassium 5.0. BUN 22. Creatinine 0.92. Magnesium 2.0. Troponin negative x 3. proBNP 5030. TSH 2.580. - Current home cardiac medications include amlodipine 5 mg daily, Eliquis 5 mg twice a day, Lipitor 20 mg at night, metoprolol succinate 12.5 mg daily. - Most recent echocardiogram obtained in March 2023 revealed ejection fraction 55 to 60%, moderate to severe MR, moderate TR, trace AR, mild pulmonary hypertension 12/10/2023 Patient is seen and examined at bedside this a.m. Patient continues to be in sinus rhythm. Her average heart rate while patient is resting in bed is around 60s on metoprolol 25 mg succinate daily. She is much alert and oriented as compared to yesterday. Denies any chest pain chest pressure. She appears euvolemic. PHYSICAL EXAM: VITAL SIGNS: Reviewed. GENERAL: Well-developed in no acute distress. HEENT: Head is normocephalic. Pupils are equal, round. Sclerae anicteric. Mucous membranes of the mouth are moist. Neck supple. No JVD or thyromegaly LUNGS: Respirations even and unlabored. Lungs essentially clear to auscultation bilaterally. HEART: Regular rate and rhythm. S1 and S2 heard. Systolic murmur noted ABDOMEN: Soft. Nondistended. Nontender. EXTREMITIES: Normal range of motion. No clubbing or cyanosis. NEUROLOGIC: Awake and alert. Oriented x 3. ASSESSMENT: Generalized weakness and fatigue Paroxysmal atrial fibrillation with RVR Sinus bradycardia Sick sinus syndrome, currently refusing pacemaker implantation Known left bundle branch block Valvular heart disease including moderate to severe MR, moderate TR, trace AR Mild pulmonary hypertension Hyperlipidemia Hypertension Hypothyroidism PLAN: Generalized weakness most likely because of atrial fibrillation on admission. She might also have component of generalized weakness from sick sinus syndrome related bradycardia. Increase metoprolol to metoprolol succinate 25 mg daily to be discharged on. She was on 12.5 mg prior to coming to the hospital. Continue Eliquis. Patient to have 30-day event monitor placed prior to discharge I had a detailed discussion with the patient that she might need pacemaker in future. There was some question that patient denied pacemakers in the past. I was able to answer questions and she is willing to have a pacemaker if clinically indicated in future. At this time she does not have any clear indication for having pacemaker placed. She does have history of sick sinus syndrome but currently her heart rate while resting is in 60s. She does have a tendency of going bradycardic after getting converted out of atrial fibrillation. At this time patient is cleared from cardiovascular standpoint to be discharged. She will need outpatient follow-up with Dr. Esquivel Objective - Vital Signs Vital signs: Vital Signs Temp 98.2 F 12/10/23 09:17 Pulse 70 12/10/23 11:48 Resp 20 12/10/23 11:48 BP 138/70 12/10/23 11:48 Pulse Ox 92 L 12/10/23 11:48 FiO2 Intake & Output 12/09/23 12/10/23 12/10/23 18:59 06:59 18:59 Intake Total 987 356 Balance 987 356 Intake: Intake, IV Titration 93 Amount Diltiazem 125 mg In 93 Sodium Chloride 0.9% 100 ml @ 15 MG/HR 15 mls/hr IV .Q8H20M [facility] Rx#: [id number] Oral 275 [id number] Other: Voiding Method Bedpan Toilet Toilet Diaper Diaper Diaper # Voids 1 1 2 # Bowel Movements 1 - Labs CBC & Chem 7: 12/08/23 13:53 12/08/23 13:53 Labs: Abnormal Lab Results - Last 24 Hours (Table) 12/09/23 12/10/23 Range/Units 08:02 10:17 Triglycerides 214.00 H (0.00-149.00) mg/dL VLDL Cholesterol, Calc 42.80 H (5.00-40.00) mg/dL HDL Cholesterol 33.60 L (40.00-60.00) mg/dL Urine Appearance Cloudy H (Clear) Urine Blood Small H (Negative) Ur Leukocyte Esterase Large H (Negative) Urine RBC 6 H (0-5) /hpf Urine WBC 126 H (0-5) /hpf Urine Bacteria Rare H (None) /hpf Urine Mucus Rare H (None) /hpf
--- NOTE | 2023-12-10 19:37 | P.DS ---
Providers Date of admission: 12/08/23 16:16 Expected date of discharge: 12/10/23 Attending physician: Jeff Ness Consults: 12/08/23 16:11 Consult Physician Urgent Consulting Provider: [facility] Reason/Comments: A-fib with rapid ventricular response Do you want consulting provider notified?: Yes Primary care physician: [facility] Course: Chief Complaint: Weak dizzy Pleasant 88-year-old female with PMH of atrial fibrillation, dyslipidemia, hypothyroidism, LBBB.,, follows with PCP Dr. Anne. [employer] Dr. Calvin Jorgensen. Lives at [facility] was visited assisted living. Uses a walker at baseline's. Per the EMS report they informed the EMS that patient had been out of it all day. They noticed some facial droop and right-sided arm drift. Patient is lethargic all morning.. In the ER patient not found to have any weakness. But a heart rate of 155. Was given Cardizem bolus of 5 mg and put on a drip. Still feels tired no chest pain or palpitation. Daughter does state that heart rate has been not been easy to control by her heat treat supervisor. December 08: Patient was on Cardizem drip. Converted earlier today to sinus rhythm. Per cardiology patient has known sick sinus syndrome. Her primary heat treat supervisor Dr. Jorgensen recommended pacemaker but patient had been refusing. Patient placed on Toprol-XL 25 today. Daughter at the bedside. Will see how patient does with that today. December 09: Patient doing well. Daughter at the bedside. Discussed with Dr. Hoff. Patient Toprol-XL increased to 25 mg. Patient will follow-up with Dr. Jorgensen. Daughter feels patient can go back to assisted living. Home care is being sent out. Heart rate currently 70s. Patient is complaining of dysuria. UA positive. Will treat with Keflex Discussion and discharge planning more than 35 minutes Social history: Lives at [facility] assisted living. Does use a walker. Physical examination: VITAL SIGNS: 98.2, 70, 20, 138 x 70, 92% room air GENERAL: Reclining bed comfortable, smiling EYES: Pupils equal. Conjunctiva amanuel l. HEENT: External appearance of nose and ears normal, oral cavity grossly normal. NECK: JVD not raised; masses not palpable. HEART: Heart is irregular l; no edema]. LUNGS: Respiratory rate normal; clear to auscultation. ABDOMEN: Soft, nontender, liver spleen not palpable, no masses palpable. PSYCH: Alert and oriented x3; mood and affect amanuel l. MUSCULOSKELETAL:No Clubbing/cyanosis;muscles-grossly intact OA INVESTIGATIONS, reviewed in the clinical context: December 08, 2023: White count 10.9 hemoglobin 15.8 platelets 318 sodium 137 potassium 5 BUN 22 creatinine 0.92 Troponin I less than 0.012 proBNP 5030 TSH 2.5 EKG tracing personally reviewed by me-atrial fibrillation. Left bundle branch block. Rate 155 Chest x-ray film personally reviewed by me-cardiomegaly. Some venous prominence Assessment and plan: -Persistent atrial fibrillation now presented with rapid ventricular rate, symptomatic: Now sinus rhythm Cardizem drip-discontinued. Eliquis Toprol-XL 25 -Sinus bradycardia Patient has been offered pacemaker through her primary heat treat supervisor Dr. Jorgensen. Patient had deferred -Acute UTI with cystitis Keflex -Hypothyroid Synthroid 125 -Chronic LBBB -Primary osteoarthritis specially the knees Tylenol as needed -Chronic gait dysfunction uses a walker at baseline -Hyperlipidemia Lipitor -Essential hypertension Toprol-XL milligram 25 twice daily. Amlodipine 5 -DNR Disposition: [facility]. With home care Past Medical History Past Medical History: Atrial Fibrillation, Coronary Artery Disease (CAD), Hypertension, Thyroid Disorder History of Any Multi-Drug Resistant Organisms: None Reported Past Surgical History: Joint Replacement Additional Past Surgical History / Comment(s): bilateral Knee replacement Past Anesthesia/Blood Transfusion Reactions: No Reported Reaction Past Psychological History: No Psychological Hx Reported Smoking Status: Former smoker Past Alcohol Use History: Daily Past Drug Use History: None Reported Plan - Discharge Summary Discharge Rx Participant: No New Discharge Prescriptions: New Cephalexin [Keflex] 500 mg PO Q6HR #20 cap Continue Cholecalciferol [Vitamin D3 (25 Mcg = 1000 Iu)] 25 mcg PO DAILY@0800 Vit C/E/Zn/Coppr/Lutein/Zeaxan [Preservision Areds 2 Softgel] 1 cap PO BID@799,1999 Acetaminophen [Tylenol] 650 mg PO Q6H PRN PRN Reason: Pain Or Fever > 100.5 Chlorhexidine Gluconate [Peridex] 1 ml PO BID@08 amLODIPine [Norvasc] 5 mg PO DAILY@0800 Cyanocobalamin (Vitamin B-12) [Vitamin B-12] 1,000 mcg PO DAILY@0800 Raloxifene HCl 60 mg PO DAILY@08 Atorvastatin [Lipitor] 20 mg PO HS@1999 Apixaban [Eliquis] 5 mg PO BID@799,1999 Melatonin 5 mg PO HS@1999 Levothyroxine Sodium [Synthroid] 125 mcg PO DAILY@0700 Changed Metoprolol Succinate [Metoprolol Succinate ER] 25 mg PO DAILY@0800 #30 tab Discontinued Docusate [Colace] 100 mg PO BID@799,1999 Discharge Medication List Apixaban [Eliquis] 5 mg PO BID@799,199906/21/21 [History] Atorvastatin [Lipitor] 20 mg PO HS@199906/21/21 [History] Cholecalciferol [Vitamin D3 (25 Mcg = 1000 Iu)] 25 mcg PO DAILY@0806/21/21 [History] Raloxifene HCl 60 mg PO DAILY@79906/21/21 [History] Vit C/E/Zn/Coppr/Lutein/Zeaxan [Preservision Areds 2 Softgel] 1 cap PO BID@799,199906/21/21 [History] Acetaminophen [Tylenol] 650 mg PO Q6H PRN 04/26/23 [History] Levothyroxine Sodium [Synthroid] 125 mcg PO DAILY@0700 04/26/23 [History] Melatonin 5 mg PO HS@199904/26/23 [History] Chlorhexidine Gluconate [Peridex] 1 ml PO BID@11/28/23 [History] Cyanocobalamin (Vitamin B-12) [Vitamin B-12] 1,000 mcg PO DAILY@0800 11/28/23 [History] amLODIPine [Norvasc] 5 mg PO DAILY@0811/28/23 [History] Cephalexin [Keflex] 500 mg PO Q6HR #20 cap 12/10/23 [Rx] Metoprolol Succinate [Metoprolol Succinate ER] 25 mg PO DAILY@0800 #30 tab 12/10/23 [Rx] Follow up Appointment(s)/Referral(s): [facility], [NON-STAFF] - Niko Anne MD [Primary Care Provider] - 1-2 days (Please make follow up appointment MAYDA.) Juan Jorgensen MD [STAFF PHYSICIAN] - 1 Week (Please make follow up appointment MAYDA.) Patient Instructions/Handouts: A-fib (Atrial Fibrillation) (DC), Urinary Tract Infection in Women (DC) Discharge Disposition: HOME SELF-CARE
== END 2023-12-10 15:05 | disposition home health service (06) | DRG 309 ==
LOC: EC 13:38 → 3SCARD 16:16
PROVIDERS: ADMIT Hospitalist; ATTEND Hospitalist
PROC: 3E033RZ Introduction of Antiarrhythmic into Peripheral Vein, Percutaneous Approach (ICD-10-PCS; principal; 2023-12-08)
DX: I48.19 Other persistent atrial fibrillation (principal); N30.00 Acute cystitis without hematuria; I27.20 Pulmonary hypertension, unspecified; I49.5 Sick sinus syndrome; E03.9 Hypothyroidism, unspecified; I10 Essential (primary) hypertension; I08.1 Rheumatic disorders of both mitral and tricuspid valves; Z66 Do not resuscitate; I25.10 Atherosclerotic heart disease of native coronary artery without angina pectoris; I44.7 Left bundle-branch block, unspecified; E78.5 Hyperlipidemia, unspecified; R26.9 Unspecified abnormalities of gait and mobility; R53.1 Weakness; M19.91 Primary osteoarthritis, unspecified site; Z79.01 Long term (current) use of anticoagulants; Z79.890 Hormone replacement therapy; Z79.899 Other long term (current) drug therapy; Z87.891 Personal history of nicotine dependence; Z96.653 Presence of artificial knee joint, bilateral
CPT/HCPCS: 36415; 70450; 71046; 80053; 80061; 81001; 83735; 83880; 84443; 84484; 85025; 85610; 85730; 87077; 87086; 87186; 93005; 93270; 96365; 96366; 99291